=== PATIENT | female | born 1935 | race Caucasian/White ===

== ENCOUNTER 2016-07-23 10:06 | Inpatient (IN) | payer OTHER, BC ==
--- NOTE | 2016-07-23 10:20 | CPEKG ---
Heart Rate: 56 RR Interval: 1071 P-R Interval: 172 QRSD Interval: 112 QT Interval: 482 QTC Interval: 466 P Tilly: 69 QRS Tilly: 72 T Wave Tilly: 222 EKG Severity - ABNORMAL ECG - EKG Impression: SINUS RHYTHM EKG Impression: NONSPECIFIC INTRAVENTRICULAR CONDUCTION DELAY EKG Impression: BORDERLINE INFERIOR Q WAVES EKG Impression: MINIMAL ST DEPRESSION, LATERAL LEADS Electronically Signed By: Jordan Watkins 24-Jul-2016 14:19:42
--- NOTE | 2016-07-23 10:43 | EDPHY ---
H & P Time Seen by Provider: 07/23/16 10:10 HPI/ROS: CHIEF COMPLAINT: Syncope HISTORY OF PRESENT ILLNESS: Patient is an 81-year-old female with a history of diabetes hypertension and CHF who presents to the emergency department with a syncopal episode. The patient states she was walking in her backyard. She felt lightheaded and dizzy. Per her neighbor she sat down and put her head between her legs. She then had a syncopal episode. EMS was called. Patient has no complaints on arrival to the emergency department. She denies any headache. No lightheadedness or dizziness. No chest pain or shortness of breath. Patient denies any trauma. The patient is without complaint. REVIEW OF SYSTEMS: My complete review of systems is negative except as mentioned in the HPI. Past Medical/Surgical History: Includes diabetes, hypertension, CVA, CHF PSH: Cardiac surgery Social: Patient does not smoke Smoking Status: Former smoker Physical Exam: Vitals noted. When I was in the room patient was hypotensive with blood pressure 82/50. Heart rate was 48. At this time the patient had no complaints. She is not lightheaded or dizzy. No chest pain. GENERAL: Well-appearing, in no acute distress, alert. HEENT: Eyes normal to inspection, normal pharynx, no signs of dehydration. NECK: No thyromegaly, no lymphadenopathy, supple. RESPIRATORY: Clear to auscultation bilaterally, no rales, rhonchi or wheezing. CVS: Regular rate and rhythm, no rubs, murmurs, or gallops. ABDOMEN: Soft, nontender, nondistended, no organomegaly. BACK: Normal to inspection, no CVA tenderness. SKIN: Normal color, no rash, warm, dry. No pallor. EXTREMITIES: No pedal edema, no calf tenderness, no Homans sign or cords, no joint swelling. NEURO/PSYCH: Higher functions: Alert and Oriented x3. Normal speech and cognition. Normal mood and affect. Cranial nerves: Normal as tested. Cerebellar: Normal as tested. Good finger to nose, good [id number], normal gait. Peripheral exam: [Normal motor exam. Normal sensation. Normal reflexes. Constitutional: Initial Vital Signs Temperature (C) 36.5 C 07/23/16 10:16 Heart Rate 58 L 07/23/16 10:16 Respiratory Rate 20 07/23/16 10:16 Blood Pressure 82/50 L 07/23/16 10:16 O2 Sat (%) 95 07/23/16 10:16 O2 Delivery Mode Room Air O2 (L/minute) 2 Allergies/Adverse Reactions: Sulfa (Sulfonamide Antibiotics) Allergy (Verified 07/23/16 10:16) Home Medications: Medication Instructions Recorded Aspirin 81mg (*) 07/23/16 Glucotrol 07/23/16 Lantus 100 UNITS/ML (*) 07/23/16 Lasix 07/23/16 Lipitor 07/23/16 Metoprolol Succinate 07/23/16 Synthroid 07/23/16 Medical Decision Making - Diagnostics EKG Interpretation: Sinus bradycardia at 56. Normal axis. Nonspecific interventricular conduction delay. Q-wave in II, III, avf. Minimal edpression in V3. ED Course/Re-evaluation: In the emergency department I met the patient on arrival. Laboratory studies, EKG, portable chest x-ray ordered. Patient was given aspirin 324 mg orally. Pacer pads were placed. Patient was given normal saline 500 mL IV bolus. I am aware the patient has a history of CHF. However, the patient is hypotensive at this time. I rechecked the patient on numerous occasions. She had no new complaints during her stay. She did have labile blood pressure with episodes of hypotension and episodes of normal pressure. Patient's laboratory studies were notable for a mildly elevated creatinine 1.9. CO2 was low at 16. AST and alk-phos mildly elevated. Albumin and protein mildly low. Patient was mildly anemic with hematocrit of 30. Troponin is elevated at 0.4. I discussed the case with the hospitalist service. They agreed to admission. Dr. Beal will admit. Differential Diagnosis: My differential includes but is not limited to ACS, acute [place], dysrhythmia, valvular disease, dehydration, hypoglycemia, electrolyte abnormality, dehydration - Data Points Laboratory Results: Laboratory Results 07/23/16 Unknown 07/23/16 10:31 07/23/16 07/23/16 07/23/16 Unknown Unknown 10:35 WBC 9.97 10^3/uL H 10^3/uL (3.80-9.50) RBC 3.30 10^6/uL L 10^6/uL (4.18-5.33) Hgb 9.2 g/dL L g/dL (12.6-16.3) POC Hgb 10.5 gm/dL L gm/dL (12.3-15.9) Hct 30.5 % L % (38.0-47.0) POC Hct 31 % L % (35.5-47.5) MCV 92.4 fL fL (81.5-99.8) MCH 27.9 pg pg (27.9-34.1) MCHC 30.2 g/dL L g/dL (32.4-36.7) RDW 14.3 % % (11.5-15.2) Plt Count 209 10^3/uL 10^3/uL (150-400) MPV 12.0 fL H fL (8.7-11.7) Neut % (Auto) 72.9 % % (39.3-74.2) Lymph % (Auto) 17.3 % % (15.0-45.0) [place] % (Auto) 6.4 % % (4.5-13.0) Eos % (Auto) 2.4 % % (0.6-7.6) Baso % (Auto) 0.5 % % (0.3-1.7) Nucleat RBC Rel Count 0.0 % % (0.0-0.2) Absolute Neuts (auto) 7.27 10^3/uL H 10^3/uL (1.70-6.50) Absolute Lymphs (auto) 1.72 10^3/uL 10^3/uL (1.00-3.00) Absolute Monos (auto) 0.64 10^3/uL 10^3/uL (0.30-0.80) Absolute Eos (auto) 0.24 10^3/uL 10^3/uL (0.03-0.40) Absolute Basos (auto) 0.05 10^3/uL 10^3/uL (0.02-0.10) Absolute Nucleated RBC 0.00 10^3/uL 10^3/uL (0-0.01) Immature Gran % 0.5 % % (0.0-1.1) Immature Gran # 0.05 10^3/uL 10^3/uL (0.00-0.10) PT 14.0 SEC SEC (12.0-15.0) INR 1.09 (0.83-1.16) APTT 31.5 SEC SEC (23.0-38.0) POC Sodium 142 mEq/L mEq/L (134-144) Sodium POC Potassium 4.6 mEq/L mEq/L (3.3-5.0) Potassium POC Chloride 113 mEq/L H mEq/L (96-108) Chloride Carbon Dioxide Anion Gap POC BUN 47 mg/dL H mg/dL (7-23) BUN Creatinine POC Creatinine 2.0 mg/dL H mg/dL (0.6-1.2) Estimated GFR Glucose POC Glucose 241 mg/dL H mg/dL (70-100) Calcium Total Bilirubin AST ALT Alkaline Phosphatase Troponin I Total Protein Albumin 07/23/16 10:31 WBC RBC Hgb POC Hgb Hct POC Hct MCV MCH MCHC RDW Plt Count MPV Neut % (Auto) Lymph % (Auto) [place] % (Auto) Eos % (Auto) Baso % (Auto) Nucleat RBC Rel Count Absolute Neuts (auto) Absolute Lymphs (auto) Absolute Monos (auto) Absolute Eos (auto) Absolute Basos (auto) Absolute Nucleated RBC Immature Gran % Immature Gran # PT INR APTT POC Sodium Sodium 141 mEq/L mEq/L (134-144) POC Potassium Potassium 5.2 mEq/L mEq/L (3.5-5.2) POC Chloride Chloride 113 mEq/L H mEq/L (97-110) Carbon Dioxide 16 mEq/l L mEq/l (22-31) Anion Gap 12 mEq/L mEq/L (8-16) POC BUN BUN 51 mg/dL H mg/dL (7-23) Creatinine 1.9 mg/dL H mg/dL (0.6-1.0) POC Creatinine Estimated GFR 25 Glucose 244 mg/dL H mg/dL (70-100) POC Glucose Calcium 9.2 mg/dL mg/dL (8.5-10.4) Total Bilirubin 0.7 mg/dL mg/dL (0.1-1.4) AST 75 IU/L H IU/L (14-46) ALT 40 IU/L IU/L (9-52) Alkaline Phosphatase 131 IU/L H IU/L (38-126) Troponin I 0.400 ng/mL H ng/mL (0-0.034) Total Protein 5.6 g/dL L g/dL (6.3-8.2) Albumin 3.2 g/dL L g/dL (3.5-5.0) Medications Given: Discontinued Medications Sodium Chloride (Ns) 500 mls @ 0 mls/hr IV EDNOW ONE PRN Reason: Wide Open Stop: 07/23/16 10:52 Last Admin: 07/23/16 10:35 Dose: 500 mls Point of Care Test Results: 07/23/16 10:35 POC Sodium 142 POC Potassium 4.6 POC Chloride 113 H POC BUN 47 H POC Creatinine 2.0 H POC Glucose 241 H Departure - Departure Disposition: [facility] Inpatient Acute Clinical Impression: Bradycardia, Elevated troponin Syncope Qualifiers: Syncope type: unspecified Qualified Code(s): R55 - Syncope and collapse Condition: Good Referrals: Patient,NotPresent [Primary Care Provider] - As per Instructions
[2016-07-23] MEDS ORDERED: NS 500 ML IV ONE (10:51)
[2016-07-23 11:48] LABS: % IMMATURE GRANULYOCYTES 0.5 % (0.0-1.1); ABSOLUTE IMMATURE GRANULOCYTES 0.05 10^3/uL (0.00-0.10); ADD DIFF? NO; ADD MORPH? NO; ADD SCAN? NO; ATYPICAL LYMPHOCYTE FLAG 10 (0-99); FRAGMENT RBC FLAG 0 (0-99); HEMATOCRIT 30.5 % (38.0-47.0); HEMOGLOBIN 9.2 g/dL (12.6-16.3); LEFT SHIFT FLG 0 (0-99); LIPEMIA HEMOLYSIS FLAG 80 (0-99); MEAN CELL HEMOGLOBIN 27.9 pg (27.9-34.1); MEAN CELL HEMOGLOBIN CONCENTR. 30.2 g/dL (32.4-36.7); MEAN CELL VOLUME 92.4 fL (81.5-99.8); PLATELET CLUMPS FLAG 10 (0-99); PLATELET COUNT 209 10^3/uL (150-400); RED CELL DISTRIBUTION WIDTH 14.3 % (11.5-15.2)
[2016-07-23 11:58] LABS: ALANINE AMINOTRANSFERASE 40 IU/L (9-52); ALBUMIN 3.2 g/dL (3.5-5.0); ALKALINE PHOSPHATASE 131 IU/L (38-126); ANION GAP 12 mEq/L (8-16); ASPARTATE AMINOTRANSFERASE 75 IU/L (14-46); BILIRUBIN,TOTAL 0.7 mg/dL (0.1-1.4); CALCIUM 9.2 mg/dL (8.5-10.4); CARBON DIOXIDE 16 mEq/l (22-31); CHLORIDE 113 mEq/L (97-110); CREATININE 1.9 mg/dL (0.6-1.0); GLOMERULAR FILTRATION RATE 25; GLUCOSE 244 mg/dL (70-100); POTASSIUM 5.2 mEq/L (3.5-5.2); SODIUM 141 mEq/L (134-144); TOTAL PROTEIN 5.6 g/dL (6.3-8.2)
[2016-07-23 11:58] LABS: INR 1.09 (0.83-1.16)
[2016-07-23 11:59] LABS: APTT 31.5 SEC (23.0-38.0)
[2016-07-23] MEDS ORDERED: ONDANSETRON 4 MG/2 ML VIAL IVP PRN (14:15)
[2016-07-23] MEDS ORDERED: ONDANSETRON DISINTEGRATING 4 MG TAB PO PRN (14:15)
[2016-07-23] MEDS ORDERED: D50W 25 GM/50 ML SYR IVP PRN (14:22)
--- NOTE | 2016-07-23 15:47 | CPEKG ---
Heart Rate: 71 RR Interval: 845 P-R Interval: 168 QRSD Interval: 110 QT Interval: 416 QTC Interval: 453 P [place]: 71 QRS [place]: 68 T Wave [place]: 247 EKG Severity - ABNORMAL ECG - EKG Impression: SINUS ARRHYTHMIA, RATE 62-86 EKG Impression: NONSPECIFIC INTRAVENTRICULAR CONDUCTION DELAY EKG Impression: BORDERLINE INFERIOR Q WAVES EKG Impression: BORDERLINE ST DEPRESSION, DIFFUSE LEADS Electronically Signed By: Jordan Watkins 24-Jul-2016 14:19:14
--- NOTE | 2016-07-23 15:50 | PDGENHP ---
History and Physical - Chief Complaint syncope History Information - Allergies/Home Medication List Allergies/Adverse Reactions: Sulfa (Sulfonamide Antibiotics) Allergy (Verified 07/23/16 10:16) Home Medications: Acetaminophen [Tylenol ES 500 mg (*)] 1,000 mg PO DAILY 07/23/16 [Last Taken Unknown] Acetaminophen [Tylenol ES 500 mg (*)] 500 mg PO DAILY@1800 07/23/16 [Last Taken Unknown] Aspirin [Aspirin 81mg (*)] 81 mg PO DAILY 07/23/16 [Last Taken Unknown] Atorvastatin Calcium [Lipitor 40 mg (*)] 80 mg PO DAILY 07/23/16 [Last Taken Unknown] Cholecalciferol Vit D3 [Vitamin D3 (*)] 2,000 units PO DAILY 07/23/16 [Last Taken Unknown] Cyanocobalamin [Vitamin B12 (*)] 2,000 mcg PO DAILY 07/23/16 [Last Taken Unknown ] Furosemide [Furosemide] 40 mg PO DAILY 07/23/16 [Last Taken Unknown] Herbals/Supplements -Info Only 1 ea PO DAILY 07/23/16 [Last Taken Unknown] Hydrocortisone 2.5% [Hydrocortisone 2.5% cream (*)] 1 bruno TP BID PRN 07/23/16 [ Last Taken Unknown] Levothyroxine Sodium 75 mcg PO DAILY@06 07/23/16 [Last Taken Unknown] Metoprolol Succinate [TOPROL XL] 12.5 mg PO DAILY 07/23/16 [Last Taken Unknown] Omeprazole [Prilosec 20 mg] 20 mg PO DAILY 07/23/16 [Last Taken Unknown] I have personally reviewed and updated: family history, medical history, social history, surgical history - Past Medical History coronary artery disease, CHF, CVA, diabetes type 2, hypertension, hyperlipidemia Additional medical history: CAD - s/p CABG 1998, h/o CVA - Surgical History Additional surgical history: CABG 1998 - Family History Additional family history: both parents are - Social History Smoking Status: Former smoker Alcohol Use: None Drug Use: None Additional social history: Lives alone since her daughter 4 yrs ago. Other daughter, Alejandra, lives in [facility]. Retired from [employer]. Review of Systems ROS: 10pt was reviewed & negative except for what was stated in HPI & below Physical Exam Temp Pulse Resp BP Pulse Ox 36.3 C 69 16 159/86 H 99 07/23/16 13:50 07/23/16 13:50 07/23/16 13:50 07/23/16 13:50 07/23/16 13:50 O2 (L/minute) 1 Constitutional: no apparent distress Eyes: PERRL Ears, Nose, Mouth, Throat: moist mucous membranes Cardiovascular: regular rate and rhythym, systolic murmur Respiratory: no respiratory distress, clear to auscultation Gastrointestinal: normoactive bowel sounds, soft, non-tender abdomen Skin: warm Musculoskeletal: full muscle strength, other (2+ b/l LE edema) Psychiatric: poor insight, poor memory Lab Data & Imaging Review 07/23/16 Unknown 07/23/16 10:31 WBC 9.97 10^3/uL (3.80-9.50) H 07/23/16 Unknown RBC 3.30 10^6/uL (4.18-5.33) L 07/23/16 Unknown Hgb 9.2 g/dL (12.6-16.3) L 07/23/16 Unknown POC Hgb 10.5 gm/dL (12.3-15.9) L 07/23/16 10:35 Hct 30.5 % (38.0-47.0) L 07/23/16 Unknown POC Hct 31 % (35.5-47.5) L 07/23/16 10:35 MCV 92.4 fL (81.5-99.8) 07/23/16 Unknown MCH 27.9 pg (27.9-34.1) 07/23/16 Unknown MCHC 30.2 g/dL (32.4-36.7) L 07/23/16 Unknown RDW 14.3 % (11.5-15.2) 07/23/16 Unknown Plt Count 209 10^3/uL (150-400) 07/23/16 Unknown MPV 12.0 fL (8.7-11.7) H 07/23/16 Unknown Neut % (Auto) 72.9 % (39.3-74.2) 07/23/16 Unknown Lymph % (Auto) 17.3 % (15.0-45.0) 07/23/16 Unknown [place] % (Auto) 6.4 % (4.5-13.0) 07/23/16 Unknown Eos % (Auto) 2.4 % (0.6-7.6) 07/23/16 Unknown Baso % (Auto) 0.5 % (0.3-1.7) 07/23/16 Unknown Nucleat RBC Rel Count 0.0 % (0.0-0.2) 07/23/16 Unknown Absolute Neuts (auto) 7.27 10^3/uL (1.70-6.50) H 07/23/16 Unknown Absolute Lymphs (auto) 1.72 10^3/uL (1.00-3.00) 07/23/16 Unknown Absolute Monos (auto) 0.64 10^3/uL (0.30-0.80) 07/23/16 Unknown Absolute Eos (auto) 0.24 10^3/uL (0.03-0.40) 07/23/16 Unknown Absolute Basos (auto) 0.05 10^3/uL (0.02-0.10) 07/23/16 Unknown Absolute Nucleated RBC 0.00 10^3/uL (0-0.01) 07/23/16 Unknown Immature Gran % 0.5 % (0.0-1.1) 07/23/16 Unknown Immature Gran # 0.05 10^3/uL (0.00-0.10) 07/23/16 Unknown PT 14.0 SEC (12.0-15.0) 07/23/16 Unknown INR 1.09 (0.83-1.16) 07/23/16 Unknown APTT 31.5 SEC (23.0-38.0) 07/23/16 Unknown VBG Lactic Acid 1.4 mmol/L (0.7-2.1) 07/23/16 14:50 POC Sodium 142 mEq/L (134-144) 07/23/16 10:35 Sodium 141 mEq/L (134-144) 07/23/16 10:31 POC Potassium 4.6 mEq/L (3.3-5.0) 07/23/16 10:35 Potassium 5.2 mEq/L (3.5-5.2) 07/23/16 10:31 POC Chloride 113 mEq/L (96-108) H 07/23/16 10:35 Chloride 113 mEq/L (97-110) H 07/23/16 10:31 Carbon Dioxide 16 mEq/l (22-31) L 07/23/16 10:31 Anion Gap 12 mEq/L (8-16) 07/23/16 10:31 POC BUN 47 mg/dL (7-23) H 07/23/16 10:35 BUN 51 mg/dL (7-23) H 07/23/16 10:31 Creatinine 1.9 mg/dL (0.6-1.0) H 07/23/16 10:31 POC Creatinine 2.0 mg/dL (0.6-1.2) H 07/23/16 10:35 Estimated GFR 25 07/23/16 10:31 Glucose 244 mg/dL (70-100) H 07/23/16 10:31 POC Glucose 241 mg/dL (70-100) H 07/23/16 10:35 Calcium 9.2 mg/dL (8.5-10.4) 07/23/16 10:31 Total Bilirubin 0.7 mg/dL (0.1-1.4) 07/23/16 10:31 AST 75 IU/L (14-46) H 07/23/16 10:31 ALT 40 IU/L (9-52) 07/23/16 10:31 Alkaline Phosphatase 131 IU/L (38-126) H 07/23/16 10:31 Troponin I 0.400 ng/mL (0-0.034) H 07/23/16 10:31 Total Protein 5.6 g/dL (6.3-8.2) L 07/23/16 10:31 Albumin 3.2 g/dL (3.5-5.0) L 07/23/16 10:31 Assessment & Plan Assessment: NSTEMI in 81 yo diabetic female with h/o CAD s/p CABG in 1998 - Presented with syncope, hypotension and bradycardia. Trop up to 1.5, EKG with downsloping ST segments in inferior / lateral leads and mild dynamic changes. Pt is currently CP free and never had CP, but felt very weak prior to collapsing. Echo shows inferior hypokinesis, which is new from prior 2014 echo (reviewed in [place]). Also has moderate MR, mod-severe TR and pulmonary pressures in the 70 range. -Cardiology consulted, discussed with Dr. Carvajal, deferring angiogram at this time, in favor of medical management -Heparin drip, NPO at midnight to re-evaluate indication for angiogram in am -Full dose ASA now -Cont outpt statin, low dose BB -Repeat EKG in am or prn for CP -Cont to trend trop, notify cards if change in status or trop markedly elevated (>5) Syncope - Possibly in setting of NSTEMI, but also considered PE with increased PAP's on echo. Cr is elevated so can't have CTA. -check LE dopplers -she is being anti-coagulated as above -monitor on tele Hypotension / Bradycardia - Suspect 2/2 NSTEMI, completely resolved after 500 cc fluid bolus in ED. Lactate normal. No e/o infection to raise suspicion for septic shock. -check blood cultures -Echo / NSTEMI management as above. -telemetry -resume low dose BB per discussion with cards due to NSTEMI indication, hold for bradycardia or hypotension GERARDO - Unclear what her baseline is. Suspect pre-renal vs ATN in setting of hypotension and VA. -Check urine Cr and urine Na to calculate FeNa. -Hold Lasix for now -trend creatinine -consider nephrology consult if Cr on the rise H/O HF - Has h/o diastolic failure, EF now 30-35% with new hypokinesis. No e/o overt failure though LE edema and mild JVD noted. -closely monitor volume status, resume Lasix as indicated LE edema - may be a venous stasis component. -LE duplex as above DM - Hyperglycemic ~200's on arrival. Per the med rec, she is not on oral hypoglycemics. -SSI for glycemic control, up-titrate as indicated. Cognitive changes - inappropriate laughing, poor memory. Unclear if she has some baseline dementia. -CT head now -speech / full cog eval requested DVT PPLX - Heparin Code status - discussed with patient and daughter Alejandra, who will arrive tomorrow. Both agree she wishes to be DNR.
[2016-07-23 15:54] LABS: COLOR YELLOW; LEUKOCYTE ESTERASE,URINE TRACE (NEGATIVE); NITRITE,URINE NEGATIVE (NEGATIVE)
[2016-07-23 15:56] LABS: MUCUS TRACE /lpf (NONE-1+)
[2016-07-23] MEDS ORDERED: HYDROCORTISONE 2.5% 30 GM CRTUBE TP PRN (16:14)
[2016-07-23] MEDS ORDERED: ASPIRIN 81 MG CHEWABLE TAB PO SCH (16:14)
[2016-07-23 16:15] LABS: HEMOGLOBIN A1C 8.3 % (4.0-6.0)
[2016-07-23] MEDS ORDERED: ASPIRIN 325 MG TAB PO ONE (16:21)
--- NOTE | 2016-07-23 16:22 | ECHO ---
[id number] + + [phone] : : [place] [address] : : [phone] + + Adult Echocardiographic Report + -------+ :Name: COLLIN MARINELLI Date: 07/23/2016 02:25 PM BP: 159/86 mmH g : : Hospital Admission Number: [id number] Locati on: 394: :: 1935 Gender: Female Height: 64 in : :Age: 81 yrs Race: Weight: 184 lb : :Reason For Study: syncope, hypotension : : BSA: 1.9 meter s2 : :History: syncope, hypotension : + -------+ MMode/2D Measurements \T\ Calculations IVSd: 0.96 cm RVDd: 4.3 cm FS: 18.4 % MV Diam: 3.4 cm LVPWd: 0.79 cm LVIDd: 5.1 cm EDV(Teich): 121.2 ml LVIDs: 4.1 cm ESV(Teich): 75.1 ml EF(Teich): 38.0 % LVOT diam: 1.8 cm LVLd ap4: 9.1 cm SV(MOD-sp4): 70.0 ml LVOT area: 2.6 cm2EDV(MOD-sp4): 176.0 ml LVLs ap4: 8.6 cm ESV(MOD-sp4): 106.0 ml EF(MOD-sp4): 39.8 % Normal Measurement Values: + + :LVIDd (3.5-5.7cm) IVSd (0.6-1.1cm) LVPWd (0.6-1.1cm) Aortic Root (2.0-3.7cm)Left Atrium (1.5-4.0cm): :LV Vol(d) (76-115ml) LV Vol(s) (29-48ml) Ejec Fraction (50-65%)PV Keo (0.6- 1.2m/s) TV Keo (0.4-1.0m/s) : :MV E Keo (0.8-1.0m/s)MV A Keo (0.3-1.0m/s)LVOT Keo (0.7-1.2m/s) Asc Ao Keo ( 0.9-1.8m/s) : + + Doppler Measurements \T\ Calculations MV E max keo: MV V2 max: Ao V2 max: AI max keo: 103.7 cm/sec 85.4 cm/sec 167.7 cm/sec 481.4 cm/sec MV A max keo: MV max P.9 mmHg Ao max PG: AI max P.1 cm/sec MV V2 mean: 11.3 mmHg 92.8 mmHg MV E/A: 1.5 46.1 cm/sec Ao mean PG: AI dec slope: MV dec time: MV mean P.7 mmHg 348.3 cm/sec2 0.11 sec 0.97 mmHg Ao V2 mean: AI P1/2t: MV V2 VTI: 23.5 cm 126.1 cm/sec 404.9 msec MV area (1 diam): Ao V2 VTI: 9.3 cm2 44.4 cm ZACKARY(I,D): 1.1 cm2 MVA(VTI): 2.0 cm2 MV Flow area (1diam): 9.3 cm2 LV V1 mean PG: MR max keo: MR(RF 1 diam): SV(MV 1 diam): 1.2 mmHg 609.6 cm/sec 32.4 % 219.9 ml LV V1 mean: MR max PG: SI(MV 1 diam): 51.9 cm/sec 148.6 mmHg 116.5 ml/m2 LV V1 VTI: 18.3 cm SV(LVOT): 46.7 ml PA V2 max: PI end-d keo: TR max keo: RF(MV,LVOT)(1diam): 83.6 cm/sec 129.2 cm/sec 388.2 cm/sec 0.79 PA max PG: TR max P.8 mmHg 60.3 mmHg RAP systole: 10.0 mmHg RVSP(TR): 70.3 mmHg Left Ventricle The left ventricle is normal in size. There is normal left ventricular wall thickness. Ejection Fraction = 35-40%. Left ventricular systolic function is moderately reduced. Moderate diastolic dysfunction with elevated LV filling pressures. Basal inferolateral, inferoseptal and inferior barillas are hypokinetic. Right Ventricle The right ventricle is mildly dilated. The right ventricular systolic function is borderline reduced. Atria The Left Atrial Volume is 43 ml/m2. The left atrium is moderately dilated. The right atrium is mildly dilated. A dilated inferior vena cava suggests increased right atrial pressure. Mitral Valve The mitral valve leaflets appear thickened, but open well. There is moderate mitral annular calcification. There is no mitral valve stenosis. There is moderate mitral regurgitation. ERO = .32, Regurgitant volume = 70ml/beat, vena contracta .5 and regurgitant fraction 33%. Tricuspid Valve The tricuspid valve is normal in structure and function. There is no tricuspid stenosis. There is moderate to severe tricuspid regurgitation. Right ventricular systolic pressure is 65-70mmHg. There is Doppler evidence for severe pulmonary hypertension. Aortic Valve The aortic valve is trileaflet. Mild Aortic Valve Calcification. There is no aortic stenosis. Moderate aortic regurgitation. Pulmonic Valve The pulmonic valve is not well visualized. Mild pulmonic valvular regurgitation. Great Vessels The aortic root is normal size. Pericardium/Pleural There is no pericardial effusion. Conclusion A two-dimensional transthoracic echocardiogram with M-mode and Doppler was performed. Left ventricular systolic function is moderately reduced. Basal inferolateral, inferoseptal and inferior barillas are hypokinetic. Ejection Fraction = 35-40%. The right ventricle is mildly dilated. The right ventricular systolic function is borderline reduced. The Left Atrial Volume is 43 ml/m2. The left atrium is moderately dilated. The right atrium is mildly dilated. A dilated inferior vena cava suggests increased right atrial pressure. The mitral valve leaflets appear thickened, but open well. There is moderate mitral annular calcification. There is moderate mitral regurgitation. ERO = .32, Regurgitant volume = 70ml/beat, vena contracta .5 and regurgitant fraction 33%. There is moderate to severe tricuspid regurgitation. Right ventricular systolic pressure is 65-70mmHg. There is Doppler evidence for severe pulmonary hypertension. Moderate aortic regurgitation. Mild pulmonic valvular regurgitation. Results discussed with Dr. Beal. No prior echo Final Reading Physician: Dr Sheba Carvajal electronically signed on 07/23/2016 04:20 PM Ordering Physician: Sarina Beal Performed By: Renetta Da Silva
[2016-07-23] MEDS ORDERED: HEPARIN 10,000 UNIT/10 ML MDV IVP ONE (16:53)
[2016-07-23] MEDS ORDERED: HEPARIN 10,000 UNIT/10 ML MDV IVP PRN (16:53)
[2016-07-23] MEDS ORDERED: HEPARIN/DEXTROSE 500 ML IV SCH (17:00)
--- NOTE | 2016-07-23 18:14 | GCON ---
[f rep st] CONSULTATION CARDIOLOGY CONSULTATION DATE OF CONSULTATION: 07/23/2016 CHIEF COMPLAINT: Syncope. HISTORY OF PRESENT ILLNESS: We are asked by Dr. Beal to visit with the patient. The patient is an 81-year-old female with a history of bypass, diabetes, hypertension. She was last seen by Dr. Josh orellana in our office in 2014. She was in her normal state of health this morning. She was leaving her house to go have breakfast when she felt suddenly weak and lightheaded. She fell and does not know if she hit her head. She i s not sure if she actually lost consciousness. A neighbor called the ambulance and she was brought to the ER. Initially, she was hypotensive to 77/47, and bradycardic with the lowest heart rate of 4 8. She was given IV fluids with improvement in her vital signs, and she is now somewhat hypertensiv e, 159/86. She has a minimally elevated troponin, and mildly abnormal EKG. She did have an echocar diogram, which I reviewed. This shows a depressed ejection fraction at 35% to 40% with inferior hyp okinesis and valvular heart disease (moderate mitral regurgitation, moderate to severe tricuspid reg urgitation, and moderate aortic regurgitation). She has severe pulmonary hypertension with an estim ated PA systolic pressure of 65-70. Her last echocardiogram in our office was in 2012 and showed no rmal ejection fraction without significant valvular disease. She is now admitted for further evalua tion and management. She was also found to be in renal failure with an unknown baseline creatinine. She is now admitted for further evaluation and management. During my interview, she reports that she feels back to normal. She is no longer lightheaded. She denies associated palpitations or chest discomfort around the time that she had presyncope. In [facility], she has not had problems with chest pain or dyspnea or palpitations. She does have chronic mil d bilateral lower extremity edema. REVIEW OF SYSTEMS: A full 10-point review of systems was performed, was negative except that which is outlined in history of present illness. ALLERGIES: Sulfa. PAST MEDICAL HISTORY: 1. Coronary artery disease with a history of CABG. Her anatomy is not known to me at this time. W e have requested records from the [facility]. Her bypass was in 1979. 2. Hypertension. 3. Diabetes. 4. Past history of tobacco abuse. 5. Obesity. 6. History of stroke, although this is per the patient and I do not see this in her medical record from our office. 7. Hypothyroidism. 8. GERD. OUTPATIENT MEDICATIONS: Tylenol, aspirin 81 mg daily, Atorvastatin 80 mg daily, vitamin D3, vitamin B12, Lasix 40 mg daily, hydrocortisone topically, Synthroid 75 mcg daily, Toprol 12.5 mg daily, and Prilosec 20 mg daily. PAST SOCIAL HISTORY: The patient lives alone. She has a daughter who lives in [facility]. S he no longer smokes cigarettes. She drinks alcohol occasionally. FAMILY HISTORY: Not applicable to the current case. PHYSICAL EXAMINATION: VITAL SIGNS: Blood pressure 159/86, heart rate 69, respiratory rate 16, oxyg en saturation 99% on 1 L nasal cannula. She is afebrile. GENERAL: Well-appearing older female, in no acute distress. She is laughing somewhat inappropriately during our interview. HEENT: Sclerae are clear and free of jaundice. Mucous membranes are moist. Normocephalic, atraumatic. CARDIOVAS CULAR: JVP is approximately 10 cm of water. Carotids equal and 2+ without bruit. Regular rate and rhythm with a 2/6 holosystolic murmur at the left sternal border and the apex. LUNGS: Clear to au scultation bilaterally, without wheeze or rales. ABDOMEN: Obese, soft, nontender, nondistended, wi thout bruits, masses, or hepatosplenomegaly. EXTREMITIES: Warm and well perfused with 1+ pitting e teresita to the midshin bilaterally. She has a well-healed saphenous vein harvest site and also a well- healed sternotomy scar. No cyanosis, no clubbing. LABORATORY DATA: White count 9.97, hematocrit 30.5, platelets are 209. INR is normal. Venous lact ic acid is 1.4. Sodium 142, potassium 4.6, chloride 113, BUN 51, creatinine 1.9, glucose 244. Hemo globin A1c 8.3. AST 75, ALT 40, alk phos 131. Troponin initially 0.4, now 1.5. Urinalysis is not remarkable. EKG x2, reviewed by me. Sinus rhythm with minimal diffuse ST depression. Echocardiogram reviewed by me and as detailed in the history of present illness. Chest x-ray, reviewed by me: Genz-eg-szmeulll cardiomegaly, keom-at-zekllzvx hiatal hernia. No eff usion or infiltrate. No pulmonary edema. ASSESSMENT AND PLAN: 81-year-old female with a history of coronary disease and remote bypass surger y, diabetes, hypertension, admitted with syncope and initially found to be hypotensive and bradycard ic. She is now hemodynamically stable and not complaining of anything, including no chest pain. Sh e does have a mildly elevated troponin and an abnormal echocardiogram, as well as renal insufficienc y with unclear baseline. 1. Elevated troponin/history of coronary disease/history of coronary artery bypass graft: The princess ent has no chest pain. Her EKG does not show ST elevation. Because she has had hemodynamic stabili zation and she has a creatinine of 2, I do not think that she should have urgent cardiac catheteriza tion. We will medically manage her with IV heparin, aspirin, high-dose statin, and low-dose beta bl ocker (we will have to be careful with the latter given her recent bradycardia). Could consider fur ther risk stratification with angiogram depending on her clinical course and repeat labs, including her repeat troponin and creatinine. 2. Cardiomyopathy and valvular heart disease: She does not appear to be in florid heart failure. She does take Lasix as an outpatient, but we have held this due to her renal injury. She does have moderate to severe tricuspid regurgitation, moderate mitral regurgitation, moderate aortic regurgita tion. She also has significant pulmonary hypertension. We will evaluate for deep venous thrombosis with ultrasound, as CT angiogram of her lungs is relatively contraindicated given her renal failure . Medical management of her coronary disease as detailed above. 3. Syncope: This could be cardiac in origin. Monitor on telemetry. Consider cardiac catheterizat ion depending on her clinical course. Could also consider nuclear stress testing as a less invasive option. 4. Hypertension: She presented with hypotension. There was no history of decreased p.o. or viral illness or gastroenteritis. Again, this could have been inferior ischemia with vasovagal bradycardi a and hypotension. This has resolved. Follow on telemetry. Judicious use of beta ena. 5. Diabetes: Per Internal Medicine. Her hemoglobin A1c is just over 8. 6. Renal insufficiency: Unknown baseline. She has received some fluids. Lasix is on hold. Avoid contrast if possible. Check serial creatinine. 7. Code status: Dr. Beal has discussed the patient's case with the patient's daughter as well a s the patient herself, and they confirmed that she is DNR. Thank you for allowing us to participate in the patient's care. We will follow with you. /[id number]/MODL
[2016-07-23] MEDS ORDERED: NS 1,000 ML IV SCH (18:30)
[2016-07-23 18:45] LABS: INR 1.08 (0.83-1.16); PROTIME(PATIENT) 13.9 SEC (12.0-15.0)
[2016-07-23 18:46] LABS: APTT 31.3 SEC (23.0-38.0)
[2016-07-23] MEDS ORDERED: HEPARIN 5,000 UNIT/0.5 ML SYR SC SCH (22:00)
[2016-07-23] MEDS: NS 1,000 ML IV SCH (23:00)
[2016-07-23] MEDS: METOPROLOL TARTRATE 25 MG TAB PO SCH ×2 (23:19→23:54)
[2016-07-23] MEDS: INSULIN LISPRO 100 UNIT/ML SC SCH (23:54)
[2016-07-24 05:21] LABS: % IMMATURE GRANULYOCYTES 0.5 % (0.0-1.1); ABSOLUTE IMMATURE GRANULOCYTES 0.03 10^3/uL (0.00-0.10); ADD DIFF? NO; ADD MORPH? NO; ADD SCAN? NO; ATYPICAL LYMPHOCYTE FLAG 0 (0-99); FRAGMENT RBC FLAG 0 (0-99); HEMATOCRIT 25.1 % (38.0-47.0); HEMOGLOBIN 7.8 g/dL (12.6-16.3); LEFT SHIFT FLG 0 (0-99); LIPEMIA HEMOLYSIS FLAG 80 (0-99); MEAN CELL HEMOGLOBIN CONCENTR. 31.1 g/dL (32.4-36.7); PLATELET CLUMPS FLAG 10 (0-99); PLATELET COUNT 156 10^3/uL (150-400); RED BLOOD CELL COUNT 2.79 10^6/uL (4.18-5.33); RED CELL DISTRIBUTION WIDTH 14.3 % (11.5-15.2)
[2016-07-24 05:24] LABS: ALANINE AMINOTRANSFERASE 40 IU/L (9-52); ALBUMIN 2.9 g/dL (3.5-5.0); ALKALINE PHOSPHATASE 101 IU/L (38-126); ANION GAP 10 mEq/L (8-16); ASPARTATE AMINOTRANSFERASE 52 IU/L (14-46); BILIRUBIN,TOTAL 0.5 mg/dL (0.1-1.4); CALCIUM 8.8 mg/dL (8.5-10.4); CARBON DIOXIDE 17 mEq/l (22-31); CHLORIDE 116 mEq/L (97-110); CREATININE 1.7 mg/dL (0.6-1.0); GLOMERULAR FILTRATION RATE 29; GLUCOSE 145 mg/dL (70-100); SODIUM 143 mEq/L (134-144); TOTAL PROTEIN 5.2 g/dL (6.3-8.2)
[2016-07-24] MEDS: LEVOTHYROXINE 75 MCG TAB PO SCH (07:11)
[2016-07-24] MEDS: ATORVASTATIN CALCIUM 40 MG TAB PO SCH (07:14)
[2016-07-24] MEDS: ASPIRIN 81 MG CHEWABLE TAB PO SCH (07:14)
[2016-07-24] MEDS: METOPROLOL TARTRATE 25 MG TAB PO SCH ×2 (07:14→19:54)
[2016-07-24] MEDS ORDERED: PANTOPRAZOLE SODIUM 40 MG TAB PO SCH (09:00)
--- NOTE | 2016-07-24 09:06 | CPEKG ---
Heart Rate: 53 RR Interval: 1132 P-R Interval: 168 QRSD Interval: 98 QT Interval: 496 QTC Interval: 466 P Sontag: 68 QRS Sontag: 69 T Wave Sontag: 255 EKG Severity - ABNORMAL ECG - EKG Impression: SINUS RHYTHM EKG Impression: INFERIOR Q WAVES EKG Impression: ABNORMAL T, CONSIDER ISCHEMIA, DIFFUSE LEADS Electronically Signed By: Jordan Watkins 24-Jul-2016 14:18:54
[2016-07-24] MEDS ORDERED: PANTOPRAZOLE SODIUM 80 MG in NS 100 ML IV ONE ×2 (11:32→16:00)
[2016-07-24] MEDS ORDERED: ALTEPLASE 2 MG VIAL IVP PRN (11:37)
[2016-07-24 12:14] LABS: HEMATOCRIT 29.7 % (38.0-47.0); HEMOGLOBIN 9.2 g/dL (12.6-16.3)
[2016-07-24] MEDS: INSULIN LISPRO 100 UNIT/ML SC SCH ×3 (12:17→19:52)
--- NOTE | 2016-07-24 14:10 | GCON ---
[f rep st] CONSULTATION CHIEF COMPLAINT: Melenic stool. HISTORY OF PRESENT ILLNESS: This is a very pleasant 81-year-old woman who presented to the hospital after a syncopal episode. She does have a history of coronary artery disease. She has had previous coronary artery bypass graft surgery. She also has history of diabetes mellitus and hypertension. She is followed by Dr. Butt. On the morning of admission, she was leaving her house to have breakfast with some friends. On the way out of her house she had a syncopal episode. This apparently was witnessed by a neighbor. She did wake up soon after the episode. EMS was called, and patient was brought to the emergency department. She was initially hypotensive and bradycardic. She was given IV fluids, with improvement of her vital signs. She has been hypertensive since she has been in the hospital. She did have an elevated troponin on admission, and had abnormal EKG with ST depression inferiorly. She had a previous cardiac echo that showed a depressed ejection fraction of 35% to 40% with inferior hypokinesis and valvular heart disease. She has moderate mitral regurgitation, and moderate to severe tricuspid regurgitation and moderate aortic regurgitation. She also has history of severe pulmonary hypertension. Previous cardiac echo in 2013 showed a normal ejection fraction at that time, without significant valvular heart disease. She was noted to be slightly anemic on admission. She has not had a significant drop in hematocrit. There was report of a small melenic stool last evening. She has had no further stools since admission. She denies any nausea or vomiting. She also denies any abdominal pain or discomfort. She does have a history of reflux disease for which she takes proton pump inhibitor. She denies any dysphagia. According to her record, she has no prior history of peptic ulcer disease. However patient does report a prior history of ulcer disease. However patient is a very poor historian with some memory loss. She does take aspirin on a regular basis, as well as high-dose Lipitor. She is also on Prilosec 20 mg daily. The patient is hemodynamically stable at present. She was typed and crossed for PRBC's but did not require transfusion. Her Hct was initially down at admission but follow up Hct was improved and close to admission Hct. Asked to see patient for further evaluation. PAST MEDICAL HISTORY: Remarkable for hypertension, history of CVA, gastroesophageal reflux disease, diabetes mellitus, status post CABG 1998, prior smoker, hypothyroidism. MEDICATIONS: Outpatient included: Tylenol, aspirin, atorvastatin 80 mg daily, vitamin D3, vitamin B12, Lasix 40 mg daily, hydrocortisone topically, Synthroid 75 mcg daily, Toprol 12.5 mg daily, and Prilosec 20 mg daily. SOCIAL HISTORY: Patient does live independently. She lost 1 child about 4 years ago. She has 1 daughter that lives out of state. She drinks alcohol occasionally. FAMILY HISTORY: Negative as it pertains to chief complaint. ALLERGIES: Sulfa. REVIEW OF SYSTEMS: Negative 10 systems, other than mentioned HPI. PHYSICAL EXAM: VITAL SIGNS: Blood pressure is 180/63, pulse of 57, respiratory rate 14, 36.6. GENERAL: Very pleasant woman in no acute distress. HEENT: Normocephalic, atraumatic. EOMI. NECK: Supple. No cervical adenopathy. No thyromegaly. Mucous membranes moist. LUNGS: Clear. CARDIAC: Normal S1, S2. 2/6 holosystolic murmur in the left sternal border. ABDOMEN: Soft. Normal bowel sounds. Nontender. EXTREMITIES: Without clubbing, cyanosis, edema. NEURO: Nonfocal. SKIN: Warm, dry, intact. PSYCH: Alert, somewhat confused but does answer questions appropriately, but cannot recall certain personal past history. She has a normal affect. LABORATORY DATA: Hemoglobin 9.2, hematocrit 29.7, platelets of 156. PT of 14.0 , INR of 1.09, and PTT of 31.5. Serum chemistries: Serum sodium 143, potassium 5.0, chloride 116, CO2 17, BUN of 52 with a creatinine 1.7. Troponin is 4.440, high peak was 5.230. IMPRESSION: 81-year-old woman with a syncopal episode with subendocardial ST- elevation myocardial infarction, with inferior changes on EKG. Patient with positive troponin. The patient was anemic on admission. Patient reported only one small black stool. She has been hemodynamically stable without significant signs of bleeding.. RECOMMENDATIONS: 1. I would continue on a Protonix drip 80 mg bolus and 8 mg/h for the next 24 hours, if stable then can switch to Protonix 40 mg PO BID. 2. Clear liquid diet. 3. Serial H and H. 4. Patient without any acute signs or symptoms of bleeding at present. I will discuss with Cardiology regarding risks of endoscopy in the setting of acute FL. However at the moment she has no acute signs or symptoms of bleeding and I think the risks of procedure at this point outweigh the benefits. Would follow clinically. If any acute changes and signs of active bleeding can proceed with EGD at that time. Will follow clinically at present. Will follow with you. /[id number]/MODL MTDD
--- NOTE | 2016-07-24 15:10 | HOSPPROG ---
Hospitalist Progress Note Assessment/Plan: 81 yo diabetic female with h/o CAD s/p CABG in 1998 - Presented with syncope, hypotension and bradycardia. #NSTEMI -continue medical management with IV hepatin/beta ena/asa -I discussed the case with Dr. Carvajal who would like to hold off on cardiac catheterization at this time #acute anemia concerning for acute blood loss/upper gi bleed -start iv protonix -gi consulted #Syncope likely due to NSTEMI with hypotension and bradycardia vs anemia vs doubt PE given neg leg dopplers GERARDO (improving)- Unclear what her baseline is. Suspect pre-renal vs NSAIDS vs ATN in setting of hypotension and OK. -avoid nephrotoxins -trend creatinine -consider nephrology consult if Cr on the rise H/O HF - Has h/o diastolic failure, EF now 30-35% with new hypokinesis. No e/o overt failure though LE edema and mild JVD noted. -closely monitor volume status, resume Lasix as indicated LE edema - may be a venous stasis component. -LE duplex as above DM - Hyperglycemic ~200's on arrival. Per the med rec, she is not on oral hypoglycemics. -SSI for glycemic control, up-titrate as indicated. Cognitive changes - inappropriate laughing, poor memory. Unclear if she has some baseline dementia. -CT head now -speech / full cog eval requested DVT PPLX - Heparin Code status - DNR. Subjective: denies chest pain. feels well. 1 episode of melena last night. endorsed tid motrin use at home Objective: Vital Signs Temp Pulse Resp BP Pulse Ox 36.6 C 57 L 14 180/63 H 95 07/24/16 12:00 07/24/16 12:00 07/24/16 12:00 07/24/16 12:00 07/24/16 12:00 Laboratory Results 07/24/16 11:50 07/24/16 04:57 07/23/16 07/24/16 07/25/16 05:59 05:59 05:59 Intake Total 1800 Output Total 500 Balance 1300 PT 14.0 SEC (12.0-15.0) 07/23/16 Unknown INR 1.09 (0.83-1.16) 07/23/16 Unknown - Physical Exam Constitutional: no apparent distress, appears nourished, not in pain Cardiovascular: regular rate and rhythym, no murmur, rub, or gallop Respiratory: no respiratory distress, no rales or rhonchi, clear to auscultation Gastrointestinal: normoactive bowel sounds, soft, non-tender abdomen, no palpable masses, No guarding, No rebound Neurologic: AAOx3, sensation intact bilaterally, CN II-XII Intact, No facial droop ICD10 Worksheet Patient Problems: Problems Problem Status Onset Syncope Acute Bradycardia Acute Elevated troponin Acute
[2016-07-24] MEDS: PANTOPRAZOLE SODIUM 80 MG in NS 100 ML IV SCH (15:51)
--- NOTE | 2016-07-24 17:27 | PDCARPN ---
Cardiology Progress Note Chief Complaint: Patient reports ongoing fatigue. Assessment/Plan: Assessment: 81-year-old female with history CAD, CABG (1979), diabetes, hypertension. Presenting to hospital with syncopal event on 07/23/2016. Noted to have minimal troponin elevation (0.4) with abnormal EKG on admission (sinus arrhythmia with T -wave inversion in diffuse leads). Echocardiogram done on admission showing LV size systolic function reduced with basal inferior lateral, inferior septal, inferior wall hypokinesis. EF was estimated at 35-40%, RV mildly dilated, reduction of RV systolic function, RA mildly dilated, dilated inferior vena cava suggesting high RA pressures, moderate mitral annular calcification, moderate MR, moderate to severe TR, RVSP 65-70 mm Hg, moderate AI, mild PI. Patient noted on admission to have elevated creatinine of 2.0. She was asymptomatic, decided to trend troponins. Started on aspirin, heparin, and beta -ena. Patient overnight reporting no chest pain or shortness of breath, no arrhythmias noted monitoring, a.m. EKG shows more progressive T-wave inversion in admission. A.M. lab showing troponin of 5.230. H&H reported an a.m. at 7.8 in 25.1 after being started on heparin drip. Repeated labs of later this afternoon show troponin downward trend 4.440, H&H improved to 9.2 & 29.7. Patient reporting black stools yesterday, denies of any hematemesis or bleeding issues. Plan: 1. NSTEMI: Known history of CAD, CABG in 1979. Patient asymptomatic of any chest pressure or pain, vital signs have been stable, renal insufficiency with creatinine at 2.0 on admission, decreased H&H. At current time, as long as she remains symptom-free, and stable, we will hold off on cardiac catheterization, until further evaluation of anemia. Agree with transfusion packed red blood cells in the setting of IN. Due to anemia, heparin drip DC per Dr. Carvajal, continue on aspirin therapy. 2. Acute anemia: Question GI bleed due to reported black bloody stools. GI consult ordered, Hemoccult stools x3. Dr. Mendoza has ordered 1 unit of packed red blood cells, agree due to it IN. 3. Renal insufficiency: Improving, continue following creatinines. 4. Valvular heart disease: As mentioned above an echo, does not appear to be in heart failure, hold off of diuretic therapy at this time, due to her recent renal insufficiency. 5. Cardiomyopathy: On beta-ena, will hold JENNY/ARB due to renal insufficiency. Consideration of starting as an outpatient. Hold diuresis as mentioned above. 6. Syncope: No arrhythmias throughout the evening. Potentially caused by anemia or IN (hypotension and/or arrhythmias), or a combination, continue on cardiac monitoring, anemia workup as mentioned above. 7. Hyperlipidemia: Continue on home dose of atorvastatin. Assessment and plan discussed with Dr. Carvajal 07/24/16 17:25 Subjective: Patient denies of any chest pain, shortness of breath, palpitations lightheadedness, near-syncope or syncopal events since hospitalization Reviewed/Discussed With: family (Patient Daughter), other (Dr Carvajal) Result Diagrams: 07/24/16 11:50 07/24/16 04:57 - Physical Exam Constitutional: WDWN, no apparent distress Ears, Nose, Mouth, Throat: moist mucous membranes Cardiovascular: regular rate and rhythm, systolic murmur (2/6 left sternal border), pulses symmetric bilat, No no rubs, No jugular vein distention, No carotid bruit Peripheral Pulses: 1+: dorsalis-pedis (R), dorsalis-pedis (L), 2+: carotid (R), carotid (L) Respiratory: clear to auscultate bilat (No rhonchi, rales, or wheezing noted.) Gastrointestinal: normoactive bowel sounds Skin: warm Neurologic: AAOx3 Psychiatric: cooperative, interactive, following commands ICD10 Worksheet Patient Problems: Problems Problem Status Onset Syncope Acute Bradycardia Acute Elevated troponin Acute
[2016-07-24] MEDS: ACETAMINOPHEN 325 MG TAB PO PRN (17:45)
[2016-07-25] MEDS: PANTOPRAZOLE SODIUM 80 MG in NS 100 ML IV SCH ×2 (02:26→08:52)
[2016-07-25 05:43] LABS: % IMMATURE GRANULYOCYTES 0.4 % (0.0-1.1); ABSOLUTE IMMATURE GRANULOCYTES 0.02 10^3/uL (0.00-0.10); ADD DIFF? NO; ADD MORPH? NO; ADD SCAN? NO; ATYPICAL LYMPHOCYTE FLAG 0 (0-99); FRAGMENT RBC FLAG 0 (0-99); HEMATOCRIT 28.3 % (38.0-47.0); LEFT SHIFT FLG 0 (0-99); LIPEMIA HEMOLYSIS FLAG 80 (0-99); MEAN CELL HEMOGLOBIN 28.8 pg (27.9-34.1); MEAN CELL HEMOGLOBIN CONCENTR. 31.8 g/dL (32.4-36.7); MEAN CELL VOLUME 90.4 fL (81.5-99.8); MEAN PLATELET VOLUME 11.7 fL (8.7-11.7); PLATELET CLUMPS FLAG 20 (0-99); PLATELET COUNT 138 10^3/uL (150-400); RED BLOOD CELL COUNT 3.13 10^6/uL (4.18-5.33); RED CELL DISTRIBUTION WIDTH 14.6 % (11.5-15.2)
[2016-07-25 06:38] LABS: ANION GAP 7 mEq/L (8-16); CALCIUM 8.7 mg/dL (8.5-10.4); CARBON DIOXIDE 17 mEq/l (22-31); CHLORIDE 118 mEq/L (97-110); CHOLESTEROL 81 mg/dL (140-220); CHOLESTEROL/HDL RATIO 3.12 RATIO (1.00-4.44); CREATININE 1.6 mg/dL (0.6-1.0); GLOMERULAR FILTRATION RATE 31; GLUCOSE 135 mg/dL (70-100); HIGH DENSITY LIPOPROTEIN 26 mg/dL (40-85); LDL/HDL RATIO 1.35 RATIO (1.00-3.22); LOW DENSITY LIPOPROTEIN 35 mg/dL (80-100); NON-HIGH DENSITY LIPOPROTEIN 55 mg/dL (90-129); POTASSIUM 4.9 mEq/L (3.5-5.2); SODIUM 142 mEq/L (134-144); TRIGLYCERIDE 102 mg/dL (35-135); VERY LOW DENSITY LIPOPROTEINS 20 mg/dL (8-25)
[2016-07-25] MEDS: LEVOTHYROXINE 75 MCG TAB PO SCH (08:53)
[2016-07-25] MEDS: ASPIRIN 81 MG CHEWABLE TAB PO SCH (08:53)
[2016-07-25] MEDS: ATORVASTATIN CALCIUM 40 MG TAB PO SCH (08:53)
[2016-07-25] MEDS: METOPROLOL TARTRATE 25 MG TAB PO SCH ×2 (08:53→09:57)
[2016-07-25] MEDS: INSULIN LISPRO 100 UNIT/ML SC SCH ×3 (09:17→18:28)
--- NOTE | 2016-07-25 09:25 | PDCARPN ---
Cardiology Progress Note Assessment/Plan: Assessment/plan: 81-year-old female with history of coronary disease. She had a CABG in 1979, her coronary anatomy is not known at this time. She also has a history of diabetes and hypertension. She was admitted on July 23 after syncopal episode that was witnessed at her home. She was found to have a positive troponin, peak was 5.2. She does have ischemic but stable appearing EKG changes as well without ST elevation. Her echocardiogram reveals inferior wall motion abnormality, ejection fraction of 35% -40%, and valvular heart disease with moderate MR, moderate to severe TR, moderate AR and pulmonary hypertension with values in the 60s. she was also found to have elevated creatinine and also is anemic with a reported history of NSAID use and a reported history of dark stool, although her fecal occult blood testing here is negative. She did receive 1 unit of packed red blood cells and was seen by Dr. Cordero. 1. Coronary disease with non ST elevation MO: no significant arrhythmia. She is only mildly volume overloaded but not in significant heart failure. She denies angina. Given her anemia and possible GI bleed as well as renal insufficiency, we have elected to medically manage coronary disease. She did receive approximately 20 hours of IV heparin, but we stopped this when her hematocrit dropped. She is now on aspirin, high-dose statin, and low-dose beta- ena. I explained to the patient that we are going to medically manage her and not perform angiogram, and this is her preferred approach as well. Could consider nuclear stress testing for further risk stratification if her renal function improves. 2. Syncope: this was what brought her to the hospital. She presented with bradycardia and hypotension, concerning for either a manifestation of inferior cardiac ischemia verses a manifestation of GI bleeding and a resultant type 2 myocardial infarction. Blood pressure is normalized to slightly high now. No arrhythmia on telemetry. 3. Cardiomyopathy: This appears to be ischemic in etiology. She is mildly volume overloaded. Will start low-dose oral Lasix with careful attention to her renal function. Consider addition of an JENNY-inhibitor once we understand her baseline renal function. 4. Renal insufficiency: Unknown baseline. Her creatinine has improved with IV fluid resuscitation. Consider JENNY-inhibitor as an outpatient as detailed above. 5. Anemia with possible GI bleed: Appreciate Dr. Cordero consultation. She is on proton pump inhibitor. She had been taking nonsteroidals on a regular basis as an outpatient we have counseled her that she needs to stop this. She did receive 1 unit of packed red blood cells with stabilization of her hemoglobin. Stool occult blood testing has been negative. No endoscopy at this point, especially given her non ST elevation MO. 6. hypertension: Fairly well controlled. Continue beta-ena. Add low-dose Lasix. 7. Diabetes: Per Internal Medicine. 07/25/16 09:27 Subjective: she denies angina. She says she is not short of breath, but the nursing staff and physical therapy staff says that she does appear dyspneic with exertion. She denies lightheadedness. She reports having had a dark stool at home and then another dark stool last night. Objective: Vital Signs (8 Hrs) Temp Pulse Resp BP Pulse Ox 07/25/16 08:00 36.4 C 50 L 16 131/60 H 95 07/25/16 04:00 36.5 C 60 16 111/39 L 94 Intake/Output (24 Hrs) 07/24/16 07/25/16 07/26/16 05:59 05:59 05:59 Intake Total 1659 Output Total 700 Balance 959 Intake: Oral (ml) 400 IV Infused (ml) 1106 Heparin/Dextrose 500 ml @ 175 Per Protocol IV CONT JEFF Rx#:[id number] Ns 1,000 ml @ 75 mls/hr 900 IV CONT JEFF Rx#: [id number] Pantoprazole Sodium 80 mg 31 In Ns 100 ml @ 10 mls/hr IV Q10H JEFF Rx#: [id number] Packed Red Blood Cells ( 153 ml) Output: Urine (ml) 700 Toilet 700 Other: Intake Quantity Yes Sufficient Number of Voids Toilet 2 no acute distress. Standing whole working with physical therapy. JVP below clavicle with the patient standing up. Regular rate and rhythm with 2 /6 holosystolic murmur at the left lower sternal border and apex. No gallop or rub. Lungs decreased breath sounds and minimal rales at both bases no wheezes or rhonchi Extremities 1+ pitting edema bilateral ankles Result Diagrams: 07/25/16 05:20 07/25/16 05:20 Telemetry: Sinus rhythm with occasional PVCs ICD10 Worksheet Patient Problems: Problems Problem Status Onset Syncope Acute Bradycardia Acute Elevated troponin Acute
[2016-07-25] MEDS: FUROSEMIDE 20 MG TAB PO SCH (10:06)
[2016-07-25 10:34] LABS: % SATURATION 18 % (20-55); TOTAL IRON BINDING CAPACITY 278 ug/dL (260-490)
[2016-07-25 11:01] LABS: FERRITIN - BCH 21.1 ng/mL (6.2-264.0)
--- NOTE | 2016-07-25 12:27 | SOAPPROG ---
SOAP Progress Note Assessment/Plan: Assessment: ? GI Bleed. No signs or symptoms of bleeding. No melena while in the hospital and Hct stable. Plan: 1. Advance diet to cardiac diet 2. D/C IV pantoprazole and switch to PO pantoprazole 40 mg BID 3. When cleared from cardiac standpoint can schedule for EGD 4. Will sign off. If any changes or signs of bleeding please call, others=restrepo we can follow up with her as an outpatient 07/25/16 12:23 Subjective: CC: [facility], ? Melena and anemia Patient has had two BM's in the hospital with melena. Objective: Vital Signs Temp Pulse Resp BP Pulse Ox 36.4 C 50 L 16 131/60 H 95 07/25/16 08:00 07/25/16 08:00 07/25/16 08:00 07/25/16 08:00 07/25/16 08:00 Laboratory Results 07/25/16 05:20 07/25/16 05:20 07/24/16 07/25/16 07/26/16 05:59 05:59 05:59 Intake Total 1659 Output Total 700 200 Balance 959 -200 PT 14.0 SEC (12.0-15.0) 07/23/16 Unknown INR 1.09 (0.83-1.16) 07/23/16 Unknown Generic Name Dose Route Start Last Admin Trade Name Freq PRN Reason Stop Dose Admin Acetaminophen 650 mg 07/23/16 14:15 07/24/16 17:45 Tylenol PO 01/19/17 14:14 325 mg Q4HRS PRN Administration Pain, Mild/Fever, Can Take PO Alteplase, Recombinant 2 mg 07/24/16 11:37 Cathflo Activase IVP 01/20/17 11:36 PRN PRN Per PICC line policy Aspirin 81 mg 07/24/16 09:00 07/25/16 08:53 Aspirin PO 01/20/17 08:59 81 mg DAILY JEFF Administration Atorvastatin Calcium 80 mg 07/24/16 09:00 07/25/16 08:53 Lipitor PO 01/20/17 08:59 80 mg DAILY JEFF Administration Dextrose 25 gm 07/23/16 14:22 Dextrose 50% Syringe IVP 01/19/17 14:21 PRN PRN Hypoglycemia Furosemide 20 mg 07/25/16 09:45 07/25/16 10:06 Lasix PO 01/21/17 09:44 20 mg DAILY JEFF Administration Hydrocortisone 1 bruno 07/23/16 16:14 Hydrocortisone 2.5% TP 01/19/17 16:13 BID PRN IRRITATION Sodium Chloride 1,000 mls @ 75 mls/hr 07/23/16 23:45 07/23/16 23:00 Ns IV 01/19/17 23:44 1,000 mls CONT JEFF Administration Insulin Human Lispro 0 unit 07/23/16 18:00 07/25/16 12:23 Humalog Lispro SC 01/19/17 17:[address] [facility] Administration Protocol Levothyroxine Sodium 75 mcg 07/24/16 06:00 07/25/16 08:53 Synthroid PO 01/20/17 05:59 75 mcg DAILY@06 JEFF Administration Metoprolol Tartrate 12.5 mg 07/23/16 16:56 07/25/16 09:57 Lopressor PO 01/19/17 16:[address] [facility] Ondansetron HCl 4 mg 07/23/16 14:15 Zofran IVP 01/19/17 14:14 Q4HRS PRN Nausea/Vomiting, Can't Take PO Ondansetron HCl 4 mg 07/23/16 14:15 Zofran Odt PO 01/19/17 14:14 Q4HRS PRN Nausea/Vomiting, Use 1st Pantoprazole Sodium 40 mg 07/24/16 09:00 07/24/16 07:14 Protonix PO 01/20/17 08:[address] [facility] Administration Pantoprazole Sodium 40 mg 07/25/16 21:00 Protonix PO 01/21/17 20:[address] [facility] Discontinued Medications Generic Name Dose Route Start Last Admin Trade Name Freq PRN Reason Stop Dose Admin Aspirin 81 mg 07/23/16 16:14 07/23/16 23:55 Aspirin PO 01/19/17 16:[address] [facility] Aspirin 325 mg 07/23/16 16:21 07/23/16 16:26 Aspirin PO 07/23/16 16:22 325 mg ONCE ONE Administration Heparin Sodium (Porcine) 5,000 unit 07/23/16 22:00 Heparin Sc Injection SC 01/19/17 21:59 Q8 JEFF Heparin Sodium (Porcine) 0 unit 07/23/16 16:53 07/23/16 23:21 Heparin Injection IVP 07/23/16 16:54 5,000 units ONCE ONE Administration Protocol Heparin Sodium (Porcine) 0 unit 07/23/16 16:53 Heparin Injection IVP 01/19/17 16:52 PRN PRN Bolus per protocol Protocol Sodium Chloride 500 mls @ 0 mls/hr 07/23/16 10:51 07/23/16 10:35 Ns IV 07/23/16 10:52 500 mls EDNOW ONE Administration Wide Open Heparin Sodium (Porcine) 500 mls @ 0 mls/hr 07/23/16 17:00 07/23/16 23:20 Heparin 50 Units/Ml (Premix) IV 01/19/17 16:59 500 mls CONT JEFF Administration Protocol Per Protocol Sodium Chloride 1,000 mls @ 50 mls/hr 07/23/16 18:30 07/24/16 05:30 Ns IV 07/24/16 14:29 Not Given CONT JEFF Pantoprazole Sodium 80 mg/ 100 mls @ 200 mls/hr 07/24/16 11:32 07/24/16 15:38 Sodium Chloride IV 07/24/16 12:01 100 mls ONCE ONE Administration Pantoprazole Sodium 80 mg/ 100 mls @ 10 mls/hr 07/24/16 22:00 07/25/16 08:52 Sodium Chloride IV 01/20/17 21:59 100 mls Q10H JEFF Administration Pantoprazole Sodium 80 mg/ 100 mls @ 200 mls/hr 07/24/16 16:00 07/24/16 17:13 Sodium Chloride IV 07/24/16 16:29 Not Given ONCE ONE Physical Exam - Physical Exam General Appearance: alert, no apparent distress Respiratory: chest non-tender, lungs clear, normal breath sounds Cardiac/Chest: regular rate, rhythm Abdomen: normal bowel sounds, non-tender, soft Skin: normal color, warm/dry Neuro/Psych: alert, normal mood/affect ICD10 Worksheet Patient Problems: Problems Problem Status Onset Bradycardia Acute Elevated troponin Acute Syncope Acute chronic disease [facility]/transitional care Acute
--- NOTE | 2016-07-25 13:23 | HOSPPROG ---
Hospitalist Progress Note Assessment/Plan: 81 yo diabetic female with h/o CAD s/p CABG in 1998 - Presented with syncope, hypotension and bradycardia. #NSTEMI (trop tredning down) -continue medical management -beta ena currently on hold due to bradycardia. resume once tolerated -continue to hold off on cardiac catheterization at this time #acute anemia concerning for acute blood loss/upper gi bleed (resolving) s/p 1 unit of prbcs -gi consult appreciated -dc iv protonix -start bid protonix -dc nsaids #Syncope likely due to NSTEMI with hypotension and bradycardia vs anemia vs doubt PE given neg leg dopplers GERARDO (improving)- Unclear what her baseline is. Suspect pre-renal vs NSAIDS vs ATN in setting of hypotension and ME. -avoid nephrotoxins -trend creatinine -avoid nsaids H/O HF - Has h/o diastolic failure, EF now 30-35% with new hypokinesis. No e/o overt failure though LE edema and mild JVD noted. -closely monitor volume status, resume Lasix as indicated -start lauren soon LE edema - may be a venous stasis component. -LE duplex as above DM - Hyperglycemic ~200's on arrival. Per the med rec, she is not on oral hypoglycemics. -SSI for glycemic control, up-titrate as indicated. Cognitive changes - inappropriate laughing, poor memory. Unclear if she has some baseline dementia. -CT head now -speech / full cog eval requested DVT PPLX - start lmwh Code status - DNR. Subjective: walking with some shortness of breath. tolerating liq diet. no blood stools. leg edema is worse. no chest pain Objective: Vital Signs Temp Pulse Resp BP Pulse Ox 36.4 C 50 L 16 131/60 H 95 07/25/16 08:00 07/25/16 08:00 07/25/16 08:00 07/25/16 08:00 07/25/16 08:00 Laboratory Results 07/25/16 05:20 07/25/16 05:20 07/24/16 07/25/16 07/26/16 05:59 05:59 05:59 Intake Total 1659 Output Total 700 200 Balance 959 -200 PT 14.0 SEC (12.0-15.0) 07/23/16 Unknown INR 1.09 (0.83-1.16) 07/23/16 Unknown - Physical Exam Constitutional: no apparent distress, appears nourished, not in pain Cardiovascular: regular rate and rhythym, no murmur, rub, or gallop Respiratory: no respiratory distress, no rales or rhonchi, clear to auscultation Gastrointestinal: normoactive bowel sounds, soft, non-tender abdomen, no palpable masses Neurologic: CN II-XII Intact, No facial droop ICD10 Worksheet Patient Problems: Problems Problem Status Onset chronic disease mgmt/transitional care Acute Syncope Acute Bradycardia Acute Elevated troponin Acute
[2016-07-25] MEDS: NS 1,000 ML IV SCH (18:31)
[2016-07-25] MEDS: PANTOPRAZOLE SODIUM 40 MG TAB PO SCH (20:47)
[2016-07-26] MEDS: LEVOTHYROXINE 75 MCG TAB PO SCH (06:09)
[2016-07-26 06:20] LABS: % IMMATURE GRANULYOCYTES 0.3 % (0.0-1.1); ABSOLUTE IMMATURE GRANULOCYTES 0.02 10^3/uL (0.00-0.10); ADD DIFF? NO; ADD MORPH? NO; ADD SCAN? NO; ATYPICAL LYMPHOCYTE FLAG 10 (0-99); FRAGMENT RBC FLAG 0 (0-99); HEMATOCRIT 27.9 % (38.0-47.0); HEMOGLOBIN 8.7 g/dL (12.6-16.3); LEFT SHIFT FLG 0 (0-99); LIPEMIA HEMOLYSIS FLAG 80 (0-99); MEAN CELL HEMOGLOBIN 28.3 pg (27.9-34.1); MEAN CELL HEMOGLOBIN CONCENTR. 31.2 g/dL (32.4-36.7); MEAN CELL VOLUME 90.9 fL (81.5-99.8); MEAN PLATELET VOLUME 11.7 fL (8.7-11.7); PLATELET CLUMPS FLAG 0 (0-99); PLATELET COUNT 138 10^3/uL (150-400); RED BLOOD CELL COUNT 3.07 10^6/uL (4.18-5.33); RED CELL DISTRIBUTION WIDTH 14.6 % (11.5-15.2)
[2016-07-26 07:13] LABS: ANION GAP 8 mEq/L (8-16); CALCIUM 8.6 mg/dL (8.5-10.4); CARBON DIOXIDE 17 mEq/l (22-31); CHLORIDE 119 mEq/L (97-110); CREATININE 1.6 mg/dL (0.6-1.0); GLOMERULAR FILTRATION RATE 31; GLUCOSE 154 mg/dL (70-100); POTASSIUM 4.4 mEq/L (3.5-5.2); SODIUM 144 mEq/L (134-144)
[2016-07-26] MEDS: NS 1,000 ML IV SCH (08:10)
--- NOTE | 2016-07-26 09:57 | PDCARPN ---
Cardiology Progress Note Assessment/Plan: Assessment: Assessment/plan: 81-year-old female with history of coronary disease. She had a CABG in 1979, her coronary anatomy is not known at this time. She also has a history of diabetes and hypertension. She was admitted on July 23 after syncopal episode that was witnessed at her home. She was found to have a positive troponin, peak was 5.2. She does have ischemic but stable appearing EKG changes as well without ST elevation. Her echocardiogram reveals inferior wall motion abnormality, ejection fraction of 35% -40%, and valvular heart disease with moderate MR, moderate to severe TR, moderate AR and pulmonary hypertension with values in the 60s. she was also found to have elevated creatinine and also is anemic with a reported history of NSAID use and a reported history of dark stool, although her fecal occult blood testing here is negative. She did receive 1 unit of packed red blood cells yesterday and was seen by Dr. Cordero. Plan for EGD when stable. Is to see Dr Cordero as a out- patient. 1. Coronary disease with non ST elevation CO: no significant arrhythmia. She was mildly volume overloaded on admit but not in significant heart failure. She denies angina. Given her anemia and possible GI bleed as well as renal insufficiency, we have elected to medically manage coronary disease. She did receive approximately 20 hours of IV heparin, but we stopped this when her hematocrit dropped. She is now on aspirin, high-dose statin, and low-dose beta- ena. Dr Carvajal explained to the patient that we are going to medically manage her and not perform angiogram, and this is her preferred approach as well. Could consider nuclear stress testing for further risk stratification if her renal function improves, however with the desire for no interventions, her medical treatment would not change. 2. Syncope: this was what brought her to the hospital. She presented with bradycardia and hypotension, concerning for either a manifestation of inferior cardiac ischemia verses a manifestation of GI bleeding and a resultant type 2 myocardial infarction. Blood pressure is normalized to slightly high now. No arrhythmia on telemetry. 3. Cardiomyopathy: This appears to be ischemic in etiology. She appears euvolemic this morning. She is on low-dose oral Lasix with careful attention to her renal function. Today Cr 1.6. Consider addition of an JENNY-inhibitor as out-patient once we understand her baseline renal function. 4. Renal insufficiency: Unknown baseline. Her creatinine has improved with IV fluid resuscitation. Consider JENNY-inhibitor as an outpatient as detailed above. Renal functions will need to be monitored closely as an out-patient. 5. Anemia with possible GI bleed: Appreciate Dr. Cordero consultation. She is on proton pump inhibitor. She had been taking nonsteroidals on a regular basis as an outpatient we have counseled her that she needs to stop this. She did receive 1 unit of packed red blood cells with stabilization of her hemoglobin. Stool occult blood testing has been negative. No endoscopy at this point, especially given her non ST elevation CO. EGD can be done as a outpatient. 6. hypertension: Fairly well controlled. Continue beta-ena, and low-dose Lasix. 7. Diabetes: Per Internal Medicine. Plan: For NSTEMI, medical management, she desires no procedures. Monitor Renal functions closely on low-dose Lasix. 07/26/16 09:43 Subjective: I have no chest pain or SOB. I feel good this morning. Not ready for breakfast yet. Reviewed/Discussed With: hospitalist, multidisciplinary team Objective: Vital Signs (8 Hrs) Temp Pulse Resp BP Pulse Ox 07/26/16 08:11 156/74 H 07/26/16 07:13 36.3 C 64 18 164/91 H 93 07/26/16 03:49 36.3 C 86 19 147/72 H 92 Intake/Output (24 Hrs) 07/25/16 07/26/16 07/27/16 05:59 05:59 05:59 Intake Total 1659 1416 Output Total 700 1200 225 Balance 959 216 -225 Intake: Oral (ml) 400 400 IV Infused (ml) 1106 1016 Heparin/Dextrose 500 ml @ 175 Per Protocol IV CONT JEFF Rx#:[id number] Ns 1,000 ml @ 75 mls/hr 900 1016 IV CONT JEFF Rx#: [id number] Pantoprazole Sodium 80 mg 31 In Ns 100 ml @ 10 mls/hr IV Q10H JEFF Rx#: [id number] Packed Red Blood Cells ( 153 ml) Output: Urine (ml) 700 1200 225 Toilet 700 1200 225 Other: Intake Quantity Yes Sufficient Number of Voids Toilet 2 1 Result Diagrams: 07/26/16 06:05 07/26/16 06:05 - Physical Exam Constitutional: no apparent distress Cardiovascular: regular rate and rhythm, no murmurs Respiratory: clear to auscultate bilat, no crackles, no wheezes Skin: warm, no edema Neurologic: other (alert. Answers questions appropriately.) Psychiatric: cooperative, interactive ICD10 Worksheet Patient Problems: Problems Problem Status Onset Bradycardia Acute Elevated troponin Acute Syncope Acute chronic disease mgmt/transitional care Acute
[2016-07-26] MEDS: FUROSEMIDE 20 MG TAB PO SCH (10:14)
[2016-07-26] MEDS: PANTOPRAZOLE SODIUM 40 MG TAB PO SCH ×2 (10:14→21:00)
[2016-07-26] MEDS: ATORVASTATIN CALCIUM 40 MG TAB PO SCH (10:14)
[2016-07-26] MEDS: INSULIN LISPRO 100 UNIT/ML SC SCH ×3 (10:15→18:22)
[2016-07-26] MEDS: ASPIRIN 81 MG CHEWABLE TAB PO SCH (10:15)
[2016-07-26] MEDS: ENOXAPARIN 40 MG/0.4 ML SYR SC SCH (10:15)
--- NOTE | 2016-07-26 10:31 | HOSPPROG ---
Hospitalist Progress Note Assessment/Plan: 81 yo diabetic female with h/o CAD s/p CABG in 1998 - Presented with syncope, hypotension and bradycardia. #NSTEMI (trop tredning down) -continue medical management resume metoprolol -no cardiac catheterization at this time #acute anemia concerning for acute blood loss/upper gi bleed (resolving) s/p 1 unit of prbcs -gi consult appreciated -dc iv protonix -contbid protonix -dc nsaids #Dementia -pt lives independently and does not seem safe for dc. will discuss options with the patients daughter and case management #Syncope likely due to NSTEMI with hypotension and bradycardia vs anemia vs doubt PE given neg leg dopplers GERARDO (improving)- Unclear what her baseline is. Suspect pre-renal vs NSAIDS vs ATN in setting of hypotension and MT. -start lisinopril -cont to monitor renal function H/O HF - Has h/o diastolic failure, EF now 30-35% with new hypokinesis. No e/o overt failure though LE edema and mild JVD noted. -closely monitor volume status, resume Lasix as indicated -start lauren LE edema - may be a venous stasis component. -LE duplex as above DM - Hyperglycemic ~200's on arrival. Per the med rec, she is not on oral hypoglycemics. -SSI for glycemic control, up-titrate as indicated. DVT PPLX - continue lmwh Code status - DNR. pt is high risk Subjective: no chest pain or sob. wants to go home, but appears confused Objective: Vital Signs Temp Pulse Resp BP Pulse Ox 36.3 C 64 18 156/74 H 93 07/26/16 07:13 07/26/16 07:13 07/26/16 07:13 07/26/16 08:11 07/26/16 07:13 Laboratory Results 07/26/16 06:05 07/26/16 06:05 07/25/16 07/26/16 07/27/16 05:59 05:59 05:59 Intake Total 1659 1416 Output Total 700 1200 225 Balance 959 216 -225 PT 14.0 SEC (12.0-15.0) 07/23/16 Unknown INR 1.09 (0.83-1.16) 07/23/16 Unknown - Physical Exam Constitutional: no apparent distress, appears nourished, not in pain Ears, Nose, Mouth, Throat: moist mucous membranes, hearing normal, ears appear normal, no oral mucosal ulcers Cardiovascular: regular rate and rhythym, no murmur, rub, or gallop Respiratory: no respiratory distress, no rales or rhonchi, clear to auscultation Gastrointestinal: normoactive bowel sounds, soft, non-tender abdomen, no palpable masses Neurologic: CN II-XII Intact, other (oriented to person only), No facial droop ICD10 Worksheet Patient Problems: Problems Problem Status Onset chronic disease [facility]/transitional care Acute Syncope Acute Bradycardia Acute Elevated troponin Acute
[2016-07-26] MEDS: METOPROLOL TARTRATE 25 MG TAB PO SCH ×2 (11:11→21:00)
[2016-07-26] MEDS: ENALAPRIL MALEATE 5 MG TAB PO SCH (11:11)
[2016-07-26] MEDS: ACETAMINOPHEN 325 MG TAB PO PRN (19:13)
[2016-07-27 04:26] LABS: % IMMATURE GRANULYOCYTES 0.3 % (0.0-1.1); ABSOLUTE IMMATURE GRANULOCYTES 0.03 10^3/uL (0.00-0.10); ADD DIFF? NO; ADD MORPH? NO; ADD SCAN? NO; ATYPICAL LYMPHOCYTE FLAG 0 (0-99); FRAGMENT RBC FLAG 0 (0-99); HEMATOCRIT 31.3 % (38.0-47.0); HEMOGLOBIN 9.7 g/dL (12.6-16.3); LEFT SHIFT FLG 0 (0-99); LIPEMIA HEMOLYSIS FLAG 80 (0-99); MEAN CELL HEMOGLOBIN 28.2 pg (27.9-34.1); MEAN PLATELET VOLUME 11.6 fL (8.7-11.7); PLATELET CLUMPS FLAG 0 (0-99); PLATELET COUNT 162 10^3/uL (150-400); RED BLOOD CELL COUNT 3.44 10^6/uL (4.18-5.33); RED CELL DISTRIBUTION WIDTH 14.7 % (11.5-15.2)
[2016-07-27 04:54] LABS: ANION GAP 13 mEq/L (8-16); CARBON DIOXIDE 14 mEq/l (22-31); CHLORIDE 119 mEq/L (97-110); CREATININE 1.6 mg/dL (0.6-1.0); GLOMERULAR FILTRATION RATE 31; GLUCOSE 173 mg/dL (70-100); POTASSIUM 4.5 mEq/L (3.5-5.2); SODIUM 146 mEq/L (134-144)
[2016-07-27] MEDS: LEVOTHYROXINE 75 MCG TAB PO SCH (05:58)
--- NOTE | 2016-07-27 09:38 | HOSPPROG ---
Hospitalist Progress Note Assessment/Plan: 81 yo diabetic female with h/o CAD s/p CABG in 1998 - Presented with syncope, hypotension and bradycardia. #NSTEMI (trop tredning down) -continue medical management increase metoprolol to 25mg bid -no cardiac catheterization at this time #acute anemia concerning for acute blood loss/upper gi bleed (resolving) s/p 1 unit of prbcs -gi consult appreciated -dc iv protonix -cont bid protonix -dc nsaids #Dementia -pt lives independently and does not seem safe for dc. She does demonstrate decisional capacity. She was able to express to me the risk of if she were to go home and not do well. #Syncope likely due to NSTEMI with hypotension and bradycardia vs anemia vs doubt PE given neg leg dopplers GERARDO (improving)- Unclear what her baseline is. Suspect pre-renal vs NSAIDS vs ATN in setting of hypotension and AL. -continue lisinopril -cont to monitor renal function H/O HF - Has h/o diastolic failure, EF now 30-35% with new hypokinesis. No e/o overt failure though LE edema and mild JVD noted. -closely monitor volume status, resume Lasix as indicated -start lauren LE edema - may be a venous stasis component. -LE duplex as above DM - Hyperglycemic ~200's on arrival. Per the med rec, she is not on oral hypoglycemics. -SSI for glycemic control, up-titrate as indicated. DVT PPLX - continue lmwh Code status - DNR. pt is high risk pt seems too weak to dc home today. Will continue to encourage SNF/rehab Subjective: wants to go home. rn reports increased weakness today. no chest pain or sob Objective: Vital Signs Temp Pulse Resp BP Pulse Ox 36.7 C 65 20 173/67 H 95 07/27/16 09:00 07/27/16 09:00 07/27/16 09:00 07/27/16 09:00 07/27/16 09:00 Laboratory Results 07/27/16 04:00 07/27/16 04:00 07/26/16 07/27/16 07/28/16 05:59 05:59 05:59 Intake Total 1416 600 Output Total 1200 1275 150 Balance 216 -675 -150 PT 14.0 SEC (12.0-15.0) 07/23/16 Unknown INR 1.09 (0.83-1.16) 07/23/16 Unknown - Physical Exam Constitutional: no apparent distress, appears nourished, not in pain Cardiovascular: regular rate and rhythym, no murmur, rub, or gallop, edema ( right leg) Respiratory: no respiratory distress, no rales or rhonchi, clear to auscultation , No inspiratory crackles Gastrointestinal: normoactive bowel sounds, soft, non-tender abdomen, no palpable masses, No guarding, No rebound Musculoskeletal: full muscle strength, no muscle tenderness, normal joint ROM ICD10 Worksheet Patient Problems: Problems Problem Status Onset chronic disease mgmt/transitional care Acute Syncope Acute Bradycardia Acute Elevated troponin Acute
[2016-07-27] MEDS: METOPROLOL TARTRATE 25 MG TAB PO SCH ×3 (09:52→20:49)
[2016-07-27] MEDS: ATORVASTATIN CALCIUM 40 MG TAB PO SCH (09:54)
[2016-07-27] MEDS: INSULIN LISPRO 100 UNIT/ML SC SCH ×3 (09:55→17:25)
[2016-07-27] MEDS: FUROSEMIDE 20 MG TAB PO SCH (09:55)
[2016-07-27] MEDS: ENALAPRIL MALEATE 5 MG TAB PO SCH (09:55)
[2016-07-27] MEDS: PANTOPRAZOLE SODIUM 40 MG TAB PO SCH ×2 (09:55→20:49)
[2016-07-27] MEDS: ASPIRIN 81 MG CHEWABLE TAB PO SCH (09:55)
[2016-07-27] MEDS: ENOXAPARIN 40 MG/0.4 ML SYR SC SCH (09:56)
[2016-07-27] MEDS: ACETAMINOPHEN 325 MG TAB PO PRN (10:16)
--- NOTE | 2016-07-27 13:28 | PDCARPN ---
Cardiology Progress Note Chief Complaint: Mrs. Worley is a pleasant 81 year old female admitted with NSTEMI with peak troponin of approximately 5, medically managed with Ischmic CM with LVEF 35% with moderate MR and AI and severe TR. She was found to be anemic with concern for GI Bleeding, transfused 1 unit PrBC. She remains hemodyanamcially stable. No chest pain. No events on tele, NSR to sinus josé antonio. Assessment/Plan: Assessment: 1. NSTEMI 2. Ischemic CM LVEF 35% 3. Moderate MR and AI 4. Severe TR 5. GI bleeding with transfusion of one unit PRBC 6. Dementia Plan: -Medical Management of NSTEMI -Atorvastatin 80 mg daily -Aspirin 81 mg daily -Metoprolol Tartrate 25 mg bid -Enalapril 5 mg once daily -Lasix 20 mg daily -Plan for transfer to SNF tomorrow. 07/27/16 13:29 07/27/16 13:33 Reviewed/Discussed With: hospitalist Time Spent With Patient: 15 min Objective: Vital Signs (8 Hrs) Temp Pulse Resp BP Pulse Ox 07/27/16 11:22 36.8 C 55 L 13 105/64 97 07/27/16 09:10 92 30 H 93 07/27/16 09:00 36.7 C 65 20 173/67 H 95 Intake/Output (24 Hrs) 07/26/16 07/27/16 07/28/16 05:59 05:59 05:59 Intake Total 1416 600 Output Total 1200 1275 450 Balance 216 -675 -450 Intake: Oral (ml) 400 600 IV Infused (ml) 1016 Ns 1,000 ml @ 75 mls/hr 1016 IV CONT JEFF Rx#: [id number] Output: Urine (ml) 1200 1275 450 Bedside Commode 450 Toilet 1200 1275 Other: Weight 190 kg Number of Voids Toilet 1 1 Result Diagrams: 07/27/16 04:00 07/27/16 04:00 - Physical Exam Constitutional: no apparent distress Cardiovascular: regular rate and rhythm, no rubs, no gallops, systolic murmur Respiratory: clear to auscultate bilat Skin: no rashes Musculoskeletal: no muscular tenderness Neurologic: CN II-XII grossly intact ICD10 Worksheet Patient Problems: Problems Problem Status Onset Bradycardia Acute Elevated troponin Acute Syncope Acute chronic disease mgmt/transitional care Acute
[2016-07-28] MEDS: LEVOTHYROXINE 75 MCG TAB PO SCH (05:52)
[2016-07-28 07:07] LABS: % IMMATURE GRANULYOCYTES 0.5 % (0.0-1.1); ABSOLUTE IMMATURE GRANULOCYTES 0.04 10^3/uL (0.00-0.10); ADD DIFF? NO; ADD MORPH? NO; ADD SCAN? NO; ATYPICAL LYMPHOCYTE FLAG 0 (0-99); FRAGMENT RBC FLAG 0 (0-99); HEMATOCRIT 28.4 % (38.0-47.0); HEMOGLOBIN 8.9 g/dL (12.6-16.3); LEFT SHIFT FLG 0 (0-99); LIPEMIA HEMOLYSIS FLAG 80 (0-99); MEAN CELL HEMOGLOBIN 27.8 pg (27.9-34.1); MEAN CELL HEMOGLOBIN CONCENTR. 31.3 g/dL (32.4-36.7); MEAN CELL VOLUME 88.8 fL (81.5-99.8); PLATELET CLUMPS FLAG 10 (0-99); PLATELET COUNT 131 10^3/uL (150-400); RED CELL DISTRIBUTION WIDTH 14.5 % (11.5-15.2)
[2016-07-28 08:27] VITALS: BP 166/71; PULSE 73; RESP 16; TEMP 98.1; O2SAT 94
[2016-07-28] MEDS: PANTOPRAZOLE SODIUM 40 MG TAB PO SCH (09:36)
[2016-07-28] MEDS: FUROSEMIDE 20 MG TAB PO SCH (09:36)
[2016-07-28] MEDS: ATORVASTATIN CALCIUM 40 MG TAB PO SCH (09:36)
[2016-07-28] MEDS: ASPIRIN 81 MG CHEWABLE TAB PO SCH (09:36)
[2016-07-28] MEDS: ENALAPRIL MALEATE 5 MG TAB PO SCH (09:36)
[2016-07-28] MEDS: METOPROLOL TARTRATE 25 MG TAB PO SCH (09:36)
[2016-07-28] MEDS: ENOXAPARIN 40 MG/0.4 ML SYR SC SCH (09:37)
[2016-07-28] MEDS: INSULIN LISPRO 100 UNIT/ML SC SCH (09:39)
--- NOTE | 2016-07-28 10:37 | PDIAF ---
- Diagnosis Diagnosis: NSTEMI/Systolic heart failure Code Status: Do Not Resuscitate - Medication Management Discharge Medications: Medications to Continue on Transfer Acetaminophen [Tylenol ES 500 mg (*)] 1,000 mg PO DAILY 07/23/16 [Last Taken Unknown] Acetaminophen [Tylenol ES 500 mg (*)] 500 mg PO DAILY@1800 07/23/16 [Last Taken Unknown] Aspirin [Aspirin 81mg (*)] 81 mg PO DAILY 07/23/16 [Last Taken Unknown] Atorvastatin Calcium [Lipitor 40 mg (*)] 80 mg PO DAILY 07/23/16 [Last Taken Unknown] Cholecalciferol Vit D3 [Vitamin D3 (*)] 2,000 units PO DAILY 07/23/16 [Last Taken Unknown] Cyanocobalamin [Vitamin B12 (*)] 2,000 mcg PO DAILY 07/23/16 [Last Taken Unknown ] Herbals/Supplements -Info Only 1 ea PO DAILY 07/23/16 [Last Taken Unknown] Hydrocortisone 2.5% [Hydrocortisone 2.5% cream (*)] 1 bruno TP BID PRN 07/23/16 [ Last Taken Unknown] Levothyroxine Sodium 75 mcg PO DAILY@06 07/23/16 [Last Taken Unknown] Acetaminophen [Tylenol 325mg (*)] 650 mg PO Q4HRS PRN #0 tab 07/28/16 [Last Taken Unknown] Enalapril Maleate [Vasotec 5 MG (*)] 5 mg PO DAILY #0 tab 07/28/16 [Last Taken Unknown] Furosemide [Lasix 20 MG (*)] 20 mg PO DAILY #0 tab 07/28/16 [Last Taken Unknown] Insulin Lispro [humALOG LISPRO 100 units/ml (*)] 0 unit SC TIDMEAL #0 unit 07/28 [Last Taken Unknown] Metoprolol Tartrate [Lopressor 25 mg (*)] 25 mg PO BID #0 tab 07/28/16 [Last Taken Unknown] Pantoprazole Sodium [Protonix 40mg (*)] 40 mg PO BID #0 tab 07/28/16 [Last Taken Unknown] Discharge Medications: Refer to the Discharge Home Medication list for PRN reason. - Orders Services needed: Registered Nurse, Physical Therapy, Occupational Therapy Diet Recommendation: cardiac -low fat low salt Diet Texture: Regular Texture Diet Additional: check glucose ac/hs - Follow Up Care Current Providers and Referrals: Patient,NotPresent [Unknown] - As per Instructions
--- NOTE | 2016-07-28 10:59 | GDS ---
[f rep st] DISCHARGE SUMMARY DISCHARGE DIAGNOSES: 1. Qvc-[id number] elevation myocardial infarction. 2. Acute anemia concerning for acute blood loss from upper gastrointestinal bleed, status post 1 unit packed red blood cells. 3. Dementia. 4. Syncope, most likely due to [id number] elevation myocardial infarction. 5. Improved acute kidney injury. 6. History of chronic diastolic heart failure with acute systolic heart failure , with ejection fraction of 30% to 35% with new hypokinesis. 7. Diabetes mellitus. 8. Moderate mitral regurgitation and aortic insufficiency with severe tricuspid regurgitation. CONSULTANTS: [facility], ESTRADA Rodriguez of [facility]. HOSPITAL COURSE AND STAY BY PROBLEM: 1. NSTEMI: The patient presented to the hospital after having a syncopal episode and then was noted to have a significant elevation of her troponin up to a peak of 5.2 on 07/24/2016. Cardiology was consulted, who opted for medical management. She was on heparin for 24 hours, but was ultimately stopped when she dropped her hemoglobin from 9.2 down to 7.8 on hospital day # 1. She did receive a unit of packed red blood cells. She was started on b.i.d. Protonix. GI was consulted, who opted to defer catheterization given the fact that she recently had an PR and seemed to be hemodynamically stable. She was placed on b.i.d. Protonix and was instructed to stop using NSAIDs. 2. Acute kidney injury: The patient presented with a creatinine of 1.9, which has been stable at 1.6 for the past few days. Nephrotoxins should be avoided. 3. Acute systolic heart failure with history of diastolic heart failure: It was thought that new systolic heart failure is likely a result of her recent cardiac event. She was placed on lisinopril, which she seems to be tolerating well. On day of discharge, she appears to be compensated from a heart failure standpoint. 4. Diabetes mellitus, not well controlled. Hemoglobin A1c is 8.3: Throughout the hospital stay, she has received correctional insulin, which she has not used much of. I was reluctant to start her on metformin given her elevated creatinine. I recommend that her blood sugars continue to be monitored at the senior care facility, and if she continues to have blood sugars out of range , it might be reasonable to start her on low-dose glargine. For now, correctional insulin can be continued. PHYSICAL EXAM: VITAL SIGNS: On day of discharge, blood pressure 166/71, pulse 73, respiratory rate 16, O2 saturation 94% on room air. Temperature afebrile. GENERAL: No acute distress. HEART: S1, S2. LUNGS: Clear. ABDOMEN: Soft. EXTREMITIES: No edema. DISCHARGE MEDICATIONS: Please refer to discharge medication reconciliation in [facility] for details. DISCHARGE INSTRUCTIONS: The patient will be transferred to a senior care facility where once again she should continue to have her blood sugars monitored. She should be closely monitored for signs of worsening of her chronic systolic and diastolic heart failure. She should follow up with Cardiology as directed. She should be maintained on Protonix 40 mg b.i.d. for the next 2 weeks, then transitioned down to once daily dosing. NSAIDs should be avoided. Greater than 30 minutes were spent on the discharge of this patient /[id number]/MODL MTDD
--- NOTE | 2016-07-28 11:30 | PDIAF ---
- Diagnosis Diagnosis: NSTEMI/Systolic heart failure Code Status: Do Not Resuscitate - Medication Management Discharge Medications: Medications to Continue on Transfer Acetaminophen [Tylenol ES 500 mg (*)] 1,000 mg PO DAILY 07/23/16 [Last Taken Unknown] Acetaminophen [Tylenol ES 500 mg (*)] 500 mg PO DAILY@1800 07/23/16 [Last Taken Unknown] Aspirin [Aspirin 81mg (*)] 81 mg PO DAILY 07/23/16 [Last Taken Unknown] Atorvastatin Calcium [Lipitor 40 mg (*)] 80 mg PO DAILY 07/23/16 [Last Taken Unknown] Cholecalciferol Vit D3 [Vitamin D3 (*)] 2,000 units PO DAILY 07/23/16 [Last Taken Unknown] Cyanocobalamin [Vitamin B12 (*)] 2,000 mcg PO DAILY 07/23/16 [Last Taken Unknown ] Herbals/Supplements -Info Only 1 ea PO DAILY 07/23/16 [Last Taken Unknown] Hydrocortisone 2.5% [Hydrocortisone 2.5% cream (*)] 1 bruno TP BID PRN 07/23/16 [ Last Taken Unknown] Levothyroxine Sodium 75 mcg PO DAILY@06 07/23/16 [Last Taken Unknown] Acetaminophen [Tylenol 325mg (*)] 650 mg PO Q4HRS PRN #0 tab 07/28/16 [Last Taken Unknown] Enalapril Maleate [Vasotec 5 MG (*)] 5 mg PO DAILY #0 tab 07/28/16 [Last Taken Unknown] Furosemide [Lasix 20 MG (*)] 20 mg PO DAILY #0 tab 07/28/16 [Last Taken Unknown] Insulin Lispro [humALOG LISPRO 100 units/ml (*)] 0 unit SC TIDMEAL #0 unit 07/28 [Last Taken Unknown] Metoprolol Tartrate [Lopressor 25 mg (*)] 25 mg PO BID #0 tab 07/28/16 [Last Taken Unknown] Pantoprazole Sodium [Protonix 40mg (*)] 40 mg PO BID #0 tab 07/28/16 [Last Taken Unknown] Discharge Medications: Refer to the Discharge Home Medication list for PRN reason. - Orders Services needed: Registered Nurse, Physical Therapy, Occupational Therapy Diet Recommendation: cardiac -low fat low salt Diet Texture: Regular Texture Diet Additional: check glucose ac/hs - Labs/Radiology BMP Date: 07/31/16 (NSTEMI) CBC Date: 07/31/16 (Anemia) Call or Fax Lab and Imaging Results to: [facility], - Follow Up Care Current Providers and Referrals: Patient,NotPresent [Unknown] - As per Instructions Guicho Owusu MD [Medical Doctor] - (August 01, 2016 15:30)
--- NOTE | 2016-07-28 13:39 | PDCARPN ---
Cardiology Progress Note Chief Complaint: Patient reports fatigue, but no chest pressure or pain. Assessment/Plan: Assessment: 81-year-old female with history of CAD, CABG (1979), diabetes, hypertension. Admitted for syncopal event on 07/23/2016. Echocardiogram done on 07/23 showing LV systolic reduced with basal inferior lateral inferior septal, and inferior wall hypokinesis. EF estimated at 35-40%., RV mildly dilated, reduced due. RVSP 65-70%, moderate may annular calcification, moderate MR, moderate to severe TR moderate AI, mild PI. Patient found to non ST elevated FL by troponin levels, peaking at 5.230 07/24/2016. Found to be also anemic, with concerns of GI bleed, has been transfused 1 unit of packed red blood cells and decision to medically treat her non ST elevated FL. She denies of any chest pain or shortness of breath. No malignant arrhythmias overnight. Patient's hematocrit yesterday was 31.3, today 28.4. Plan on discharging to [facility] facility. Planned: 1.NSTEMI: Denies of any chest pain or shortness of breath, troponins trending downward. Continue on aspirin, metoprolol, and atorvastatin. 2. Ischemic cardiomyopathy: EF estimated 35-40%, on beta-ena, restarted enalapril at 5 mg p.o. q.day. Low Lasix dose of 20 mg p.o. daily. Patient should be weight daily, our office should be notified if she gains more than 2 lb in a day or 5 lb in week. 3. Anemia: Concern for possible GI bleed, status post 1 unit packed red blood cell. Crit drifting down, today 28.4, concern with non ST elevated FL, would like crit better than 30. She is scheduled in our office to be seen on August 01 , will plan for her to get a repeated CBC on the prior to office visit. Continue following up with GI. 4. Valvular heart disease: Noted to have moderate MR and AI, severe TR, continue on diuretic managed as above. 5. Renal insufficiency: Repeat BMP prior to follow-up office visit. 6. Syncope: No arrhythmias noted through hospital stay, no further events. Question caused by anemia, FL, or combination both. Patient planned to be discharge today, went over with patient and her daughter plans for repeat laboratory studies, medication compliance he, and follow-up visits. 07/28/16 13:36 Subjective: Patient denies of any chest pressure, pain, orthopnea, palpitations, near- syncope, or syncopal events. 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 Dos Santos) Objective: Vital Signs (8 Hrs) Temp Pulse Resp BP Pulse Ox 07/28/16 07:30 36.7 C 73 16 166/71 H 94 Intake/Output (24 Hrs) 07/27/16 07/28/16 07/29/16 05:59 05:59 05:59 Intake Total 600 570 Output Total 1275 750 Balance -675 -180 Intake: Oral (ml) 600 550 IV Intake (ml) 20 Output: Urine (ml) 1275 750 Bedside Commode 750 Toilet 1275 Other: Weight 86.183 kg 85.5 kg Number of Voids Bedside Commode 1 Toilet 1 Number of Stools Bedside Commode 1 Result Diagrams: 07/28/16 06:55 07/27/16 04:00 - Physical Exam Constitutional: no apparent distress, obese Ears, Nose, Mouth, Throat: moist mucous membranes Cardiovascular: regular rate and rhythm, systolic murmur (2/6 along left sternal border), pulses symmetric bilat, No jugular vein distention, No carotid bruit Peripheral Pulses: 1+: dorsalis-pedis (R), dorsalis-pedis (L), 2+: carotid (R), carotid (L) Respiratory: other (Lungs diminished in bases, no rhonchi rales or wheezing noted, no accessory muscle use, no intercostal muscle retraction noted.) Gastrointestinal: normoactive bowel sounds Skin: no rashes, warm, No no edema (+1 peripheral edema bilateral lower extremities to knees.) Neurologic: AAOx3, CN II-XII grossly intact Psychiatric: cooperative, interactive ICD10 Worksheet Patient Problems: Problems Problem Status Onset Bradycardia Acute Elevated troponin Acute Syncope Acute chronic disease mgmt/transitional care Acute
== END 2016-07-28 12:55 | DRG 280 ==
LOC: EDUNIT# → F3E 13:40 → F2W 18:43 → OBSVTOIN 07-24 16:35
PROVIDERS: ADMIT Hospitalist; ATTEND Family Medicine
PROC: 02HV33Z Insertion of Infusion Device into Superior Vena Cava, Percutaneous Approach (ICD-10-PCS; 2016-07-24)
PROC: 30233N1 Transfusion of Nonautologous Red Blood Cells into Peripheral Vein, Percutaneous Approach (ICD-10-PCS; principal; 2016-07-26)
DX: I21.4 Non-ST elevation (NSTEMI) myocardial infarction (principal); I25.10 Atherosclerotic heart disease of native coronary artery without angina pectoris; I11.0 Hypertensive heart disease with heart failure; I50.21 Acute systolic (congestive) heart failure; I50.32 Chronic diastolic (congestive) heart failure; N17.9 Acute kidney failure, unspecified; R55 Syncope and collapse; I08.3 Combined rheumatic disorders of mitral, aortic and tricuspid valves; D62 Acute posthemorrhagic anemia; K92.2 Gastrointestinal hemorrhage, unspecified; E11.65 Type 2 diabetes mellitus with hyperglycemia; I50.9 Heart failure, unspecified; F03.90 Unspecified dementia, unspecified severity, without behavioral disturbance, psychotic disturbance, mood disturbance, and anxiety; W19.XXXA Unspecified fall, initial encounter; Y92.017 Garden or yard in single-family (private) house as the place of occurrence of the external cause; Z66 Do not resuscitate; Z95.1 Presence of aortocoronary bypass graft; Z86.73 Personal history of transient ischemic attack (TIA), and cerebral infarction without residual deficits
CPT/HCPCS: 82947-QW; 85520-90; 92523-GN; 97116-GP; 97161-GP; 97165-GO; 97530-GO; 97535-GO; C1751; G0378; G8978-GP-CJ; G8979-GP-CI; G8987-GO-CJ; G8988-GO-CI; G9168-GN-CM; G9169-GN-CL; J1644; J1650; J1815; P9016

== ENCOUNTER 2016-12-02 11:13 | Inpatient (IN) | payer OTHER, BC ==
--- NOTE | 2016-12-02 11:27 | CPEKG ---
Heart Rate: 59 RR Interval: 1017 QRSD Interval: 108 QT Interval: 456 QTC Interval: 452 QRS [place]: 54 T Wave [place]: -70 EKG Severity - ABNORMAL ECG - EKG Impression: BORDERLINE INFERIOR Q WAVES EKG Impression: NONSPECIFIC REPOL ABNORMALITY, DIFFUSE LEADS EKG Impression: Sinus rhythm Electronically Signed By: Fernando Biggs 02-Dec-2016 11:44:31
--- NOTE | 2016-12-02 11:43 | EDPHY ---
H & P Time Seen by Provider: 12/02/16 11:29 HPI/ROS: CHIEF COMPLAINT: Fall HISTORY OF PRESENT ILLNESS: The patient is an 81-year-old female who comes to the emergency department complaining of pain in her left ring finger and left hip after a fall this morning. She states that she slipped and was clumsy. She denies lightheadedness. She denies chest pain. She denies shortness of breath. She denies syncope. The paramedics however report to nursing staff that she had a syncopal event and in the ambulance was in atrial fibrillation and had a run of V-tach. Her EKG here shows sinus rhythm. The patient denies ever having any history of atrial fibrillation denies any palpitations. Paramedics did not leave rhythm strips here. The patient denies all of these symptoms. REVIEW OF SYSTEMS: Constitutional: denies: chills, fever, recent illness, recent injury EENTM: denies: blurred vision, double vision, nose congestion Respiratory: denies: cough, shortness of breath Cardiac: denies: chest pain, irregular heart rate, lightheadedness, palpitations Gastrointestinal/Abdominal: denies: abdominal pain, diarrhea, nausea, vomiting, blood streaked stools Genitourinary: denies: dysuria, frequency, hematuria, pain Musculoskeletal: See HPI Skin: denies: lesions, rash, jaundice, bruising Neurological: denies: headache, numbness, paresthesia, tingling, dizziness, weakness Hematologic/Lymphatic: denies: blood clots, easy bleeding, easy bruising Immunologic/allergic: denies: HIV/AIDS, transplant EXAM: GENERAL: Well-appearing, well-nourished and in no acute distress. HEAD: Atraumatic, normocephalic. EYES: Pupils equal round and reactive to light, extraocular movements intact, sclera anicteric, conjunctiva are normal. ENT: TMs normal, nares patent, oropharynx clear without exudates. Moist mucous membranes. NECK: Normal range of motion, supple without lymphadenopathy or JVD. LUNGS: Breath sounds clear to auscultation bilaterally and equal. No wheezes rales or rhonchi. HEART: Regular rate and rhythm without murmurs, rubs or gallops. ABDOMEN: Soft, nontender, normoactive bowel sounds. No guarding, no rebound. No masses appreciated. BACK: No CVA tenderness, no spinal tenderness, step-offs or deformities EXTREMITIES: Left hip pain, normal range of motion. Can ambulate with pain, left ring finger pain at the de IP joint. NEUROLOGICAL: Cranial nerves II through XII grossly intact. Normal speech, normal gait. 5/5 strength, normal movement in all extremities, normal sensation PSYCH: Normal mood, normal affect. SKIN: Warm, dry, normal turgor, no visible rashes or lesions. Source: Patient, EMS - Medical/Surgical History Hx Asthma: No Hx Chronic Respiratory Disease: No Hx Diabetes: Yes Hx Cardiac Disease: Yes Hx Renal Disease: No Hx Cirrhosis: No Hx Alcoholism: No Hx HIV/AIDS: No Hx Splenectomy or Spleen Trauma: No Other PMH: diabetes, HTN, stroke (no defecits), CHF, open heart surgery - Family History Significant Family History: No pertinent family hx - Social History Smoking Status: Former smoker Alcohol Use: Sober Drug Use: None Constitutional: Initial Vital Signs Temperature (C) 36.6 C 12/02/16 11:45 Heart Rate 60 12/02/16 11:45 Respiratory Rate 16 12/02/16 11:45 Blood Pressure 141/64 H 12/02/16 11:45 O2 Sat (%) 100 12/02/16 11:45 O2 Delivery Mode Room Air Allergies/Adverse Reactions: banana Allergy (Verified 07/24/16 17:47) Sulfa (Sulfonamide Antibiotics) Allergy (Verified 12/02/16 13:51) Swelling/neck,face,throat Home Medications: Medication Instructions Recorded Acetaminophen [Tylenol ES 500 mg 500 - 1,000 mg PO BID PRN 07/23/16 (*)] Aspirin [Aspirin 81mg (*)] 81 mg PO HS 07/23/16 Atorvastatin Calcium [Lipitor 40 80 mg PO HS 07/23/16 mg (*)] Cholecalciferol Vit D3 [Vitamin D3 2,000 units PO DAILY 07/23/16 (*)] Cyanocobalamin [Vitamin B12 (*)] 1,000 mcg PO DAILY 07/23/16 Herbals/Supplements -Info Only 1 ea PO DAILY 07/23/16 Insulin Lispro [humALOG LISPRO 100 0 unit SC TIDMEAL #0 unit 07/28/16 units/ml (*)] Enalapril Maleate [Vasotec 10 MG 10 mg PO DAILY 12/02/16 (*)] Furosemide [Lasix 40 MG (*)] 40 mg PO DAILY 12/02/16 Insulin Glargine,Hum.rec.anlog 6 unit SQ HS 12/02/16 [Lantus Solostar] Levothyroxine [Synthroid 100 mcg 100 mcg PO DAILY06 12/02/16 (*)] Metoprolol Succinate Xr [Toprol Xl 25 mg PO BID 12/02/16 25 mg (*)] Omeprazole [Prilosec 20 mg] 20 mg PO DAILY PRN 12/02/16 Medical Decision Making - Diagnostics EKG Interpretation: An EKG obtained and was read and documented in trace view. Please see trace view for full reading and report. Sinus rhythm with irregular variation, no ST changes A repeat EKG obtained and was read and documented in trace view. Please see trace view for full reading and report. Sinus rhythm, irregular, no acute ischemic changes similar to previous ED Course/Re-evaluation: 12:40 p.m. we discussed the patient's x-rays. We will place her in a splint in her arm and have paged Orthopedics for her hip. Also spoke with Adelina Staley who will admit for trauma services. We did obtain the rhythm strip sent by paramedics. She appears to have been and sinus the entire time. They do report an episode of 3 beats of V-tach but it is unclear if this is really true. 1:10 p.m. the patient became hypotensive after her splint was placed on her left arm. She has not received any pain medications. She also became bradycardic in the 40s. Her daughter states that she has been bradycardic intermittently for the last several months and they could not figure out why. The patient remains alert and oriented and states that she feels "peachy ". We will bolus with fluids and observed. Dr. Staley has consulted hospital service. 1:35 p.m. discussed the case with Dr. Luis Ellington who will consult. 1:45 p.m. I discussed the case with Dr. Micheal Fuchs who will consult requested 2nd EKG and to be placed on a monitored floor. 1:50 p.m. we had some difficulty getting her blood pressure cuff to read. We family placed it on her forearm and got 92/54. Her heart rate remains in the 50s. She is in sinus rhythm. Differential Diagnosis: Partial list of the Differential diagnosis considered include but were not limited to; fall, hip fracture, hand fracture, syncope, arrhythmia and although unlikely based on the history and physical exam, I also considered head injury, neck injury. - Data Points Laboratory Results: Laboratory Results 12/02/16 11:28 12/02/16 11:28 Medications Given: Acetaminophen (Tylenol) 1,000 mg PO Q8 JEFF Stop: 05/31/17 14:59 Last Admin: 12/03/16 16:28 Dose: Not Given Aspirin (Aspirin) 81 mg PO HS JEFF Stop: 05/31/17 20:59 Last Admin: 12/02/16 22:23 Dose: 81 mg Atorvastatin Calcium (Lipitor) 80 mg PO HS JEFF Stop: 05/31/17 20:59 Last Admin: 12/02/16 22:23 Dose: 80 mg Carvedilol (Coreg) 6.25 mg PO BIDMEAL JEFF Stop: 06/01/17 17:59 Last Admin: 12/03/16 18:18 Dose: Not Given Cholecalciferol (Vitamin D) 2,000 units PO DAILY JEFF Stop: 06/01/17 08:59 Last Admin: 12/03/16 09:24 Dose: Not Given Enalapril Maleate (Vasotec) 10 mg PO DAILY JEFF Stop: 06/01/17 08:59 Last Admin: 12/03/16 09:24 Dose: Not Given Sodium Chloride (Ns) 1,000 mls @ 100 mls/hr IV CONT JEFF Stop: 06/01/17 05:14 Last Admin: 12/03/16 05:59 Dose: 1,000 mls Insulin Glargine (Lantus Syringe) 6 units SC HS JEFF Stop: 05/31/17 20:59 Last Admin: 12/02/16 23:06 Dose: 6 units Insulin Human Lispro (Humalog Lispro) 0 unit SC TIDMEAL JEFF PRN Reason: Protocol Stop: 05/31/17 17:59 Last Admin: 12/03/16 13:09 Dose: Not Given Levothyroxine Sodium (Synthroid) 100 mcg PO DAILY06 JEFF Stop: 06/01/17 05:59 Last Admin: 12/03/16 05:34 Dose: 100 mcg Lidocaine (Lidoderm 5%) 1 ea TD Q12 JEFF Stop: 05/31/17 20:59 Last Admin: 12/03/16 10:45 Dose: 1 ea Tramadol HCl (Ultram) 50 mg PO Q6HRS PRN PRN Reason: Pain, Moderate Able to Take PO Stop: 06/01/17 09:05 Last Admin: 12/03/16 11:20 Dose: 50 mg Vitamin B Complex (Vitamin B12) 1,000 mcg PO DAILY JEFF Stop: 06/01/17 08:59 Last Admin: 12/03/16 09:24 Dose: Not Given Discontinued Medications Bupivacaine HCl/Epinephrine Bitart (Bupivacaine/Epi) Confirm Administered Dose 30 ml .ROUTE .STK-MED ONE Stop: 12/03/16 12:44 Last Admin: 12/03/16 14:00 Dose: 20 ml Fentanyl (Sublimaze) 25 mcg IVP EDNOW ONE Stop: 12/02/16 13:44 Last Admin: 12/02/16 13:44 Dose: 25 mcg Sodium Chloride (Ns) 1,000 mls @ 100 mls/hr IV CONT JEFF Stop: 12/03/16 00:59 Last Admin: 12/02/16 16:15 Dose: 1,000 mls Sodium Chloride (Ns) 500 mls @ 1,500 mls/hr IV ONCE ONE Stop: 12/03/16 05:25 Last Admin: 12/03/16 05:34 Dose: 500 mls Cefazolin Sodium/Dextrose (Ancef 1 Gm (Premix)) 50 mls @ 200 mls/hr IV ONCALL ONE PRN Reason: Protocol Stop: 12/03/16 06:36 Last Admin: 12/03/16 13:10 Dose: 50 mls Sodium Chloride (Ns) 500 mls @ 1,500 mls/hr IV ONCE ONE Stop: 12/03/16 16:41 Last Admin: 12/03/16 16:31 Dose: 500 mls Departure - Departure Disposition: [facility] Acute Clinical Impression: Fracture of femoral neck, left Qualifiers: Encounter type: initial encounter Fracture type: closed Qualified Code(s): S72.002A - Fracture of unspecified part of neck of left femur, initial encounter for closed fracture Hand fracture, left Qualifiers: Encounter type: initial encounter Fracture type: closed Qualified Code(s): S62.92XA - Unspecified fracture of left wrist and hand, initial encounter for closed fracture Condition: Fair
[2016-12-02 12:23] LABS: % IMMATURE GRANULYOCYTES 0.9 % (0.0-1.1); ADD DIFF? NO; ADD MORPH? NO; ADD SCAN? NO; ATYPICAL LYMPHOCYTE FLAG 0 (0-99); FRAGMENT RBC FLAG 30 (0-99); HEMATOCRIT 37.7 % (38.0-47.0); HEMOGLOBIN 11.9 g/dL (12.6-16.3); LEFT SHIFT FLG 10 (0-99); LIPEMIA HEMOLYSIS FLAG 80 (0-99); MEAN CELL HEMOGLOBIN 28.4 pg (27.9-34.1); MEAN CELL HEMOGLOBIN CONCENTR. 31.6 g/dL (32.4-36.7); PLATELET CLUMPS FLAG 20 (0-99); PLATELET COUNT 172 10^3/uL (150-400); RED BLOOD CELL COUNT 4.19 10^6/uL (4.18-5.33); RED CELL DISTRIBUTION WIDTH 14.8 % (11.5-15.2)
[2016-12-02 12:27] LABS: INR 1.09 (0.83-1.16)
[2016-12-02 12:28] LABS: APTT 32.1 SEC (23.0-38.0)
[2016-12-02 12:32] LABS: ANION GAP 11 mEq/L (8-16); CALCIUM 9.7 mg/dL (8.5-10.4); CARBON DIOXIDE 19 mEq/l (22-31); CHLORIDE 105 mEq/L (97-110); CREATININE 2.7 mg/dL (0.6-1.0); GLOMERULAR FILTRATION RATE 17; GLUCOSE 169 mg/dL (70-100); POTASSIUM 4.6 mEq/L (3.5-5.2); SODIUM 135 mEq/L (134-144)
[2016-12-02 12:43] LABS: TROPONIN I 0.062 ng/mL (0.000-0.034)
[2016-12-02] MEDS ORDERED: fentaNYL 100 MCG/2 ML INJ ONE (13:40)
[2016-12-02] MEDS ORDERED: fentaNYL 100 MCG/2 ML INJ IVP ONE (13:43)
--- NOTE | 2016-12-02 13:52 | CPEKG ---
Heart Rate: 50 RR Interval: 1200 P-R Interval: 148 QRSD Interval: 102 QT Interval: 476 QTC Interval: 435 P [place]: 73 QRS [place]: 66 T Wave [place]: 260 EKG Severity - ABNORMAL ECG - EKG Impression: SINUS RHYTHM EKG Impression: BORDERLINE INFERIOR Q WAVES EKG Impression: REPOL ABNRM SUGGESTS ISCHEMIA, ANT-LAT LEADS Electronically Signed By: Fernando Biggs 02-Dec-2016 13:52:42
[2016-12-02] MEDS ORDERED: ACETAMINOPHEN 325 MG TAB PO PRN (14:12)
[2016-12-02] MEDS ORDERED: ONDANSETRON 4 MG/2 ML VIAL IVP PRN (14:12)
[2016-12-02] MEDS ORDERED: D50W 25 GM/50 ML SYR IVP PRN (14:54)
[2016-12-02] MEDS ORDERED: NS 1,000 ML IV SCH (15:00)
[2016-12-02] MEDS ORDERED: oxyCODONE IR 5 MG TAB PO PRN (15:01)
--- NOTE | 2016-12-02 15:03 | ASMTCMCOM ---
CM Note CM Note Notes: Patient admitted for hip fracture and hand fracture after having a syncopal event and fall this morning. Patient's daughter, Alejandra, at bedside in the ED and lives with patient. Patient was recently admitted to [facility] in July 2016 (related to syncope, cardiac reasons) and discharged to [facility]. Anticipate patient will have PT/OT evaluations. Exact DC needs unknown at this time. CM to follow. Date Signed: 12/02/2016 03:03 PM Electronically Signed By:Marla Villarreal RN
[2016-12-02] MEDS: ACETAMINOPHEN 500 MG TAB PO SCH ×2 (15:30→22:23)
--- NOTE | 2016-12-02 16:32 | GCON ---
[f rep st] CONSULTATION HISTORY OF PRESENT ILLNESS: The patient is a pleasant 81-year-old female with history of coronary di sease, hypertension, and diabetes, who presents with apparently a mechanical fall. Her daughter has expressed concern that her right leg is weak and limits her ambulation. She then fell on her left si de. She had pain in her left hip afterwards. She has a history of bradycardia while being on a beta ena which she denies antecedent lightheadedness, presyncope, weakness, vertigo, etc. She did no t have chest pain. She did not have loss of consciousness. The emergency department notes that EMS reports possible atrial fibrillation and a run of the ventric ular tachycardia. Notably the EKG in the emergency department has shown sinus rhythm. When I speak with the patient, she is alert and complaining of pain in her left hip and hand but no pain in her ch est or difficulty breathing. She has not had urinary symptoms lately. REVIEW OF SYSTEMS: Complete 10-point review of systems conducted, negative except as noted in the HP I. PAST MEDICAL HISTORY: 1. Coronary disease, with admission here in July of this year with an N-STEMI with a peak troponin of 5.2. 2. Systolic heart failure with an EF of 30%-35%. 3. Diabetes with a hemoglobin A1c 8.3 in July of this year. 4. History of syncope. 5. Mild dementia. ALLERGIES: Bananas and sulfa. HOME MEDICATIONS: Toprol-XL 25, although her dose may be 12.5 it is not clear. Tylenol, furosemide, lispro, metoprolol as above, omeprazole, aspirin, atorvastatin, vitamin D3, B12, enalapril, Lantus 6 units, levothyroxine. SOCIAL HISTORY: No tobacco, no alcohol. was an alcoholic. He is . Lives in [facility] with her daughter. FAMILY HISTORY: Daughter is healthy at the bedside. PHYSICAL EXAM: VITAL SIGNS: Presenting vital temp 36.6, blood pressure 99/53, pulse 49-55, breathin g 16 times a minute, 98% on room air. GENERAL: Pale in no acute distress. HEENT: Sclerae anicteri c. Oropharynx clear. Mucous membranes moist. NECK: Supple without lymphadenopathy or JVD. LUNGS: Clear to auscultation bilaterally. HEART: S1, S2. ABDOMEN: Soft, nontender, nondistended. Lowe r extremities are without edema. Her left lower extremity is externally rotated and foreshortened. There is no edema. SKIN: Without rash. NEUROLOGIC: Nonfocal. LABORATORY DATA: Today her white count 11.7, hematocrit 37, platelets are 172,000. Coags are normal . Sodium 135, potassium 4.6, chloride 105, bicarb 19, BUN 76, creatinine 2.7. Her baseline is 1.6. Glucose 169. Troponin is 0.062. EKG interpreted by me, shows a sinus at 80 with normal axis and in tervals. T-wave inversions inferiorly and in the lateral precordium compared with EKGs from prior ad missions, such as during July of this year. They are unchanged although her T-wave inversions were mo re pronounced in July. This is likely in the setting of STEMI. I discussed the case with Dr. Luis Epps and Dr. Fernando Biggs. ASSESSMENT/PLAN: An 81-year-old female, presents with likely mechanical fall, hip fracture, trauma. 1. Preoperative cardiac evaluation. The patient has an indeterminate troponin in the setting of kid justino injury and bradycardia. We will repeat it. I doubt acute coronary syndrome. The patient also h as bradycardia in the setting of a beta ena. I will hold her beta ena. The patient is in ur gent need for surgery given her hip fracture and recommend proceeding to the OR without further viviane p or intervention. I discussed the risks and benefits of the timely surgery with the family, and the y accept the risks. We will continue her aspirin postoperatively. 2. Systolic heart failure. The patient is euvolemic, actually dry. I will write her for a L of IV fluid now. I will hold her diuretics. 3. Diabetes. We will start her Lantus not this evening but tomorrow evening giving her n.p.o. past midnight. I will put her lispro sliding scale. She is not on orals. 4. Hypertension. Continue her JENNY inhibitor. Hold her beta ena. 5. Pain. Scheduled Tylenol. Will give her some p.r.n. oxycodone. 6. Prophylaxis. Pharmacologic prophylaxis indicated. Will give her dose once now. 7. Acute kidney injury. I think this is prerenal, probably over-diuresis in the setting of JENNY inhi bitor and diuretics. Give her a L of IV fluids and repeat it in the morning. 8. Bradycardia. I believe this is probably attributable to beta-ena therapy in an elderly perso n, can not rule out sinus node dysfunction. We will follow on telemetry and hold her beta ena. I think it is probably reasonable to permanently discontinue it. Thanks for the consultation. [facility] will follow. /[id number]/MODL
--- NOTE | 2016-12-02 18:51 | GCON ---
[f rep st] CONSULTATION DATE OF CONSULTATION: 12/02/2016 REASON FOR CONSULTATION: Hip fracture, left side. HISTORY OF PRESENT ILLNESS: The patient is an 81-year-old female who slipped and fell today at home. It was a witnessed fall by her daughter who lives with her. She injured her hand as well as her hi p. Brought to the emergency department. She has been admitted to the trauma service because she has [address] Micheal Fuchs from the hospitalist service will also see her and I was cons ulted to see her for her hip injury. It does sound like she did have some bradycardia, hypotension i n the ambulance and she has had some of that as well in the emergency department. She does have a hi story of [place] in the past. PRIOR MEDICAL HISTORY: Diabetes, heart disease. MEDICATIONS: Aspirin 81 mg daily, Tylenol, Lipitor, vitamin D3, vitamin B12, Lispro insulin, enalapr il, furosemide, Levothyroxine, metoprolol, and omeprazole. ALLERGIES: Sulfa antibiotics gives her swelling in the neck, face, and throat. SOCIAL HISTORY: She does continue to live independently. She lives with her daughter. She uses a w alker for ambulation at home. REVIEW OF SYSTEMS: Otherwise, no shortness of breath or chest pain. PHYSICAL EXAM: VITAL SIGNS: In the emergency department, temperature is 36.6, heart rate 60, respir atory rate 16, blood pressure is 141/64, oxygen saturation 100% on room air. GENERAL: Alert and evan ented x3. Daughter is at her bedside. HEENT: Normocephalic, atraumatic. Extraocular muscles intac t. NECK: Supple. There is no lymphadenopathy. No JVD. CHEST: Clear to auscultation. CARDIOVASC ULAR: Regular rate and rhythm. ABDOMEN: Soft, nontender, nondistended. EXTREMITIES: Left hip lluvia n with passive range of motion. Leg lengths are equal. Skin is intact over the hip. Compartments a re soft. 1+ dorsalis pedis, posterior tibial pulses. She has 5/5 ankle dorsiflexion, plantar flexio n, strength. X-rays, 2 views of the hip, show a nondisplaced femoral neck fracture. She has diffuse osteopenia. There is some underlying osteoarthritis in the hip. ASSESSMENT: Nondisplaced femoral neck fracture, left. PLAN: Long discussion with the patient and her daughter. I think the best course of action would be to proceed with a percutaneous pinning of this hip fracture. I have also spoken with Dr. Micheal shah. Will plan on this tentatively for tomorrow. He is going to do a little bit more of a cardiac wor kup with at least an EKG and follow this bradycardia. Will make her nothing per mouth after midnight . Again, the plan will be for surgery late morning tomorrow. /[id number]/MODL
[2016-12-02] MEDS: INSULIN LISPRO 100 UNIT/ML SC SCH (19:44)
[2016-12-02] MEDS ORDERED: INSULIN GLARGINE HUM REC ANLOG 6 UNIT SQ SCH (21:00)
[2016-12-02] MEDS ORDERED: ASPIRIN 81 MG CHEWABLE TAB PO SCH (21:00)
[2016-12-02] MEDS: ATORVASTATIN CALCIUM 40 MG TAB PO SCH (22:23)
[2016-12-02] MEDS: LIDOCAINE 5% 1 EA PATCH TD SCH (22:23)
--- NOTE | 2016-12-02 22:38 | GHP ---
[f rep st] HISTORY AND PHYSICAL DATE OF ADMISSION: 12/02/2016 CHIEF COMPLAINT: Fall. HISTORY OF PRESENT ILLNESS: The patient is an 81-year-old woman who states she had a mechanical fall while at home and fell on her left side. There was question with EMS whether this was a syncopal ev ent and irregular rhythm on route to the hospital. She complains of hand pain and hip pain. She pham s not report any lightheadedness, weakness or vertigo. She did not lose consciousness. PAST MEDICAL HISTORY: Coronary artery disease with history of myocardial infarction, systolic heart failure with EF of 30%-35%, diabetes mellitus, history of syncope, mild dementia. ALLERGIES: Bananas and sulfa. HOME MEDICATIONS: Reviewed on [employer]. SOCIAL HISTORY: She denies tobacco or alcohol use. She is . She lives with her daughter. FAMILY HISTORY: Her daughter is healthy. REVIEW OF SYSTEMS: A 10-point review of systems negative except per HPI. PHYSICAL EXAM: VITAL SIGNS: 36.6, 48, 99/53, 16, 98% room air. GENERAL: Pleasant, well-nourished, well-groomed woman, sitting up in gurney in good spirits. She is in no acute distress. HEENT: Norm ocephalic. No gross hearing deficits. Mucous membranes moist. Pupils equal and round to light and accommodation. No otorrhea. No hemotympanum. No rhinorrhea. Edentulous. Oropharynx clear. Mucou s membranes moist. NECK: No cervical spine tenderness. Full range of motion. LUNGS: Clear to aus cultation bilaterally. No increased work of breathing. CARDIAC: Bradycardic. No peripheral edema. ABDOMEN: Bowel sounds present. Soft, nontender, nondistended. No ecchymosis. MUSCULOSKELETAL: She has 5/5 strength upper and lower extremities. She does have pain with moving her left leg and he r left hand. SKIN: No abrasions. NEUROLOGIC: Grossly intact. PSYCH: Mood and affect normal. LAB RESULTS: I personally reviewed the x-ray and see the femoral neck fracture. She also has a frac ture of her 4th metacarpal and 3rd finger. IMPRESSION AND PLAN: The patient is an 81-year-old status post fall. I am wondering if bradycardia contributed to this. I will admit her and the Trauma Service will perform a tertiary survey tomorrow . If no additional injuries are found then Medicine will be primary with Ortho as consulting. They are continuing to work her up for her bradycardia. Dr. Ellington has seen her and is planning althea teixeira on surgical fixation of her hip tomorrow morning. N.p.o. at midnight. Nonweightbearing left lo wer extremity. Physical therapy, occupational therapy and speech therapy are ordered. /[id number]/MODL
[2016-12-02] MEDS: INSULIN GLARGINE 100 UNITS/ML SYRINGE SC SCH (23:06)
[2016-12-03] MEDS ORDERED: NS 500 ML IV ONE ×2 (05:06→16:22)
[2016-12-03] MEDS: ACETAMINOPHEN 500 MG TAB PO SCH ×3 (05:34→21:03)
[2016-12-03] MEDS: LEVOTHYROXINE 100 MCG TAB PO SCH (05:34)
[2016-12-03] MEDS: NS 1,000 ML IV SCH (05:59)
--- NOTE | 2016-12-03 08:59 | TRAUMAPN ---
- Problem/Surgery Performed (1) CKD (chronic kidney disease) Qualifiers: Chronic kidney disease stage: stage 2 (mild) Qualified Code(s): N18.2 - Chronic kidney disease, stage 2 (mild) (3) CHF (congestive heart failure) Qualifiers: Congestive heart failure type: combined (5) Fracture of femoral neck, left Assessment/Plan: ORIF scheduled by Dr. Ellington later today will recheck H/H, type and screen pre-op skin prep with 4% chlorhexidine Qualifiers: Encounter type: initial encounter Fracture type: closed Qualified Code(s) : S72.002A - Fracture of unspecified part of neck of left femur, initial encounter for closed fracture (6) Hand fracture, left Assessment/Plan: splinted/non-displaced Qualifiers: Encounter type: initial encounter Fracture type: closed Qualified Code(s) : S62.92XA - Unspecified fracture of left wrist and hand, initial encounter for closed fracture (9) Syncope Assessment/Plan: consider carotid ultrasound in work-up Assessment/Plan: s/p fall with LEFT hip fx/Left 3rd PP+ 4th MC fx multiple medical problems scheduled for ORIF today Will repeat cbc/BMP and obtain type and screen if no further problems arise the Trauma Service will sign off today -discussed with Dr. Sidhu Reconsult Trauma Service as needed. Objective: Vital Signs Temp Pulse Resp BP Pulse Ox 36.6 C 54 L 16 129/72 H 93 12/03/16 07:08 12/03/16 07:08 12/03/16 07:08 12/03/16 07:08 12/03/16 07:08 12/02/16 12/03/16 12/04/16 05:59 05:59 05:59 Intake Total 1850 Output Total 750 Balance 1100 PT 14.0 SEC (12.0-15.0) 12/02/16 12:15 INR 1.09 (0.83-1.16) 12/02/16 12:15 - C-Spine Clearance Cervical Spine Cleared: Yes Provider who Cleared Cervical Spine: Luís Physical Exam - Physical Exam General Appearance: alert, no apparent distress EENT: normal ENT inspection Neck: non-tender, supple, carotid bruit (bilateral carotid bruit vs. transmitted murmur) Respiratory: lungs clear, normal breath sounds Cardiac/Chest: regular rate, rhythm Peripheral Pulses: 0: dorsalis-pedis (L) (audible DP/PT by doppler), 1+: femoral (L), dorsalis-pedis (R), 2+: carotid (R) (bruit), carotid (L) (bruit), femoral (R) Abdomen: non-tender, soft Pelvic Exam: deferred Rectal: deferred, other (incontinent of stool this AM) Skin: normal color, warm/dry Neuro/Psych: alert, normal mood/affect, oriented x 3 Time Spent w/Patient (minutes): 20
[2016-12-03] MEDS ORDERED: Herbals/Supplements -Info Only PO SCH (09:00)
[2016-12-03] MEDS: CYANO/VITAMIN B12 1000 MCG TAB PO SCH (09:24)
[2016-12-03] MEDS: INSULIN LISPRO 100 UNIT/ML SC SCH ×3 (09:24→19:23)
[2016-12-03] MEDS: CHOLECALCIFEROL VIT D3 2,000 UNITS TAB/CAP PO SCH (09:24)
[2016-12-03] MEDS: ENALAPRIL MALEATE 10 MG TAB PO SCH (09:24)
[2016-12-03] MEDS: LIDOCAINE 5% 1 EA PATCH TD SCH ×2 (10:45→21:04)
[2016-12-03] MEDS: traMADol 50 MG TAB PO PRN ×2 (11:20→21:02)
[2016-12-03 11:54] LABS: HEMATOCRIT 33.5 % (38.0-47.0); HEMOGLOBIN 10.8 g/dL (12.6-16.3); MEAN CELL HEMOGLOBIN 28.6 pg (27.9-34.1); MEAN CELL HEMOGLOBIN CONCENTR. 32.2 g/dL (32.4-36.7); MEAN CELL VOLUME 88.6 fL (81.5-99.8); RED BLOOD CELL COUNT 3.78 10^6/uL (4.18-5.33); RED CELL DISTRIBUTION WIDTH 15.1 % (11.5-15.2)
--- NOTE | 2016-12-03 11:58 | SOAPPROG ---
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 There is reversal of flow in the right vertebral artery that suggests the possibility of a right subcalvian artery stenosis. She is on ASA and I would not delay surgery today. I have requested a vascular consult from Dr. Torres and she will need close follow up as an outpatient. I did not order a CTA due to her elevated creatinine. Candy Amaya MD, FACS
[2016-12-03 12:17] LABS: ANION GAP 11 mEq/L (8-16); CARBON DIOXIDE 16 mEq/l (22-31); CHLORIDE 111 mEq/L (97-110); CREATININE 2.2 mg/dL (0.6-1.0); GLOMERULAR FILTRATION RATE 21; GLUCOSE 137 mg/dL (70-100); POTASSIUM 4.4 mEq/L (3.5-5.2); SODIUM 138 mEq/L (134-144)
[2016-12-03] MEDS ORDERED: CEFAZOLIN 1 GM/DEXTROSE/50 ML BAG IV ONE (13:00)
--- NOTE | 2016-12-03 13:07 | PDANEPAE ---
ANE History of Present Illness l hip fracture ANE Past Medical History - Cardiovascular History Hx Hypertension: Yes Hx Coronary Artery / Peripheral Vascular Disease: Yes Hx CHF / Valvular Disease: Yes - Pulmonary History Hx Oxygen in Use at Home: No Hx Sleep Apnea: No Sleep Apnea Screening Result - Last Documented: Negative - Neurologic History Hx Cerebrovascular Accident: Yes - Endocrine History Hx Diabetes: Yes ANE Review of Systems Review of Systems: ANE Patient History - Allergies Allergies/Adverse Reactions: banana Allergy (Verified 07/24/16 17:47) Sulfa (Sulfonamide Antibiotics) Allergy (Verified 12/02/16 13:51) Swelling/neck,face,throat - Home Medications Home Medications: Acetaminophen [Tylenol ES 500 mg (*)] 500 - 1,000 mg PO BID PRN 07/23/16 [Last Taken Unknown] Aspirin [Aspirin 81mg (*)] 81 mg PO HS 07/23/16 [Last Taken 12/01/16] Atorvastatin Calcium [Lipitor 40 mg (*)] 80 mg PO HS 07/23/16 [Last Taken ] Cholecalciferol Vit D3 [Vitamin D3 (*)] 2,000 units PO DAILY 07/23/16 [Last Taken 12/01/16] Cyanocobalamin [Vitamin B12 (*)] 1,000 mcg PO DAILY 07/23/16 [Last Taken ] Herbals/Supplements -Info Only 1 ea PO DAILY 07/23/16 [Last Taken Unknown] Enalapril Maleate [Vasotec 10 MG (*)] 10 mg PO DAILY 12/02/16 [Last Taken ] Furosemide [Lasix 40 MG (*)] 40 mg PO DAILY 12/02/16 [Last Taken 12/02/16] Insulin Glargine,Hum.rec.anlog [Lantus Solostar] 6 unit SQ HS 12/02/16 [Last Taken 12/01/16] Levothyroxine [Synthroid 100 mcg (*)] 100 mcg PO DAILY06 12/02/16 [Last Taken ] Metoprolol Succinate Xr [Toprol Xl 25 mg (*)] 25 mg PO BID 12/02/16 [Last Taken 12/02/16] Omeprazole [Prilosec 20 mg] 20 mg PO DAILY PRN 12/02/16 [Last Taken Unknown] - NPO status NPO Since - Liquids (Date): 12/02/16 NPO Since - Liquids (Time): 22:00 NPO Since - Solids (Date): 12/02/16 NPO Since - Solids (Time): 00:00 - Smoking Hx Smoking Status: Former smoker - Alcohol Use Alcohol Use: Sober ANE Labs/Vital Signs - Labs Result Diagrams: 12/03/16 11:24 12/03/16 11:24 - Vital Signs Blood Pressure: 98/59 Heart Rate: 55 Respiratory Rate: 12 O2 Sat (%): 97 Height: 163.83 cm Weight: 70.307 kg ANE Physical Exam - Airway Neck exam: FROM Mallampati Score: Class 1 Mouth exam: dentures - Pulmonary Pulmonary: no respiratory distress - Cardiovascular Cardiovascular: regular rate and rhythym - ASA Status ASA Status: IV ANE Anesthesia Plan Anesthesia Plan: general endotracheal anesthesia
[2016-12-03] MEDS: BUPIVACAINE/EPI 0.5% 30 ML SDV ONE ×2 (13:09→14:00)
[2016-12-03] MEDS ORDERED: fentaNYL 100 MCG/2 ML INJ ONE (13:11)
[2016-12-03] MEDS ORDERED: ROCURONIUM 50 MG/5 ML VIAL ONE (13:11)
[2016-12-03] MEDS ORDERED: PROPOFOL 200 MG/20 ML VIAL ONE (13:11)
[2016-12-03] MEDS ORDERED: PHENYLEPHRINE HCL 100 MCG/ML SYR ONE (14:01)
[2016-12-03] MEDS ORDERED: epHEDrine SULFATE 10 MG/ML SYR ONE (14:01)
[2016-12-03] MEDS ORDERED: fentaNYL 100 MCG/2 ML INJ IVP PRN (14:10)
[2016-12-03] MEDS ORDERED: PROMETHAZINE HCL 25 MG/ML INJ IVP PRN (14:10)
[2016-12-03] MEDS ORDERED: ONDANSETRON 4 MG/2 ML VIAL IVP PRN (14:10)
[2016-12-03] MEDS ORDERED: NALOXONE HCL 0.4 MG/ML INJ IVP PRN (14:10)
--- NOTE | 2016-12-03 14:10 | POSTOPPROG ---
Post Op Note Date of Operation: 12/03/16 Surgeon: Luis Ellington Anesthesiologist: Kevin Anesthesia: GET(General Endotracheal) Pre-op Diagnosis: Left femoral neck fracture Post-op Diagnosis: same Procedure: PCP lt Femoral neck Findings: nondisplaced femoral neck fx Inf/Abcess present in the surg proc area at time of surgery?: No EBL: Minimal Complications: none
--- NOTE | 2016-12-03 14:12 | POSTANESTH ---
Post Anesthetic Evaluation Cardiovascular Status: Similar to Pre-Op Cond Respiratory Status: Normal, Stable Level of Consciousness/Mental Status: Can Participate in Eval Pain Control: Adequate, Prn Tx Ordered Nausea/Vomiting Control: Adequate, Prn Tx Ordered Complications Possibly Related to Anesthesia: None Noted
[2016-12-03] MEDS ORDERED: NON-FORMULARY NEW DRUG (Omeprazole [Prilosec 20 Mg] 20 MG) PO PRN (15:01)
--- NOTE | 2016-12-03 15:04 | HOSPPROG ---
Hospitalist Progress Note Assessment/Plan: # acute hip and hand fractures on left- patient NPO for operating room today - management per Orthopedic surgery and Trauma surgery # chronic systolic heart failure- clinically compensated- oxygen saturations 97 % on 2 L - continue beta-ena- will switch to low dose Coreg as bradycardic at presentation - hold Lasix until postop - continue telemetry monitoring # coronary artery disease- patient without chest pain complaints- EKG without acute changes Troponin 0.11 on presentation- well within her previous baseline- TELE ( personally reviewed and interpreted) sinus in 60's - continue aspirin, statin, beta-ena # CKD - creatinine 2.2 at presentation at baseline - holding Lasix - monitor daily # diabetes mellitus- continue low-dose glargine and sliding scale insulin # hypothyroidism- continue Synthroid # prophylaxis per Orthopedic surgery # diet NPO for OR # disposition greater than 2 midnights the patient medically comorbid with acute fracture requiring surgical repair and postoperative recovery I have discussed case with Dr. Amaya from Trauma surgery- we will follow along and manage medical issues Subjective: painful Objective: Vital Signs Temp Pulse Resp BP Pulse Ox 36.2 C 55 L 12 133/60 H 97 12/03/16 14:27 12/03/16 13:07 12/03/16 14:42 12/03/16 14:42 12/03/16 14:42 Laboratory Results 12/03/16 11:24 12/03/16 11:24 12/02/16 12/03/16 12/04/16 05:59 05:59 05:59 Intake Total 1250 400 Output Total 750 5 Balance 500 395 PT 14.0 SEC (12.0-15.0) 12/02/16 12:15 INR 1.09 (0.83-1.16) 12/02/16 12:15 - Physical Exam Constitutional: chronically ill appearing Eyes: anicteric sclera Ears, Nose, Mouth, Throat: moist mucous membranes Cardiovascular: regular rate and rhythym, systolic murmur Respiratory: no respiratory distress Gastrointestinal: normoactive bowel sounds Genitourinary: no bladder fullness Skin: normal color Musculoskeletal: No asymmetric calves Neurologic: AAOx3 Psychiatric: interacting appropriately Lymph, Heme, Immunologic: no cervical LAD ICD10 Worksheet Patient Problems: Problems Problem Status Onset CHF (congestive heart failure) Acute CKD (chronic kidney disease) 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
[2016-12-03] MEDS ORDERED: PANTOPRAZOLE SODIUM 40 MG TAB PO PRN (15:07)
--- NOTE | 2016-12-03 15:38 | GOP ---
[f rep st] OPERATIVE REPORT DATE OF OPERATION: 12/03/2016 SURGEON: Luis Ellington MD ANESTHESIA: General. PREOPERATIVE DIAGNOSIS: Left femoral neck fracture. POSTOPERATIVE DIAGNOSIS: Left femoral neck fracture. PROCEDURE PERFORMED: Percutaneous pinning, left femoral neck. FINDINGS: ESTIMATED BLOOD LOSS: Minimal. INDICATIONS: The patient is an 81-year-old female, who slipped and fell yesterday at home, was broug ht to the emergency department. Found to have a femoral neck fracture, as well as a metacarpal fract ure in her left hand. She was admitted to Trauma Service as well as Hospitalist Service. She was th en brought to the operating room today for definitive fixation of her fracture. DESCRIPTION OF PROCEDURE: After appropriate informed consent was obtained, patient taken to the oper ating room, placed supine on the operating table. A time-out was performed. Patient was identified. Correct site was identified, matched with the radiographs available in the room. She received a g of Ancef preoperatively. Following the induction of general endotracheal tube anesthesia, the patient was positioned on the fr acture table. Left lower extremity was placed in traction arm. Right lower extremity was placed in a well-padded well leg worley. All bony prominences were well padded. We brought in fluoroscopy. T he fracture had not displaced. It was lined up well. We then prepped the left hip in usual sterile fashion. I placed 3 partially threaded guidewires under fluoroscopic visualization in an inverted V fashion. I made a small karen incision in the skin and drilled the near cortex, and then placed three 7.3 mm sc rews with good bony purchase. The guidewires were removed. Final imaging both AP and lateral were o btained which showed satisfactory alignment of the hardware. I closed the skin with 3-0 nylon. I in stilled 20 mL 0.5% Marcaine with epinephrine in the incision. Sterile dressing was applied. Patient was transferred back to the hospital bed, taken to the recovery room in satisfactory condition. The re were no immediate intraoperative complications. COMPLICATIONS: None. DRAINS: None. IMPLANTS USED: Three 7.3 mm cannulated screws, partially threaded Synthes. /[id number]/MODL
[2016-12-03] MEDS: CARVEDILOL 6.25 MG TAB PO SCH (18:18)
--- NOTE | 2016-12-03 18:22 | SOAPPROG ---
SOSOPHIE Progress Note Assessment/Plan: Assessment: 81-YEAR-OLD FEMALE ADMITTED FOR FALL WITH THE LEFT HIP FRACTURE. HIP IS BEEN FIXED. SHE HAS MULTIPLE OTHER MEDICAL PROBLEMS INCLUDING ATRIAL FIB AND A RUN OF V-TACH. 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 I WAS CONSULTED FOR CAROTID EVALUATION. 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 THE LEFT CAROTID IS READ IS ONLY 30% STENOSIS BUT HER VELOCITIES ARE MUCH HIGHER THAN A 30% STENOSIS. IT IS POSSIBLE THAT MAY BE A COMPENSATORY VELOCITY. IT APPEARS THAT SHE HAS HAD A RIGHT CAROTID ENDARTERECTOMY IN THE PAST ALTHOUGH SHE DOES NOT REMEMBER THE DETAILS OF WHERE OR WHEN. THE FACE OF THE BRUIT SHE SHOULD HAVE A CT ANGIOGRAM IF HER RENAL FUNCTION RETURNS TO NORMAL Plan: I WILL FOLLOW HER CAROTID STATUS AND SEE YEARS AN OUTPATIENT/IF HER RENAL FUNCTION IMPROVES WOULD RECOMMEND A CAROTID CTA 12/03/16 18:17 Objective: Vital Signs Temp Pulse Resp BP Pulse Ox 36.3 C 58 L 16 115/61 97 12/03/16 18:07 12/03/16 18:07 12/03/16 18:07 12/03/16 18:07 12/03/16 18:07 Laboratory Results 12/03/16 11:24 12/03/16 11:24 12/02/16 12/03/16 12/04/16 05:59 05:59 05:59 Intake Total 1250 400 Output Total 750 305 Balance 500 95 PT 14.0 SEC (12.0-15.0) 12/02/16 12:15 INR 1.09 (0.83-1.16) 12/02/16 12:15 ICD10 Worksheet Patient Problems: Problems Problem Status Onset CHF (congestive heart failure) Acute CKD (chronic kidney disease) 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
[2016-12-03] MEDS ORDERED: METOPROLOL SUCCINATE XR 25 MG TAB PO SCH (21:00)
[2016-12-03] MEDS: INSULIN GLARGINE 100 UNITS/ML SYRINGE SC SCH (21:01)
[2016-12-03] MEDS: ATORVASTATIN CALCIUM 40 MG TAB PO SCH (21:03)
[2016-12-04] MEDS: HYDROCODONE/APAP 5/325 TAB PO PRN (01:19)
[2016-12-04] MEDS: ACETAMINOPHEN 500 MG TAB PO SCH ×3 (05:38→21:24)
[2016-12-04] MEDS: LEVOTHYROXINE 100 MCG TAB PO SCH (05:38)
[2016-12-04 05:53] LABS: % IMMATURE GRANULYOCYTES 0.5 % (0.0-1.1); ABSOLUTE IMMATURE GRANULOCYTES 0.04 10^3/uL (0.00-0.10); ADD DIFF? NO; ADD MORPH? NO; ADD SCAN? NO; ATYPICAL LYMPHOCYTE FLAG 0 (0-99); FRAGMENT RBC FLAG 20 (0-99); HEMATOCRIT 29.1 % (38.0-47.0); HEMOGLOBIN 9.3 g/dL (12.6-16.3); LEFT SHIFT FLG 0 (0-99); LIPEMIA HEMOLYSIS FLAG 80 (0-99); MEAN CELL HEMOGLOBIN 29.2 pg (27.9-34.1); MEAN CELL VOLUME 91.5 fL (81.5-99.8); PLATELET CLUMPS FLAG 10 (0-99); PLATELET COUNT 107 10^3/uL (150-400); RED BLOOD CELL COUNT 3.18 10^6/uL (4.18-5.33); RED CELL DISTRIBUTION WIDTH 15.1 % (11.5-15.2)
[2016-12-04 06:19] LABS: ANION GAP 12 mEq/L (8-16); CALCIUM 8.4 mg/dL (8.5-10.4); CARBON DIOXIDE 14 mEq/l (22-31); CHLORIDE 116 mEq/L (97-110); GLOMERULAR FILTRATION RATE 24; GLUCOSE 192 mg/dL (70-100); POTASSIUM 4.7 mEq/L (3.5-5.2); SODIUM 142 mEq/L (134-144)
[2016-12-04] MEDS ORDERED: RIVAROXABAN 10 MG TAB PO SCH (09:00)
--- NOTE | 2016-12-04 10:36 | CPEKG ---
Heart Rate: 54 RR Interval: 1111 P-R Interval: 144 QRSD Interval: 104 QT Interval: 528 QTC Interval: 501 P [place]: 55 QRS [place]: 34 T Wave [place]: -45 EKG Severity - ABNORMAL ECG - EKG Impression: SINUS ARRHYTHMIA, RATE 44-64 EKG Impression: BORDERLINE INFERIOR Q WAVES EKG Impression: NONSPECIFIC T ABNORMALITIES, INFERIOR LEADS EKG Impression: BORDERLINE PROLONGED QT INTERVAL Electronically Signed By: Rosmery Chu 04-Dec-2016 12:03:07
[2016-12-04] MEDS: NS 1,000 ML IV SCH ×2 (10:48→19:58)
[2016-12-04] MEDS: INSULIN LISPRO 100 UNIT/ML SC SCH ×3 (13:28→18:05)
[2016-12-04] MEDS: LIDOCAINE 5% 1 EA PATCH TD SCH (13:33)
[2016-12-04] MEDS: CYANO/VITAMIN B12 1000 MCG TAB PO SCH (13:39)
[2016-12-04] MEDS: CARVEDILOL 6.25 MG TAB PO SCH (13:40)
[2016-12-04] MEDS: ENALAPRIL MALEATE 10 MG TAB PO SCH (13:40)
[2016-12-04] MEDS: CHOLECALCIFEROL VIT D3 2,000 UNITS TAB/CAP PO SCH (13:40)
--- NOTE | 2016-12-04 14:26 | ASMTCMCOM ---
CM Note CM Note Notes: CM met w/ pt and daughter for dispo planning. PT is recommending SNF. CM still awaiting recommendation from OT. Pt and daughter would like a referral made to [facility]. Pt was at [facility] recently and had a positive experience. CM faxed over referral to [facility]. CM to follow. Date Signed: 12/04/2016 02:26 PM Electronically Signed By:HARIKA Barker
--- NOTE | 2016-12-04 15:48 | HOSPPROG ---
Hospitalist Progress Note Assessment/Plan: # acute hip and hand fractures on left- patient s/p intraoperative fixation POD #1 - oxycodone overnight led to severe somnolence - decrease oxycodone dose - PT/OT - will discuss prophylaxis with ortho as xarelto is contraindicated with her CKD # chronic systolic heart failure- clinically compensated- oxygen saturations 97 % on 2 L - switched to low dose Coreg as bradycardic at presentation- holding for hypotension this am - hold Lasix for hypotension - continue telemetry monitoring # coronary artery disease- patient without chest pain complaints- EKG without acute changes Troponin 0.11 on presentation- well within her previous baseline- TELE ( personally reviewed and interpreted) sinus in 50's - continue aspirin, statin, holding beta-ena # CKD - creatinine 2.7-> 2.0 tis am - may be over diuresed outpt - cont holding Lasix - cont maintenance while PO minimal - monitor daily # diabetes mellitus- continue low-dose glargine and sliding scale insulin # hypothyroidism- continue Synthroid # prophylaxis per Orthopedic surgery # diet cardiac # disposition greater than 2 midnights the patient medically comorbid with acute fracture requiring surgical repair and postoperative recovery I have discussed case with Pharm D - they recommend warfarin post-op prophylaxis - will clear with ortho Subjective: had pain overnight Objective: Vital Signs Temp Pulse Resp BP Pulse Ox 36.9 C 57 L 16 95/54 L 90 L 12/04/16 15:34 12/04/16 15:34 12/04/16 15:34 12/04/16 15:34 12/04/16 15:34 Laboratory Results 12/04/16 03:48 12/04/16 03:48 12/03/16 12/04/16 12/05/16 05:59 05:59 05:59 Intake Total 1250 3133 Output Total 750 305 Balance 500 2828 PT 14.0 SEC (12.0-15.0) 12/02/16 12:15 INR 1.09 (0.83-1.16) 12/02/16 12:15 - Physical Exam Constitutional: chronically ill appearing Eyes: anicteric sclera Ears, Nose, Mouth, Throat: dry mucous membranes Cardiovascular: regular rate and rhythym, systolic murmur Respiratory: no respiratory distress, no rales or rhonchi Gastrointestinal: normoactive bowel sounds Genitourinary: no bladder fullness Skin: warm Musculoskeletal: No asymmetric calves Neurologic: No AAOx3 Psychiatric: other (somnolent) Lymph, Heme, Immunologic: no cervical LAD ICD10 Worksheet Patient Problems: Problems Problem Status Onset CHF (congestive heart failure) Acute CKD (chronic kidney disease) 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
[2016-12-04] MEDS: traMADol 50 MG TAB PO PRN (18:05)
--- NOTE | 2016-12-04 18:51 | SOAPPROG ---
MOHAN Progress Note Assessment/Plan: Assessment: 81-YEAR-OLD FEMALE ADMITTED FOR FALL WITH THE LEFT HIP FRACTURE. HIP IS BEEN FIXED. SHE HAS MULTIPLE OTHER MEDICAL PROBLEMS INCLUDING ATRIAL FIB AND A RUN OF V-TACH. 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 I WAS CONSULTED FOR CAROTID EVALUATION. 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 THE LEFT CAROTID IS READ IS ONLY 30% STENOSIS BUT HER VELOCITIES ARE MUCH HIGHER THAN A 30% STENOSIS. IT IS POSSIBLE THAT MAY BE A COMPENSATORY VELOCITY. IT APPEARS THAT SHE HAS HAD A RIGHT CAROTID ENDARTERECTOMY IN THE PAST ALTHOUGH SHE DOES NOT REMEMBER THE DETAILS OF WHERE OR WHEN. THE FACE OF THE BRUIT SHE SHOULD HAVE A CT ANGIOGRAM IF HER RENAL FUNCTION RETURNS TO NORMAL Plan: I WILL FOLLOW HER CAROTID STATUS AND SEE YEARS AN OUTPATIENT/IF HER RENAL FUNCTION IMPROVES WOULD RECOMMEND A CAROTID CTA 12/03/16 18:17 12/04/16 18:50 VERY SOMNOLENT TODAY/ CREAT IMPROVING/ MAYBE ABLE TO HAVE CAROTID CTA SOON Objective: Vital Signs Temp Pulse Resp BP Pulse Ox 36.9 C 57 L 16 95/54 L 90 L 12/04/16 15:34 12/04/16 15:34 12/04/16 15:34 12/04/16 15:34 12/04/16 15:34 Laboratory Results 12/04/16 03:48 12/04/16 03:48 12/03/16 12/04/16 12/05/16 05:59 05:59 05:59 Intake Total 1250 3133 1214 Output Total 750 305 Balance 500 2828 1214 PT 14.0 SEC (12.0-15.0) 12/02/16 12:15 INR 1.09 (0.83-1.16) 12/02/16 12:15 ICD10 Worksheet Patient Problems: Problems Problem Status Onset CHF (congestive heart failure) Acute CKD (chronic kidney disease) 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
[2016-12-04] MEDS: ATORVASTATIN CALCIUM 40 MG TAB PO SCH (21:24)
[2016-12-04] MEDS: INSULIN GLARGINE 100 UNITS/ML SYRINGE SC SCH (21:27)
[2016-12-04] MEDS: PATCH REMOVAL 1 EA PATCH TD SCH (21:28)
[2016-12-05] MEDS: HYDROCODONE/APAP 5/325 TAB PO PRN (04:39)
[2016-12-05] MEDS: NS 1,000 ML IV SCH (04:41)
[2016-12-05 04:47] LABS: HEMATOCRIT 28.4 % (38.0-47.0); HEMOGLOBIN 9.1 g/dL (12.6-16.3)
[2016-12-05 05:10] LABS: ANION GAP 9 mEq/L (8-16); CALCIUM 8.3 mg/dL (8.5-10.4); CARBON DIOXIDE 15 mEq/l (22-31); CHLORIDE 119 mEq/L (97-110); CREATININE 1.9 mg/dL (0.6-1.0); GLOMERULAR FILTRATION RATE 25; GLUCOSE 152 mg/dL (70-100); POTASSIUM 4.7 mEq/L (3.5-5.2); SODIUM 143 mEq/L (134-144)
[2016-12-05] MEDS: LEVOTHYROXINE 100 MCG TAB PO SCH (06:12)
[2016-12-05] MEDS: ACETAMINOPHEN 500 MG TAB PO SCH ×3 (06:12→21:24)
--- NOTE | 2016-12-05 07:05 | SOAPPROG ---
SOAP Progress Note Assessment/Plan: Assessment: POD#2 PCP lt fem neck fx Plan: 12/05/16 07:03 Changed xarelto to lovenox for DVT proph if CR drops <20 will switch to coumadin Cont PT/OT 50% wbat with platform for lt arm Subjective: slept o/n pain controlled Objective: dressing with min bloody drainage leg lengths equal calf soft 5/5 df/pf Vital Signs Temp Pulse Resp BP Pulse Ox 36.4 C 85 18 140/78 H 93 12/05/16 04:47 12/05/16 04:47 12/05/16 04:47 12/05/16 04:47 12/05/16 04:47 Laboratory Results 12/05/16 04:22 12/05/16 04:22 12/04/16 12/05/16 12/06/16 05:59 05:59 05:59 Intake Total 3133 2601 Output Total 305 200 Balance 2828 2401 PT 14.0 SEC (12.0-15.0) 12/02/16 12:15 INR 1.09 (0.83-1.16) 12/02/16 12:15 ICD10 Worksheet Patient Problems: Problems Problem Status Onset CHF (congestive heart failure) Acute CKD (chronic kidney disease) 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
[2016-12-05] MEDS ORDERED: ENOXAPARIN 30 MG/0.3 ML SYR SC SCH (09:00)
[2016-12-05] MEDS: HEPARIN 5,000 UNIT/0.5 ML SYR SC SCH ×3 (09:36→21:23)
[2016-12-05] MEDS: INSULIN LISPRO 100 UNIT/ML SC SCH ×3 (09:43→17:20)
[2016-12-05] MEDS: LIDOCAINE 5% 1 EA PATCH TD SCH (09:46)
[2016-12-05] MEDS: CARVEDILOL 3.125 MG TAB PO SCH ×2 (09:50→17:20)
[2016-12-05] MEDS: CHOLECALCIFEROL VIT D3 2,000 UNITS TAB/CAP PO SCH (09:51)
[2016-12-05] MEDS: WARFARIN SODIUM 4 MG TAB PO SCH ×2 (09:51→16:36)
[2016-12-05] MEDS: CYANO/VITAMIN B12 1000 MCG TAB PO SCH (09:51)
[2016-12-05] MEDS: traMADol 50 MG TAB PO PRN (11:14)
--- NOTE | 2016-12-05 12:17 | SOAPPROG ---
SOAP Progress Note Assessment/Plan: Assessment: 81yo female admitted for fall with hip fracture found to have bilateral carotid bruits and left internal carotid occlusion on ultrasound with a 30% stenosis. Plan is for an carotid CTA once creat improves. May be done as an outpatient. Seen c Dr. Torres S: patient comfortable this morning. No complaints. 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
[2016-12-05] MEDS: oxyCODONE IR 5 MG TAB PO PRN (17:21)
--- NOTE | 2016-12-05 19:10 | HOSPPROG ---
Hospitalist Progress Note Assessment/Plan: Assessment: 81 yo F p/w acute hip fracture s/p fall Plan: # acute hip and hand fractures on left- patient s/p intraoperative fixation POD #2 - decreased dose of oxy IR, removing vicodin from profile - OK for ongoing use of tramadol, but do not want to escalate dose given risk of seizures - PT/OT/plan for [facility] for rehab - most appropriate choice for DVT ppx is coumadin, better than using DOAC or lovenox -WBAT per Dr. Ellington # chronic systolic heart failure- clinically compensated- oxygen saturations 97 % on 2 L - switched to low dose Coreg as bradycardic at presentation, reduced to 3.125 - will restart lasix in AM, monitor Cr # coronary artery disease- patient without chest pain complaints- EKG without acute changes - continue aspirin, statin, beta-ena # GERARDO on CKD Stage III- creatinine 2.7-> 1.9, likely 2/2 hypovolemia as outpt - restart lasix in AM - currently at baseline # Carotid Stenosis- her renal function is presently at baseline and unlikely to get better, so risk / benefit of performing additional CTA imaging should be considered to determine if that stenosis is relevant, will it ultimately lead to a surgery # diabetes mellitus- continue low-dose glargine and sliding scale insulin # hypothyroidism- continue Synthroid # prophylaxis per Orthopedic surgery # diet cardiac # disposition. ADD 12/06 to [facility] if above stable Subjective: patient working well w/ PT Objective: Vital Signs Temp Pulse Resp BP Pulse Ox 36.6 C 55 L 15 126/76 H 96 12/05/16 16:00 12/05/16 16:00 12/05/16 16:00 12/05/16 16:00 12/05/16 16:00 Laboratory Results 12/05/16 04:22 12/05/16 04:22 12/04/16 12/05/16 12/06/16 05:59 05:59 05:59 Intake Total 3133 2601 700 Output Total 305 200 300 Balance 2828 2401 400 PT 14.0 SEC (12.0-15.0) 12/02/16 12:15 INR 1.09 (0.83-1.16) 12/02/16 12:15 - Pending Discharge Pending Discharge Within 24 Hours: Yes Pending Discharge Date: 12/06/16 Pending Discharge Time: 11:00 - Physical Exam Constitutional: no apparent distress, not in pain, other (aged appearing), No uncomfortable Cardiovascular: regular rate and rhythym, no murmur, rub, or gallop, No irregularly irregular, No edema Respiratory: no respiratory distress, no rales or rhonchi, clear to auscultation Gastrointestinal: normoactive bowel sounds, soft, non-tender abdomen, no palpable masses, No distension Skin: other (no ertyhema/induration/ecchymoses/tenderness at L hip surg site) Neurologic: AAOx3, sensation intact bilaterally, No weakness (motor 5/5 bilat LE distally) Psychiatric: interacting appropriately, not anxious, not encephalopathic, thought process linear ICD10 Worksheet Patient Problems: Problems Problem Status Onset Fracture of femoral neck, left Acute Hand fracture, left Acute CKD (chronic kidney disease) 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
[2016-12-05] MEDS: INSULIN GLARGINE 100 UNITS/ML SYRINGE SC SCH (21:23)
[2016-12-05] MEDS: ATORVASTATIN CALCIUM 40 MG TAB PO SCH (21:24)
[2016-12-05] MEDS: PATCH REMOVAL 1 EA PATCH TD SCH (21:46)
[2016-12-06 05:18] LABS: HEMATOCRIT 30.3 % (38.0-47.0); HEMOGLOBIN 9.7 g/dL (12.6-16.3)
[2016-12-06 05:32] LABS: INR 1.78 (0.83-1.16); PROTIME(PATIENT) 20.8 SEC (12.0-15.0)
[2016-12-06 05:34] LABS: ANION GAP 7 mEq/L (8-16); CARBON DIOXIDE 17 mEq/l (22-31); CHLORIDE 115 mEq/L (97-110); CREATININE 1.8 mg/dL (0.6-1.0); GLOMERULAR FILTRATION RATE 27; GLUCOSE 135 mg/dL (70-100); POTASSIUM 4.8 mEq/L (3.5-5.2); SODIUM 139 mEq/L (134-144)
[2016-12-06] MEDS: LEVOTHYROXINE 100 MCG TAB PO SCH (05:57)
[2016-12-06] MEDS: ACETAMINOPHEN 500 MG TAB PO SCH ×3 (05:57→21:42)
[2016-12-06] MEDS: oxyCODONE IR 5 MG TAB PO PRN (06:02)
[2016-12-06] MEDS: HEPARIN 5,000 UNIT/0.5 ML SYR SC SCH ×3 (06:10→21:42)
[2016-12-06] MEDS: INSULIN LISPRO 100 UNIT/ML SC SCH ×3 (09:15→19:18)
[2016-12-06] MEDS: LIDOCAINE 5% 1 EA PATCH TD SCH (09:35)
[2016-12-06] MEDS: CHOLECALCIFEROL VIT D3 2,000 UNITS TAB/CAP PO SCH (09:36)
[2016-12-06] MEDS: CARVEDILOL 3.125 MG TAB PO SCH ×2 (09:36→17:22)
[2016-12-06] MEDS: FUROSEMIDE 40 MG TAB PO SCH (09:36)
[2016-12-06] MEDS: CYANO/VITAMIN B12 1000 MCG TAB PO SCH (09:36)
[2016-12-06] MEDS: traMADol 50 MG TAB PO PRN (10:07)
[2016-12-06] MEDS: ENALAPRIL MALEATE 10 MG TAB PO SCH (11:15)
[2016-12-06] MEDS ORDERED: BISACODYL 10 MG SUPP PR PRN (14:00)
[2016-12-06] MEDS ORDERED: LACTULOSE 20 GM/30 ML UDCUP PO PRN (14:00)
[2016-12-06] MEDS ORDERED: POLYETHYLENE GLYCOL 3350 17 GM PKT PO PRN (14:00)
[2016-12-06] MEDS ORDERED: traMADol 50 MG TAB PO PRN (14:00)
--- NOTE | 2016-12-06 14:04 | HOSPPROG ---
Hospitalist Progress Note Assessment/Plan: Assessment: 81 yo F p/w acute hip fracture s/p fall Plan: # acute hip and hand fractures on left- patient s/p intraoperative fixation POD #3 - decreased dose of oxy IR, removed vicodin from profile, reduced tramadol dosage per patient request - PT/OT/plan for [facility] for rehab - most appropriate choice for DVT ppx is coumadin, better than using DOAC or lovenox - 50% WB per Dr. Ellington notes # chronic systolic heart failure- clinically compensated- oxygen saturations 97 % on 2 L - switched to low dose Coreg as bradycardic at presentation, reduced to 3.125 - restarted lasix today, gauge effect # coronary artery disease- patient without chest pain complaints- EKG without acute changes - continue aspirin, statin, beta-ena # GERARDO on CKD Stage III- creatinine 2.7-> 1.9, likely 2/2 hypovolemia as outpt - restarted lasix and ACEi, monitor Cr - currently at baseline # Carotid Stenosis- her renal function is presently at baseline and unlikely to get better, so risk / benefit of performing additional CTA imaging should be considered to determine if that stenosis is relevant, will it ultimately lead to a surgery # diabetes mellitus- continue low-dose glargine and sliding scale insulin # hypothyroidism- continue Synthroid # prophylaxis per Orthopedic surgery # diet cardiac # disposition. ADD 12/07 to [facility] if above stable Subjective: patient reports that tramadol 50mg HS was too strong, no BM today Objective: Vital Signs Temp Pulse Resp BP Pulse Ox 36.2 C 67 14 133/77 H 96 12/06/16 08:00 12/06/16 08:00 12/06/16 08:00 12/06/16 08:00 12/06/16 08:00 Laboratory Results 12/06/16 04:09 12/06/16 04:09 12/05/16 12/06/16 12/07/16 05:59 05:59 05:59 Intake Total 2601 700 Output Total 200 570 Balance 2401 130 PT 20.8 SEC (12.0-15.0) H 12/06/16 04:09 INR 1.78 (0.83-1.16) H 12/06/16 04:09 - Pending Discharge Pending Discharge Within 24 Hours: Yes Pending Discharge Date: 12/07/16 Pending Discharge Time: 11:00 - Physical Exam Constitutional: no apparent distress, not in pain, chronically ill appearing, No uncomfortable Cardiovascular: systolic murmur (III/ at apex/sternum), No irregularly irregular, No tachycardia, No edema Respiratory: no respiratory distress, no rales or rhonchi, clear to auscultation Gastrointestinal: normoactive bowel sounds, soft, non-tender abdomen, no palpable masses, No distension Skin: other (no ecchymoses/induration/erythema/tenderness at surg site L hip) Neurologic: AAOx3, sensation intact bilaterally, No weakness (motor 5/5 distal bilat LE) Psychiatric: interacting appropriately, not anxious, not encephalopathic, thought process linear, other (word-finding difficulty) ICD10 Worksheet Patient Problems: Problems Problem Status Onset Fracture of femoral neck, left Acute Hand fracture, left Acute CKD (chronic kidney disease) 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
--- NOTE | 2016-12-06 14:23 | ASMTCMCOM ---
CM Note CM Note Notes: 12/06/2016 Case Management Note Updated [facility] with new records. Case Management planning for tentative d/c Thursday. Pt will d/c to [facility] via wheelchair. Case Management to follow. Date Signed: 12/06/2016 02:23 PM Electronically Signed By:Alicia Grace RN
[2016-12-06] MEDS: WARFARIN SODIUM 4 MG TAB PO SCH (15:06)
[2016-12-06] MEDS: INSULIN GLARGINE 100 UNITS/ML SYRINGE SC SCH (21:41)
[2016-12-06] MEDS: SENNOSIDES/DOCUSATE SODIUM TAB PO SCH (21:42)
[2016-12-06] MEDS: ATORVASTATIN CALCIUM 40 MG TAB PO SCH (21:42)
[2016-12-06] MEDS: PATCH REMOVAL 1 EA PATCH TD SCH (21:49)
[2016-12-07 05:56] LABS: HEMATOCRIT 28.6 % (38.0-47.0); HEMOGLOBIN 9.3 g/dL (12.6-16.3)
[2016-12-07] MEDS: ACETAMINOPHEN 500 MG TAB PO SCH ×3 (06:00→21:32)
[2016-12-07] MEDS: HEPARIN 5,000 UNIT/0.5 ML SYR SC SCH (06:01)
[2016-12-07 06:06] LABS: INR 4.66 (0.83-1.16); PROTIME(PATIENT) 44.9 SEC (12.0-15.0)
[2016-12-07 06:19] LABS: ANION GAP 12 mEq/L (8-16); CALCIUM 8.9 mg/dL (8.5-10.4); CARBON DIOXIDE 15 mEq/l (22-31); CHLORIDE 114 mEq/L (97-110); CREATININE 1.5 mg/dL (0.6-1.0); GLOMERULAR FILTRATION RATE 33; GLUCOSE 283 mg/dL (70-100); SODIUM 141 mEq/L (134-144)
[2016-12-07] MEDS: SENNOSIDES/DOCUSATE SODIUM TAB PO SCH ×2 (09:24→21:32)
[2016-12-07] MEDS: ENALAPRIL MALEATE 10 MG TAB PO SCH (09:24)
[2016-12-07] MEDS: CHOLECALCIFEROL VIT D3 2,000 UNITS TAB/CAP PO SCH (09:24)
[2016-12-07] MEDS: CARVEDILOL 3.125 MG TAB PO SCH (09:24)
[2016-12-07] MEDS: FUROSEMIDE 40 MG TAB PO SCH (09:24)
[2016-12-07] MEDS: CYANO/VITAMIN B12 1000 MCG TAB PO SCH (09:24)
[2016-12-07] MEDS: LIDOCAINE 5% 1 EA PATCH TD SCH (09:25)
[2016-12-07] MEDS: LEVOTHYROXINE 100 MCG TAB PO SCH (09:33)
[2016-12-07] MEDS: INSULIN LISPRO 100 UNIT/ML SC SCH ×3 (10:34→17:59)
[2016-12-07] MEDS ORDERED: INSULIN GLARGINE 100 UNITS/ML SYRINGE SC SCH (14:59)
[2016-12-07] MEDS ORDERED: BISACODYL 5 MG EC TAB PO ONE (15:00)
[2016-12-07] MEDS ORDERED: BISACODYL 5 MG EC TAB PO PRN (15:00)
--- NOTE | 2016-12-07 15:38 | HOSPPROG ---
Hospitalist Progress Note Assessment/Plan: Assessment: 81 yo F p/w acute hip fracture s/p fall Plan: # acute hip and hand fractures on left- patient s/p intraoperative fixation POD #4 - decreased dose of oxy IR, reduced tramadol dosage per patient request - PT/OT/plan for [facility] for rehab - most appropriate choice for DVT ppx is coumadin, better than using DOAC or lovenox - 50% WB per Dr. Ellington notes # chronic systolic heart failure- clinically compensated- oxygen saturations 97 % on 2 L - increase coreg 6.25 - restarted lasix # coronary artery disease- patient without chest pain complaints- EKG without acute changes - continue aspirin, statin, beta-ena # GERARDO on CKD Stage III- creatinine 2.7-> 1.9, likely 2/2 hypovolemia as outpt - restarted lasix and ACEi, monitor Cr - currently at baseline # Carotid Stenosis- her renal function is presently at baseline and unlikely to get better, so risk / benefit of performing additional CTA imaging should be considered to determine if that stenosis is relevant, will it ultimately lead to a surgery # diabetes mellitus- increasing hyperglycemia w/ Ensure intake (does not find Glucerna palatable), counseled daughter that the most effective way to avoid malnutrition in her is to encourage a PO supplement she likes, and treat the resultant hyperglycemia w/ lantus/meal insulin - increase lantus to 10u tonight, gauge effect, continue uptitrating # coagulopathy 2/2 coumadin- receiving for DVT ppx, INR rapidly became supratherapeutic and resulted in one episode of hematemesis today - place on PPI IV bid - hold coumadin today - monitor INR - hold on reversal agent if no further episodes - will likely restart lower dose (2.5mg) on Thursday # hypothyroidism- continue Synthroid # prophylaxis per Orthopedic surgery # diet cardiac # disposition. ADD 12/08 to [facility] if above stable Subjective: counseled patient and daughter extensively regarding malnutrition tx strategies, one episode hematemesis this AM, no BM Objective: Vital Signs Temp Pulse Resp BP Pulse Ox 37.1 C 82 19 124/8 H 96 12/07/16 11:51 12/07/16 11:51 12/07/16 11:51 12/07/16 11:51 12/07/16 11:51 Laboratory Results 12/07/16 05:42 12/07/16 05:42 12/06/16 12/07/16 12/08/16 05:59 05:59 05:59 Intake Total 700 700 Output Total 570 Balance 130 700 PT 44.9 SEC (12.0-15.0) H D 12/07/16 05:42 INR 4.66 (0.83-1.16) H 12/07/16 05:42 - Time Spent With Patient Time Spent with Patient: greater than 35 minutes Time Spent with Patient: Greater than 35 minutes spent on this patients care, greater than 50% of time spent counseling, educating, and coordinating care regarding the above mentioned plan. - Physical Exam Constitutional: no apparent distress, not in pain, chronically ill appearing, No uncomfortable Cardiovascular: regular rate and rhythym, no murmur, rub, or gallop, No edema Respiratory: no respiratory distress, no rales or rhonchi, clear to auscultation Gastrointestinal: normoactive bowel sounds, soft, non-tender abdomen, no palpable masses, No distension Skin: other (no erythema/induration/fluctuance/tenderness at L hip surg site) Psychiatric: interacting appropriately, not anxious, not encephalopathic, thought process linear ICD10 Worksheet Patient Problems: Problems Problem Status Onset Fracture of femoral neck, left Acute Hand fracture, left Acute CKD (chronic kidney disease) 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
[2016-12-07] MEDS: PANTOPRAZOLE SODIUM 40 MG in NS 100 ML IV SCH ×2 (16:24→21:31)
[2016-12-07] MEDS: CARVEDILOL 6.25 MG TAB PO SCH (17:17)
[2016-12-07] MEDS: ATORVASTATIN CALCIUM 40 MG TAB PO SCH (21:32)
[2016-12-07] MEDS: PATCH REMOVAL 1 EA PATCH TD SCH (21:33)
[2016-12-08 04:43] LABS: HEMATOCRIT 26.6 % (38.0-47.0); HEMOGLOBIN 8.8 g/dL (12.6-16.3)
[2016-12-08 05:04] LABS: ANION GAP 10 mEq/L (8-16); CARBON DIOXIDE 15 mEq/l (22-31); CHLORIDE 114 mEq/L (97-110); CREATININE 1.7 mg/dL (0.6-1.0); GLOMERULAR FILTRATION RATE 29; GLUCOSE 199 mg/dL (70-100); POTASSIUM 4.3 mEq/L (3.5-5.2); SODIUM 139 mEq/L (134-144)
[2016-12-08 06:02] LABS: PROTIME(PATIENT) 60.4 SEC (12.0-15.0)
[2016-12-08 06:04] LABS: INR 6.76 (0.83-1.16)
[2016-12-08] MEDS: ACETAMINOPHEN 500 MG TAB PO SCH ×3 (06:24→21:35)
[2016-12-08] MEDS: LEVOTHYROXINE 100 MCG TAB PO SCH (06:24)
[2016-12-08] MEDS: PANTOPRAZOLE SODIUM 40 MG in NS 100 ML IV SCH ×2 (09:00→20:24)
[2016-12-08] MEDS ORDERED: ENALAPRIL MALEATE 2.5 MG TAB PO SCH (10:21)
[2016-12-08 11:49] LABS: BASE EXCESS -7.2 mEq/L (-2.5-2.5); BICARBONATE 16 mEq/L (22-26); PCO2 25 mmHg (34-38); PO2 79 mmHg (65-75); TCO2 17 mEq/L (23-27)
[2016-12-08 11:50] LABS: MEASURED OXYGEN SATURATION 96 % (92-95)
[2016-12-08 12:04] LABS: % IMMATURE GRANULYOCYTES 0.3 % (0.0-1.1); ABSOLUTE IMMATURE GRANULOCYTES 0.03 10^3/uL (0.00-0.10); ABSOLUTE NRBC COUNT 0.02 10^3/uL (0-0.01); ADD DIFF? NO; ADD MORPH? NO; ADD SCAN? NO; ATYPICAL LYMPHOCYTE FLAG 0 (0-99); FRAGMENT RBC FLAG 40 (0-99); HEMATOCRIT 27.6 % (38.0-47.0); HEMOGLOBIN 8.9 g/dL (12.6-16.3); LEFT SHIFT FLG 0 (0-99); LIPEMIA HEMOLYSIS FLAG 80 (0-99); MEAN CELL HEMOGLOBIN 28.8 pg (27.9-34.1); MEAN CELL HEMOGLOBIN CONCENTR. 32.2 g/dL (32.4-36.7); MEAN CELL VOLUME 89.3 fL (81.5-99.8); MEAN PLATELET VOLUME 12.6 fL (8.7-11.7); NRBC-AUTO% 0.2 % (0.0-0.2); PLATELET CLUMPS FLAG 0 (0-99); PLATELET COUNT 185 10^3/uL (150-400); RED BLOOD CELL COUNT 3.09 10^6/uL (4.18-5.33); RED CELL DISTRIBUTION WIDTH 15.8 % (11.5-15.2)
[2016-12-08] MEDS: CHOLECALCIFEROL VIT D3 2,000 UNITS TAB/CAP PO SCH (12:24)
[2016-12-08] MEDS: CARVEDILOL 6.25 MG TAB PO SCH ×2 (12:24→18:40)
[2016-12-08] MEDS: FUROSEMIDE 40 MG TAB PO SCH (12:24)
[2016-12-08] MEDS: CYANO/VITAMIN B12 1000 MCG TAB PO SCH (12:25)
[2016-12-08] MEDS: SODIUM BICARBONATE 650 MG TAB PO SCH ×2 (12:25→20:24)
[2016-12-08] MEDS: SENNOSIDES/DOCUSATE SODIUM TAB PO SCH ×2 (12:25→20:24)
[2016-12-08] MEDS: LIDOCAINE 5% 1 EA PATCH TD SCH (12:26)
[2016-12-08] MEDS: INSULIN LISPRO 100 UNIT/ML SC SCH ×3 (12:26→18:42)
[2016-12-08] MEDS: ENALAPRIL MALEATE 10 MG TAB PO SCH (13:16)
[2016-12-08 14:40] LABS: ALANINE AMINOTRANSFERASE 25 IU/L (9-52); ALBUMIN 2.5 g/dL (3.5-5.0); ALKALINE PHOSPHATASE 72 IU/L (38-126); ASPARTATE AMINOTRANSFERASE 28 IU/L (14-46); BILIRUBIN,TOTAL 0.5 mg/dL (0.1-1.4); TOTAL PROTEIN 4.7 g/dL (6.3-8.2)
[2016-12-08] MEDS: ATORVASTATIN CALCIUM 40 MG TAB PO SCH (20:24)
--- NOTE | 2016-12-08 21:13 | HOSPPROG ---
Hospitalist Progress Note Assessment/Plan: Assessment: 81 yo F p/w acute hip fracture s/p fall, c/b acute encephalopathy Plan: # acute encephalopathy- evidenced by global brain dysfunction characterized as unresponsiveness, all of which is an acute change from baseline, unclear etiology - further w/u indicated w/ HCT to r/o ICH, ABG to r/o hypercapnia, CBC/CMP - unresponsive to painful stimuli # acute hip and hand fractures on left- patient s/p intraoperative fixation POD #5 - decreased dose of oxy IR, reduced tramadol dosage per patient request - PT/OT/plan for [facility] for rehab - most appropriate choice for DVT ppx is coumadin, better than using DOAC or lovenox - 50% WB per Dr. Ellington notes # chronic systolic heart failure- clinically compensated- oxygen saturations 97 % on 2 L - increased coreg 6.25 - restarted lasix - stopped enalapril given low BPs # coronary artery disease- patient without chest pain complaints- EKG without acute changes - continue aspirin, statin, beta-ena # GERARDO on CKD Stage III- creatinine 2.7-> 1.9, likely 2/2 hypovolemia as outpt - restarted lasix, monitor Cr - currently at baseline # Carotid Stenosis- her renal function is presently at baseline and unlikely to get better, so risk / benefit of performing additional CTA imaging should be considered to determine if that stenosis is relevant, will it ultimately lead to a surgery # diabetes mellitus- increasing hyperglycemia w/ Ensure intake (does not find Glucerna palatable), counseled daughter that the most effective way to avoid malnutrition in her is to encourage a PO supplement she likes, and treat the resultant hyperglycemia w/ lantus/meal insulin - increase lantus to 14u tonight, gauge effect, continue uptitrating # coagulopathy 2/2 coumadin- receiving for DVT ppx, INR rapidly became supratherapeutic and resulted in one episode of hematemesis today - placed on PPI IV bid, adjust to PO - hold coumadin today - monitor INR - hold on reversal agent if no further episodes - will likely restart lower dose (2mg) on Thursday # hypothyroidism- continue Synthroid # prophylaxis per Orthopedic surgery # diet cardiac # disposition. ADD 12/09 to [facility] if above stable Subjective: patient unresponsive this AM, had a very stressful, interactive day w/ daughter yesterday, no BMs Objective: Vital Signs Temp Pulse Resp BP Pulse Ox 37.1 C 82 16 89/60 L 94 12/08/16 20:00 12/08/16 20:00 12/08/16 20:00 12/08/16 20:40 12/08/16 20:00 Laboratory Results 12/08/16 03:42 12/08/16 03:42 12/07/16 12/08/16 12/09/16 05:59 05:59 05:59 Intake Total 700 475 440 Balance 700 475 440 PT 60.4 SEC (12.0-15.0) H D 12/08/16 03:42 INR 6.76 (0.83-1.16) H* 12/08/16 03:42 - Pending Discharge Pending Discharge Within 24 Hours: Yes Pending Discharge Date: 12/09/16 Pending Discharge Time: 11:00 - Physical Exam Constitutional: no apparent distress, not in pain, chronically ill appearing, cachectic Eyes: PERRL, anicteric sclera, other (deviated upwards, not tracking) Cardiovascular: regular rate and rhythym, no murmur, rub, or gallop, No irregularly irregular, No edema Respiratory: no respiratory distress, no rales or rhonchi, clear to auscultation Gastrointestinal: normoactive bowel sounds, soft, non-tender abdomen, no palpable masses, No distension Skin: other (no erythema/induration/fluctuance/tenderness at left hip surg site) Neurologic: other (not moving limbs volitionally, but RUE is not flaccid) Psychiatric: encephalopathic, other (no response to tactile, verbal, or painful stimuli) ICD10 Worksheet Patient Problems: Problems Problem Status Onset Fracture of femoral neck, left Acute Hand fracture, left Acute CKD (chronic kidney disease) 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
[2016-12-08] MEDS: INSULIN GLARGINE 100 UNITS/ML SYRINGE SC SCH (21:34)
[2016-12-08] MEDS: PATCH REMOVAL 1 EA PATCH TD SCH (21:36)
[2016-12-09 04:23] LABS: % IMMATURE GRANULYOCYTES 0.5 % (0.0-1.1); ABSOLUTE IMMATURE GRANULOCYTES 0.04 10^3/uL (0.00-0.10); ADD DIFF? NO; ADD MORPH? NO; ADD SCAN? NO; ATYPICAL LYMPHOCYTE FLAG 0 (0-99); FRAGMENT RBC FLAG 20 (0-99); HEMATOCRIT 23.4 % (38.0-47.0); HEMOGLOBIN 7.4 g/dL (12.6-16.3); LEFT SHIFT FLG 0 (0-99); LIPEMIA HEMOLYSIS FLAG 80 (0-99); MEAN CELL HEMOGLOBIN 28.5 pg (27.9-34.1); MEAN CELL HEMOGLOBIN CONCENTR. 31.6 g/dL (32.4-36.7); MEAN PLATELET VOLUME 12.7 fL (8.7-11.7); PLATELET CLUMPS FLAG 0 (0-99); PLATELET COUNT 164 10^3/uL (150-400)
[2016-12-09 04:46] LABS: ANION GAP 7 mEq/L (8-16); CALCIUM 8.5 mg/dL (8.5-10.4); CARBON DIOXIDE 18 mEq/l (22-31); CHLORIDE 112 mEq/L (97-110); CREATININE 1.8 mg/dL (0.6-1.0); GLOMERULAR FILTRATION RATE 27; GLUCOSE 154 mg/dL (70-100); POTASSIUM 4.2 mEq/L (3.5-5.2); SODIUM 137 mEq/L (134-144)
[2016-12-09 05:22] LABS: PROTIME(PATIENT) 68.4 SEC (12.0-15.0)
[2016-12-09 05:23] LABS: INR 7.89 (0.83-1.16)
[2016-12-09] MEDS: LEVOTHYROXINE 100 MCG TAB PO SCH (06:28)
[2016-12-09] MEDS: ACETAMINOPHEN 500 MG TAB PO SCH ×3 (06:29→21:49)
[2016-12-09] MEDS ORDERED: PHYTONADIONE 2.5 MG/2.5 ML ORAL UDL PO ONE (08:29)
[2016-12-09] MEDS ORDERED: CARVEDILOL 3.125 MG TAB PO SCH (08:30)
[2016-12-09] MEDS: INSULIN LISPRO 100 UNIT/ML SC SCH ×3 (08:34→18:45)
[2016-12-09] MEDS ORDERED: MAGNESIUM CITRATE 300 ML BOTTLE PO ONE (09:00)
[2016-12-09] MEDS: PANTOPRAZOLE SODIUM 40 MG in NS 100 ML IV SCH ×2 (10:01→21:37)
[2016-12-09] MEDS: SODIUM BICARBONATE 650 MG TAB PO SCH ×2 (10:02→21:37)
[2016-12-09] MEDS: LIDOCAINE 5% 1 EA PATCH TD SCH (10:02)
[2016-12-09] MEDS: CYANO/VITAMIN B12 1000 MCG TAB PO SCH (10:03)
[2016-12-09] MEDS: CHOLECALCIFEROL VIT D3 2,000 UNITS TAB/CAP PO SCH (10:03)
[2016-12-09] MEDS: SENNOSIDES/DOCUSATE SODIUM TAB PO SCH ×2 (10:03→21:38)
[2016-12-09] MEDS: CARVEDILOL 6.25 MG TAB PO SCH (10:05)
--- NOTE | 2016-12-09 14:16 | HOSPPROG ---
Hospitalist Progress Note Assessment/Plan: Assessment: 81 yo F p/w acute hip fracture s/p fall, c/b acute encephalopathy and rising INR (for dvt ppx) Plan: # acute encephalopathy- evidenced by global brain dysfunction characterized as unresponsiveness, all of which is an acute change from baseline, unclear etiology, but suspect metabolic w/ acidosis, toxic w/ pain Rx - HCT neg ICH, eventually responsive, now back at baseline AAOx3 # anemia-no e/o blood loss, had one dark BM last PM, but did not overtly appear melanotic, but is at risk w/ rising INR, likely has a component of chronic inflam disease and acute illness - symptomatically weak today, give 1u PRBC w/ 20mg IV lasix, then recheck H/H - f/u Hgb in AM # acute hip and hand fractures on left- patient s/p intraoperative fixation POD #6 - cont low dose oxy IR, low dose tramadol per patient request - most appropriate choice for DVT ppx is coumadin, better than using DOAC or lovenox, albeit INR anabel much faster than anticipated - 50% WB per Dr. Ellington notes - PT/OT/plan for [facility] for rehab # chronic systolic heart failure- clinically compensated- oxygen saturations 97 % on 2 L - reduced coreg to 1.65 given low BPs (70-80s) - holding home lasix and enalapril given low BPs today # coronary artery disease- patient without chest pain complaints, continue aspirin, statin, beta-ena # GERARDO on CKD Stage III- creatinine 2.7-> 1.8, likely 2/2 hypovolemia as outpt - baseline around 2, resolved # Carotid Stenosis- her renal function is presently at baseline and unlikely to get better, so risk / benefit of performing additional CTA imaging should be considered to determine if that stenosis is relevant and will it ultimately lead to a surgery - would recommend outpt trial of rehab prior to re-investigating, as her functional status may not recover to the extent that she would tolerate surg procedure # diabetes mellitus- increasing hyperglycemia w/ Ensure intake (does not find Glucerna palatable), counseled daughter that the most effective way to avoid malnutrition in her is to encourage a PO supplement she likes, and treat the resultant hyperglycemia w/ lantus/meal insulin - increase lantus to 14u tonight, gauge effect, continue uptitrating - dietary consult recs appreciated # coagulopathy 2/2 coumadin- receiving for DVT ppx, INR rapidly became supratherapeutic and resulted in and episode of hematemesis, as well as dark stool and notable anemia - placed on PPI IV bid, adjust to PO if Hgb stable tomorrow - continue holding coumadin today - given that it is rising dangerously and now she is more anemic, will give 2.5mg Vit K once, repeat INR in AM - if decision is made to use coumadin for DVT ppx, would rec very low dose (1 or 2mg, with outpt INR close monitoring), since she anabel to the present levels with 4 and 3mg # hypothyroidism- continue Synthroid # prophylaxis on coumadin # diet cardiac # disposition. ADD 12/10 to [facility] if above stable, counseled patient and her daughter about the medical issues outlined above, answered questions about blood transfusions, discussed the complex adjustment of BP Rx in setting of low EF Subjective: dark BM last night, no abd pain, patient feels like she is at her cognitive baseline Objective: Vital Signs Temp Pulse Resp BP Pulse Ox 36.7 C 67 16 78/47 L 93 12/09/16 11:49 12/09/16 11:49 12/09/16 11:49 12/09/16 11:49 12/09/16 11:49 Laboratory Results 12/09/16 03:30 12/09/16 03:30 12/08/16 12/09/16 12/10/16 05:59 05:59 05:59 Intake Total 475 790 Balance 475 790 PT 68.4 SEC (12.0-15.0) H D 12/09/16 03:30 INR 7.89 (0.83-1.16) H* 12/09/16 03:30 - Time Spent With Patient Time Spent with Patient: greater than 35 minutes Time Spent with Patient: Greater than 35 minutes spent on this patients care, greater than 50% of time spent counseling, educating, and coordinating care regarding the above mentioned plan. - Physical Exam Constitutional: no apparent distress, not in pain, chronically ill appearing, No uncomfortable Eyes: PERRL, anicteric sclera, EOMI Cardiovascular: systolic murmur (I/ at all valves), No irregularly irregular, No tachycardia, No edema Respiratory: no respiratory distress, no rales or rhonchi, clear to auscultation Gastrointestinal: normoactive bowel sounds, soft, non-tender abdomen, no palpable masses, No distension Neurologic: AAOx3, sensation intact bilaterally, No facial droop Psychiatric: not anxious, thought process linear, flat affect, other ( concentration 4/7, lethargic but interacts to voice), No agitated ICD10 Worksheet Patient Problems: Problems Problem Status Onset Fracture of femoral neck, left Acute Hand fracture, left Acute CKD (chronic kidney disease) 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
--- NOTE | 2016-12-09 15:32 | ASMTCMCOM ---
CM Note CM Note Notes: 12/09/2016 Case Management Note: Spoke w/RN, reviewed chart. Inpatient rehab declined patient. Pt not medically stable for d/c. Met w/Ruthann from [facility] today and updated on pt status. Case Mangement d/c poc: remains [facility] when medically cleared. Case Management to follow. 12/06/2016 Case Management Note Updated [facility] with new records. Case Management planning for tentative d/c Thursday. Pt will d/c to [facility] via wheelchair. Case Management to follow. Date Signed: 12/09/2016 03:31 PM Electronically Signed By:Alicia Grace RN
[2016-12-09] MEDS ORDERED: FUROSEMIDE 20 MG/2 ML VIAL IVP ONE ×2 (16:00→18:45)
[2016-12-09] MEDS: CARVEDILOL 3.125 MG TAB PO SCH (18:46)
[2016-12-09] MEDS: PATCH REMOVAL 1 EA PATCH TD SCH (21:37)
[2016-12-09] MEDS: ATORVASTATIN CALCIUM 40 MG TAB PO SCH (21:37)
[2016-12-09] MEDS: INSULIN GLARGINE 100 UNITS/ML SYRINGE SC SCH (21:39)
[2016-12-10 05:22] LABS: % IMMATURE GRANULYOCYTES 0.4 % (0.0-1.1); ABSOLUTE IMMATURE GRANULOCYTES 0.04 10^3/uL (0.00-0.10); ADD DIFF? NO; ADD MORPH? NO; ADD SCAN? NO; ATYPICAL LYMPHOCYTE FLAG 10 (0-99); FRAGMENT RBC FLAG 20 (0-99); HEMATOCRIT 27.1 % (38.0-47.0); HEMOGLOBIN 9.1 g/dL (12.6-16.3); LEFT SHIFT FLG 0 (0-99); LIPEMIA HEMOLYSIS FLAG 80 (0-99); MEAN CELL HEMOGLOBIN 29.7 pg (27.9-34.1); MEAN CELL HEMOGLOBIN CONCENTR. 33.6 g/dL (32.4-36.7); MEAN CELL VOLUME 88.6 fL (81.5-99.8); MEAN PLATELET VOLUME 12.1 fL (8.7-11.7); PLATELET CLUMPS FLAG 10 (0-99); PLATELET COUNT 189 10^3/uL (150-400); RED BLOOD CELL COUNT 3.06 10^6/uL (4.18-5.33); RED CELL DISTRIBUTION WIDTH 15.8 % (11.5-15.2)
[2016-12-10 05:31] LABS: INR 2.24 (0.83-1.16)
[2016-12-10 05:39] LABS: ANION GAP 8 mEq/L (8-16); CALCIUM 8.6 mg/dL (8.5-10.4); CARBON DIOXIDE 20 mEq/l (22-31); CHLORIDE 111 mEq/L (97-110); CREATININE 1.6 mg/dL (0.6-1.0); GLOMERULAR FILTRATION RATE 31; GLUCOSE 84 mg/dL (70-100); POTASSIUM 3.7 mEq/L (3.5-5.2); SODIUM 139 mEq/L (134-144)
[2016-12-10] MEDS: LEVOTHYROXINE 100 MCG TAB PO SCH (06:16)
[2016-12-10] MEDS: ACETAMINOPHEN 500 MG TAB PO SCH ×3 (06:17→20:49)
--- NOTE | 2016-12-10 08:23 | HOSPPROG ---
Hospitalist Progress Note Assessment/Plan: Assessment: 81 yo F p/w acute hip fracture s/p fall, c/b acute encephalopathy. Hospital course complicated by rising INR (for dvt ppx) requiring Vitamin K Plan: # acute encephalopathy- suspect toxic metabolic with acidosis / pain meds. Head CT neg for ICH, now back to baseline. # anemia- had one dark BM last PM, but did not appear melanotic. At risk w/ rising INR, likely has a component of chronic inflam disease and acute illness. S/P 1 u prbc's yesterday, hgb stable this am at 9. - cont to hold coumadin, follow # acute hip and hand fractures on left - patient s/p intraoperative fixation POD #7 - cont low dose oxy IR, low dose tramadol for pain - 50% WB per Dr. Ellington notes - PT/OT/plan for [facility] for rehab # chronic systolic heart failure- clinically compensated- oxygen saturations 94 % on room air. Hypotensive this am after receiving IV Lasix last night. - SBP improved with small NS bolus - holding home lasix, coreg and enalapril given low BPs today # coronary artery disease- patient without chest pain complaints, continue aspirin, statin, beta-ena held as above - aim to maintain hgb >8 # GERARDO on CKD Stage III- creatinine 2.7-> 1.8, likely 2/2 hypovolemia as outpt. baseline around 2, resolved # Carotid Stenosis- ?recent u/s or CTA (avoid latter due to CKD) - consider functional status prior to surgical intervention # diabetes mellitus- up-titrated insulin for glycemic control - dietary consult recs appreciated # coagulopathy 2/2 coumadin- receiving for DVT ppx, better than using DOAC or lovenox. However, INR rapidly became supratherapeutic and resulted in an episode of hematemesis, as well as dark stool and notable anemia s/p 2.5 mg Vit K and 1 u prbc's - change to PO PPI - continue holding coumadin - will discuss pplx options with ortho # hypothyroidism- continue Synthroid # prophylaxis, INR >2 with recent coumadin doses # diet cardiac # disposition. [facility], likely d/c 1-2 days Subjective: Pt feels well. Denies hematemesis or BRBPR. RN reported dark stool , but not black or melanotic last night. Hypotensive this am. No symptoms. No CP, SOB or dizziness. Pain controlled. Objective: Vital Signs Temp Pulse Resp BP Pulse Ox 36.7 C 70 17 89/55 L 94 12/10/16 07:25 12/10/16 07:25 12/10/16 07:25 12/10/16 07:25 12/10/16 07:25 Laboratory Results 12/10/16 03:48 12/10/16 03:48 12/09/16 12/10/16 12/11/16 05:59 05:59 05:59 Intake Total 1290 2009 Balance 1290 2009 PT 25.0 SEC (12.0-15.0) H D 12/10/16 03:48 INR 2.24 (0.83-1.16) H 12/10/16 03:48 - Physical Exam Constitutional: no apparent distress Eyes: PERRL Ears, Nose, Mouth, Throat: moist mucous membranes Cardiovascular: regular rate and rhythym Respiratory: no respiratory distress, clear to auscultation Gastrointestinal: normoactive bowel sounds, soft, non-tender abdomen Skin: warm Musculoskeletal: full muscle strength Neurologic: AAOx3 Psychiatric: interacting appropriately ICD10 Worksheet Patient Problems: Problems Problem Status Onset CHF (congestive heart failure) Acute CKD (chronic kidney disease) 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
[2016-12-10] MEDS: CYANO/VITAMIN B12 1000 MCG TAB PO SCH (08:25)
[2016-12-10] MEDS: SODIUM BICARBONATE 650 MG TAB PO SCH ×2 (08:25→20:50)
[2016-12-10] MEDS: CARVEDILOL 3.125 MG TAB PO SCH (08:26)
[2016-12-10] MEDS: CHOLECALCIFEROL VIT D3 2,000 UNITS TAB/CAP PO SCH (08:27)
[2016-12-10] MEDS: LIDOCAINE 5% 1 EA PATCH TD SCH (08:36)
[2016-12-10] MEDS: SENNOSIDES/DOCUSATE SODIUM TAB PO SCH ×2 (08:37→23:41)
[2016-12-10] MEDS: PANTOPRAZOLE SODIUM 40 MG TAB PO SCH ×3 (08:40→20:50)
[2016-12-10] MEDS: INSULIN LISPRO 100 UNIT/ML SC SCH ×3 (09:37→18:36)
--- NOTE | 2016-12-10 14:10 | ASMTCMCOM ---
CM Note CM Note Notes: CM spoke w/ Jerad Rayo RN and Van, RN regarding d/c POC. CM scheduled pt to f/u with Dr. Ellington for 12/18/16 @ 2PM. CM inputted it into [facility]. Pt will discharge to [facility] when medically stable. CM to follow. Date Signed: 12/10/2016 02:09 PM Electronically Signed By:HARIKA Barker
[2016-12-10] MEDS ORDERED: NS 250 ML IV ONE (16:09)
[2016-12-10 16:43] LABS: HEMATOCRIT 28.9 % (38.0-47.0); HEMOGLOBIN 9.7 g/dL (12.6-16.3)
[2016-12-10] MEDS: INSULIN GLARGINE 100 UNITS/ML SYRINGE SC SCH (20:50)
[2016-12-10] MEDS: ATORVASTATIN CALCIUM 40 MG TAB PO SCH (20:50)
[2016-12-10] MEDS: PATCH REMOVAL 1 EA PATCH TD SCH (23:42)
[2016-12-11] MEDS: LEVOTHYROXINE 100 MCG TAB PO SCH (06:10)
[2016-12-11] MEDS: ACETAMINOPHEN 500 MG TAB PO SCH ×2 (06:10→13:26)
[2016-12-11 08:24] VITALS: TEMP 97.8
[2016-12-11] MEDS: INSULIN LISPRO 100 UNIT/ML SC SCH ×2 (10:07→13:29)
[2016-12-11] MEDS: LIDOCAINE 5% 1 EA PATCH TD SCH (10:09)
[2016-12-11] MEDS: CYANO/VITAMIN B12 1000 MCG TAB PO SCH (10:10)
[2016-12-11] MEDS: PANTOPRAZOLE SODIUM 40 MG TAB PO SCH (10:10)
[2016-12-11] MEDS: SODIUM BICARBONATE 650 MG TAB PO SCH (10:10)
[2016-12-11] MEDS: CHOLECALCIFEROL VIT D3 2,000 UNITS TAB/CAP PO SCH (10:10)
[2016-12-11] MEDS: SENNOSIDES/DOCUSATE SODIUM TAB PO SCH (10:11)
[2016-12-11 11:05] LABS: % IMMATURE GRANULYOCYTES 0.5 % (0.0-1.1); ABSOLUTE IMMATURE GRANULOCYTES 0.05 10^3/uL (0.00-0.10); ADD DIFF? NO; ADD MORPH? NO; ADD SCAN? NO; ATYPICAL LYMPHOCYTE FLAG 10 (0-99); FRAGMENT RBC FLAG 20 (0-99); HEMATOCRIT 30.8 % (38.0-47.0); HEMOGLOBIN 10.2 g/dL (12.6-16.3); LEFT SHIFT FLG 0 (0-99); LIPEMIA HEMOLYSIS FLAG 80 (0-99); MEAN CELL HEMOGLOBIN 29.7 pg (27.9-34.1); MEAN CELL HEMOGLOBIN CONCENTR. 33.1 g/dL (32.4-36.7); MEAN CELL VOLUME 89.5 fL (81.5-99.8); MEAN PLATELET VOLUME 11.7 fL (8.7-11.7); PLATELET CLUMPS FLAG 20 (0-99); PLATELET COUNT 233 10^3/uL (150-400); RED BLOOD CELL COUNT 3.44 10^6/uL (4.18-5.33); RED CELL DISTRIBUTION WIDTH 15.9 % (11.5-15.2)
[2016-12-11 11:12] LABS: INR 1.91 (0.83-1.16)
[2016-12-11 11:28] VITALS: BP 95/67; PULSE 73; RESP 20; O2SAT 94
[2016-12-11 11:29] LABS: ANION GAP 11 mEq/L (8-16); CALCIUM 8.3 mg/dL (8.5-10.4); CARBON DIOXIDE 21 mEq/l (22-31); CHLORIDE 106 mEq/L (97-110); CREATININE 1.4 mg/dL (0.6-1.0); GLOMERULAR FILTRATION RATE 36; GLUCOSE 245 mg/dL (70-100); POTASSIUM 4.1 mEq/L (3.5-5.2); SODIUM 138 mEq/L (134-144)
--- NOTE | 2016-12-11 12:14 | PDIAF ---
- Diagnosis Diagnosis: Hip fracture, heart failure Code Status: Limited Resuscitation - Medication Management Discharge Medications: Medications to Continue on Transfer Atorvastatin Calcium [Lipitor 40 mg (*)] 80 mg PO HS 07/23/16 [Last Taken ] Cholecalciferol Vit D3 [Vitamin D3 (*)] 2,000 units PO DAILY 07/23/16 [Last Taken 12/01/16] Cyanocobalamin [Vitamin B12 (*)] 1,000 mcg PO DAILY 07/23/16 [Last Taken ] Herbals/Supplements -Info Only 1 ea PO DAILY 07/23/16 [Last Taken Unknown] Levothyroxine [Synthroid 100 mcg (*)] 100 mcg PO DAILY06 12/02/16 [Last Taken ] Omeprazole [Prilosec 20 mg] 20 mg PO DAILY PRN 12/02/16 [Last Taken Unknown] Acetaminophen [Tylenol ES 500 mg (*)] 1,000 mg PO Q8 tab 12/11/16 [Last Taken Unknown] Bisacodyl [Bisacodyl (*)] 5 mg PO PRN PRN tab 12/11/16 [Last Taken Unknown] Enoxaparin [Lovenox] 30 mg SC DAILY #13 syr 12/11/16 [Last Taken Unknown] Furosemide [Lasix 40 MG (*)] 20 mg PO DAILY #30 tab 12/11/16 [Last Taken Unknown ] Insulin Glargine,Hum.rec.anlog [Lantus Solostar] 14 unit SQ HS #30 ml 12/11/16 [ Last Taken Unknown] Insulin Lispro [humALOG LISPRO 100 units/ml (*)] 3 unit SC AC unit 12/11/16 [ Last Taken Unknown] Polyethylene Glycol 3350 [Miralax 17 gm (*)] 17 gm PO DAILY PRN pkt 12/11/16 [ Last Taken Unknown] Sennosides/Docusate Sodium [Senokot-S] 1 - 2 tab PO BID tab 12/11/16 [Last Taken Unknown] traMADol [Ultram 50 mg (*)] 25 mg PO Q6H PRN #60 tab 12/11/16 [Last Taken Unknown] Discharge Medications: Refer to the Discharge Home Medication list for PRN reason. PICC Care - Routine: N/A - Orders Services needed: Registered Nurse, Physical Therapy, Occupational Therapy Diet Recommendation: no restrictions on diet Diet Texture: Regular Texture Diet, Thin Liquids, Meds Whole w/Liquids, Meds Whole in Puree, Meds Crushed in Puree Wound Care Instructions: post-op wound care per protocol Activity/Weight Bearing Restrictions: 50% weight bearing LLE until re- evaluation by ortho 12/18 Additional: Resume daily ASA 81 mg po daily in 1 week if no evidence of bleeding - Labs/Radiology BMP Date: 12/15/16 (results to celine REVELES) PT/INR Date: 12/12/16 (results to celine REVELES) - Follow Up Care Current Providers and Referrals: Luis Ellington MD [Medical Doctor] - 12/18/16 2:00 pm Patient,NotPresent [Unknown] - 12/18/16 2:00 pm (Dr. Ellington [address], [address] [facility] [address])
--- NOTE | 2016-12-11 12:19 | PDIAF ---
- Diagnosis Diagnosis: Hip fracture, heart failure Code Status: Limited Resuscitation - Medication Management Discharge Medications: Medications to Continue on Transfer Atorvastatin Calcium [Lipitor 40 mg (*)] 80 mg PO HS 07/23/16 [Last Taken ] Cholecalciferol Vit D3 [Vitamin D3 (*)] 2,000 units PO DAILY 07/23/16 [Last Taken 12/01/16] Cyanocobalamin [Vitamin B12 (*)] 1,000 mcg PO DAILY 07/23/16 [Last Taken ] Herbals/Supplements -Info Only 1 ea PO DAILY 07/23/16 [Last Taken Unknown] Levothyroxine [Synthroid 100 mcg (*)] 100 mcg PO DAILY06 12/02/16 [Last Taken ] Omeprazole [Prilosec 20 mg] 20 mg PO DAILY PRN 12/02/16 [Last Taken Unknown] Acetaminophen [Tylenol ES 500 mg (*)] 1,000 mg PO Q8 tab 12/11/16 [Last Taken Unknown] Bisacodyl [Bisacodyl (*)] 5 mg PO PRN PRN tab 12/11/16 [Last Taken Unknown] Enoxaparin [Lovenox] 30 mg SC DAILY #13 syr 12/11/16 [Last Taken Unknown] Furosemide [Lasix 40 MG (*)] 20 mg PO DAILY #30 tab 12/11/16 [Last Taken Unknown ] Insulin Glargine,Hum.rec.anlog [Lantus Solostar] 14 unit SQ HS #30 ml 12/11/16 [ Last Taken Unknown] Insulin Lispro [humALOG LISPRO 100 units/ml (*)] 3 unit SC AC unit 12/11/16 [ Last Taken Unknown] Polyethylene Glycol 3350 [Miralax 17 gm (*)] 17 gm PO DAILY PRN pkt 12/11/16 [ Last Taken Unknown] Sennosides/Docusate Sodium [Senokot-S] 1 - 2 tab PO BID tab 12/11/16 [Last Taken Unknown] traMADol [Ultram 50 mg (*)] 25 mg PO Q6H PRN #60 tab 12/11/16 [Last Taken Unknown] Discharge Medications: Refer to the Discharge Home Medication list for PRN reason. PICC Care - Routine: N/A - Orders Services needed: Registered Nurse, Physical Therapy, Occupational Therapy Diet Recommendation: no restrictions on diet Diet Texture: Regular Texture Diet, Thin Liquids, Meds Whole w/Liquids, Meds Whole in Puree, Meds Crushed in Puree Wound Care Instructions: post-op wound care per protocol Activity/Weight Bearing Restrictions: 50% weight bearing LLE until re- evaluation by ortho 12/18 Additional: Resume daily ASA 81 mg po daily in 1 week if no evidence of bleeding. Lovenox 30 mg SC daily for PPLX for 13 more days, then stop - Labs/Radiology BMP Date: 12/15/16 (results to celine REVELES) PT/INR Date: 12/12/16 (results to celine REVELES) - Follow Up Care Current Providers and Referrals: Luis Ellington MD [Medical Doctor] - 12/18/16 2:00 pm Patient,NotPresent [Unknown] - 12/18/16 2:00 pm (Dr. Ellington [address], [address] [place] [id number])
--- NOTE | 2016-12-11 16:40 | ASDISCHSUM ---
Discharge Information Plan Status:SNF Medically Cleared to Leave:12/11/2016 Discharge Date:12/11/2016 03:58 PM CM D/C Disposition:Assisted Facility ADT D/C Disposition:Assisted Facility Projected Discharge Date:12/11/2016 12:00 AM Transportation at D/C:Wheelchair Van Discharge Delay Reason: Follow-Up Date:12/11/2016 12:00 AM Discharge Slot: Final Diagnosis: Placement Information Referral Type:*Residential/SNF Referral ID:[id number] Provider Name:[facility] Address 1:[address] Address 2: City:[place] Selection Factors: State:[place] Patient Contact Information Contact Name:JAMAAL Relationship:Daughter Address: Work Phone: City: [facility] Phone: State/Zip Code:[place] Email: Financial Information Financial Class: Primary Plan Desc:MEDICARE INPATIENT Primary Plan Number:[id number] Secondary Plan Desc: OUT [facility] Secondary Plan Number:[id number] Assessment Information [facility] CM Progress Note CM Note CM Note Notes: Patient admitted for hip fracture and hand fracture after having a syncopal event and fall this morning. Patient's daughter, Alejandra, at bedside in the ED and lives with patient. Patient was recently admitted to [facility] in July 2016 (related to syncope, cardiac reasons) and discharged to [facility]. Anticipate patient will have PT/OT evaluations. Exact DC needs unknown at this time. CM to follow. Date Signed: 12/02/2016 03:03 PM Electronically Signed By:Marla Villarreal RN [facility] CM Progress Note CM Note CM Note Notes: CM met w/ pt and daughter for dispo planning. PT is recommending SNF. CM still awaiting recommendation from OT. Pt and daughter would like a referral made to [facility]. Pt was at [facility] recently and had a positive experience. CM faxed over referral to [facility]. CM to follow. Date Signed: 12/04/2016 02:26 PM Electronically Signed By:HARIKA Barker [facility] CM Progress Note CM Note CM Note Notes: 12/06/2016 Case Management Note Updated [facility] with new records. Case Management planning for tentative d/c Thursday. Pt will d/c to [facility] via wheelchair. Case Management to follow. Date Signed: 12/06/2016 02:23 PM Electronically Signed By:Alicia Grace RN [facility] CM Progress Note CM Note CM Note Notes: 12/09/2016 Case Management Note: Spoke w/RN, reviewed chart. Inpatient rehab declined patient. Pt not medically stable for d/c. Met w/Ruthann from [facility] today and updated on pt status. Case Mangement d/c poc: remains [facility] when medically cleared. Case Management to follow. 12/06/2016 Case Management Note Updated [facility] with new records. Case Management planning for tentative d/c Thursday. Pt will d/c to [facility] via wheelchair. Case Management to follow. Date Signed: 12/09/2016 03:31 PM Electronically Signed By:Alicia Grace RN [facility] CM Progress Note CM Note CM Note Notes: CM spoke w/ Jerad Rayo RN and STEVE Araujo regarding d/c POC. CM scheduled pt to f/u with Dr. Ellington for 12/18/16 @ 2PM. CM inputted it into [facility]. Pt will discharge to [facility] when medically stable. CM to follow. Date Signed: 12/10/2016 02:09 PM Electronically Signed By:HARIKA Barker Intervention Information Intervention Type:*Incorrect Registration Date of Service:12/03/2016 08:51 AM Patient Type:Observation Staff Member:STEVE Hearn, Adelina Hours: Discipline: Severity: Comment: Intervention Type:*IM-Signed Date of Service:12/11/2016 10:59 AM Patient Type:Inpatient Staff Member:Antonina Siddiqi Hours: Discipline: Severity: Comment:
--- NOTE | 2016-12-11 18:36 | GDS ---
[f rep st] DISCHARGE SUMMARY DISCHARGE DIAGNOSES: 1. Left hip fracture, status post operative fixation. 2. Left hand fracture. 3. Chronic systolic heart failure. 4. Acute kidney injury, improved with creatinine back to baseline at discharge. 5. Diabetes mellitus. 6. Anemia, status post 1 unit of packed red blood cells. 7. Acute encephalopathy, resolved. 8. Coagulopathy, secondary to Coumadin, resolving. PRECISION MACHINIST: Luis Ellington MD, orthopedic surgery. HISTORY: For details, please see the history and physical dated December 02, 2016. In brief, the sha garibay is an 81-year-old female with a history of coronary artery disease, hypertension, and diabetes, who presented to the emergency department with mechanical fall. She was found to have acute left hi p fracture, was admitted to the hospital for surgical repair. The medicine team was consulted for pr eoperative cardiac evaluation, and we assumed her care given her prolonged hospitalization. HOSPITAL COURSE: Patient was admitted to PCU. She had an indeterminate troponin on arrival in [facility] of acute kidney injury. There was no evidence of acute coronary syndrome. Regarding her heart meño lure, she arrived appearing clinically dry and her acute kidney injury was thought likely secondary t o over-diuresis. She had intermittent problems with hypotension during the hospitalization and, at t he time of discharge, her beta ena and JENNY inhibitor continued to be held as she was unable to to lerate these. Will resume her Lasix at a lower dose to prevent further problems with over-diuresis, at just 20 mg daily. She had an uneventful recovery from her hip surgery. She was given Coumadin fo r DVT prophylaxis postoperatively. She was not a candidate for Lovenox or a novel anticoagulants giv en her elevated creatinine. It seems that for the 1st day she received 2 doses of Coumadin for uncle ar reasons and her INR actually anabel to 7.9. She then developed some hematemesis and had some dark s tools. At this point, Coumadin was held. Her INR has trended down to 1.9 at the time of discharge. Her creatinine is improved at 1.4. At this point, she should be fine to have low-dose Lovenox for D VT prophylaxis. She has had no further episodes of bleeding. Her hemoglobin has remained stable and was 10.2 at discharge. Regarding her diabetes, her Lantus insulin was up titrated to 14 units at bed time. She will be discharged on 3 units AC of lispro insulin. At time of discharge, she is hemodyna mically stable, was not requiring oxygen and appeared euvolemic. DISPOSITION: Patient is discharged to long-term facility for rehab. DISCHARGE MEDICATIONS: Please see [employer] for complete updated outpatient medication list. New med ications upon discharge include: 1. Tylenol 1000 mg p.o. q.8 hours. 2. Tramadol 25 mg p.o. q.6 hours p.r.n., #60, no refills. 3. Lovenox 30 mg subcutaneous daily for 13 more days for total of 21 days postop prophylaxis then st op. 4. Senokot 1-2 tablets p.o. twice daily p.r.n. 5. MiraLAX 17 g p.o. daily p.r.n. 6. Bisacodyl 5 mg p.o. p.r.n. 7. She will continue all outpatient medications as prescribed with the exception of changed medicati ons including Lasix is decreased to 20 mg p.o. daily. Insulin glargine is increased to 14 units subc utaneous at bedtime. At this time, her enalapril and metoprolol are held; she was unable to tolerate these due to hypotension. Would consider reinitiating these medications given her coronary artery di sease if her blood pressure tolerates at a later time. Her aspirin is also held for 1 week; this can be resumed. She has had no further evidence of GI bleeding. FOLLOWUP: 1. She has a followup appointment with Dr. Luis Ellington on December 18 at 2 p.m. 2. She should also follow up with her primary care physician. 3. A repeat INR is planned for tomorrow to ensure this continues to trend down off Coumadin. Gregorio soto plan to start low-dose Lovenox for DVT prophylaxis tomorrow. /[id number]/MODL
--- NOTE | 2016-12-17 05:48 | GCON ---
[f rep st] CONSULTATION DATE OF CONSULTATION: 12/03/2016 HISTORY OF PRESENT ILLNESS: Patient is an 81-year-old female, who was admitted to the trauma service because of a fall, sustaining a left hip fracture. She has been hospitalized for several days and h as had ORIF of her left hip. She, however, has multiple other medical problems including AFib, run o f ventricular tachycardia, and some prerenal azotemia. I was consulted for carotid evaluation. 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 Her right carotid is read as only a 30% stenosis, but her velocities are much higher than a 30% stenosis, which could be a compensatory affect from the fact that her left side is occluded. She does have a scar on her righ t neck suggestive of a previous carotid endarterectomy, but she does not remember. She presently has no neurologic symptoms other than multiple falls and the carotid bruits. PAST MEDICAL HISTORY: WI, diabetes, history of syncope, mild dementia, and congestive heart failure with a low EF. FAMILY HISTORY: Noncontributory. REVIEW OF SYSTEMS: Reveals no other major problems other than the HPI and the past history. SOCIAL HISTORY: She does not smoke. ALLERGIES: Sulfa. MEDICATIONS: Include aspirin, Lipitor, Vasotec, Humalog, Lasix, Lantus, Synthroid, metoprolol, Prilo sec, and vitamins. PHYSICAL EXAMINATION: GENERAL: Reveals an alert, cooperative, 81-year-old female, who is slightly d emented, but in no acute distress. HEAD/NECK: Reveals bilateral carotid bruits. She does have a sc ar on her right side of her neck. Pupils are equal and reactive. She is nonicteric. There are no o ral lesions. Neck is supple. No thyromegaly. CHEST: Clear and symmetric. CARDIAC: Reveals an ir regular rhythm without murmurs. ABDOMEN: Soft and nontender. EXTREMITIES: Reveal recent surgery o n her left hip for a hip fracture. NEUROLOGIC: Reasonably physiologic with limitations since she ca nnot be fully tested with her lower extremities. SKIN: Reveals no major lesions. IMPRESSION: Bilateral carotid bruits with known history of an occluded left carotid and possible his tory of a right carotid endarterectomy and right carotid is patent, but question of the velocities wo uld suggest a more significant stenosis. I would recommend a CT angiogram when her renal function chowdary s improved enough to safely tolerate that. We will review her ultrasound pictures with Radiology, as well. /[id number]/MODL
== END 2016-12-11 15:58 | DRG 480 ==
LOC: EDUNIT# → OBSVTOIN 14:12 → F2W 14:29
PROVIDERS: ADMIT Surgery; ATTEND Surgery
PROC: 0QS735Z Reposition Left Upper Femur with External Fixation Device, Percutaneous Approach (ICD-10-PCS; principal; 2016-12-03 14:45)
PROC: 30233N1 Transfusion of Nonautologous Red Blood Cells into Peripheral Vein, Percutaneous Approach (ICD-10-PCS; 2016-12-09)
DX: S72.002A Fracture of unspecified part of neck of left femur, initial encounter for closed fracture (principal); G93.49 Other encephalopathy; D68.4 Acquired coagulation factor deficiency; I50.22 Chronic systolic (congestive) heart failure; N17.9 Acute kidney failure, unspecified; S62.305A Unspecified fracture of fourth metacarpal bone, left hand, initial encounter for closed fracture; S62.612A Displaced fracture of proximal phalanx of right middle finger, initial encounter for closed fracture; E11.9 Type 2 diabetes mellitus without complications; D64.9 Anemia, unspecified; N18.3 Chronic kidney disease, stage 3 (moderate); E03.9 Hypothyroidism, unspecified; Z79.01 Long term (current) use of anticoagulants; Z87.891 Personal history of nicotine dependence; W19.XXXA Unspecified fall, initial encounter
CPT/HCPCS: 92507-GN; 92523-GN; 92610-GN; 96374; 97116-GP; 97162-GP; 97165-GO; 97530-GO; 97530-GP; 97535-GO; C1713; C1769; G8978-GP-CM; G8979-GP-CJ; G8984-GO-CL; G8985-GO-CJ; G8988-GO-CJ; G8989-GO-CL; G8996-GN-CH; G8997-GN-CH; G8998-GN-CH; G9168-GN-CL; G9169-GN-CL; J0690; J1815; J1940; J2370; J2704; J3010; P9016

== ENCOUNTER 2016-12-19 01:51 | Inpatient (IN) | payer OTHER ==
[2016-12-19] MEDS ORDERED: NS 2,000 ML IV ONE (01:56)
--- NOTE | 2016-12-19 01:58 | CPEKG ---
Heart Rate: 110 RR Interval: 545 QRSD Interval: 106 QT Interval: 352 QTC Interval: 477 QRS [place]: 67 T Wave [place]: 223 EKG Severity - ABNORMAL ECG - EKG Impression: ATRIAL FIBRILLATION, V-RATE 63-149 EKG Impression: VENTRICULAR PREMATURE COMPLEX EKG Impression: BORDERLINE INFERIOR Q WAVES EKG Impression: REPOL ABNRM SUGGESTS ISCHEMIA, DIFFUSE LEADS Electronically Signed By: Dameon Regalado 19-Dec-2016 07:35:51
--- NOTE | 2016-12-19 02:05 | EDPHY ---
H & P HPI/ROS: HPI CHIEF COMPLAINT: Hypotension from rehab, "I feel fine" HISTORY OF PRESENT ILLNESS: This patient 81-year-old female, presents to me by EMS, has DNR with her, she comes from a local rehab facility. She was just in the hospital if she sustained a fall and developed a left hip fracture and left wrist fracture. She was here in hospital from December 02 to December 11. The rehab center was performing around this evening and noticed that she was pale a checked her blood pressure and her blood pressure was 50 systolic. 911 was called. EMS arrived and checked her blood pressure and she was 70 systolic. Upon arrival to the emergency room she is calm, she denies any complaints. Specifically denies chest pain at this time. She states that she "feels fine" "nothing hurts me" However of note her 1st initial blood pressure in the ER 70 systolic. EMS also reports some ST depression on her EKG pre-hospital. Due to hypotension any EKG changes she was placed into ER room 2. Her daughter arrived shortly after the ambulance. Patient this time is no chest pain upon arrival. Past Medical History: Coronary artery disease, mi, systolic congestive heart failure EF 30-35%, acute kidney injury, diabetes, on Coumadin, hypotension in the recent hospitalization, recent left hip fracture, recent left wrist fracture. Mild Dementia. Past Surgical History: Left hip surgery Social History: Daughter at bedside, denies drugs alcohol tobacco products. Currently in rehab. Family History: Noncontributory ROS REVIEW OF SYSTEMS: A comprehensive 10 point review of systems is otherwise negative aside from elements mentioned in the history of present illness. Exam Constitutional appears nontoxic, obese, triage nursing summary reviewed, vital signs reviewed, awake/alert. Initial vital signs noted to be hypotensive in the 70s. Tachycardic in the 120s. Eyes normal conjunctivae and sclera, EOMI, PERRLA. HENT normal inspection, atraumatic, moist mucus membranes, no epistaxis, neck supple/ no meningismus, no raccoon eyes. Respiratory clear to auscultation bilaterally, normal breath sounds, no respiratory distress, no wheezing. Cardiovascular tachycardic, regular rhythm, no murmur, no edema, distal pulses normal. Gastrointestinal soft, non-tender, no rebound, no guarding, normal bowel sounds, no distension, no pulsatile mass. Genitourinary no CVA tenderness. Musculoskeletal no midline vertebral tenderness, full range of motion, no calf swelling, no tenderness of extremities, no meningismus, good pulses, neurovascularly intact. Skin pink, warm, & dry, no rash, skin atraumatic. Neurologic awake, alert and oriented x 3, AAOx3, moves all 4 extremities equally, motor intact, sensory intact, CN II-XII intact, normal cerebellar, normal vision, normal speech. Psychiatric normal mood/affect. Heme/Lymph/Immune no lymphadenopathy. Differential Diagnosis: Includes but is not limited to in a particular order dehydration, electrolyte disturbance, sepsis, UTI, pneumonia, non STEMI, STEMI. Medical Decision Making: Plan for this patient full cardiac monitor technician obtain EKG , 2 large-bore IVs, IV fluid bolus, lactic acid, blood cultures, chest x-ray, urinalysis. Monitor vitals closely. Re-evaluation: EKG interpretation by me on record in [employer] system. Impression time of EKG 1:55 a.m., this is sinus tachycardia rate of [address] depression in lateral leads 1 in aVL. Also additional ST depression V2 V3 V4. Concerning for ischemia. I do not appreciate ST elevation. This is different from her last EKG dated 12/02/2016 of note this EKG is performed when she does not have any chest pain. 0206AM: DNR confirmed on chart. Discussed with patient. 0214AM: I discussed at length about her advance directive and wishes. She specifically request no ventilation. No intubation. No shock or compressions. She would like to be made comfortable. No aggressive resuscitation. 0234AM: H&H noted. Rectal exam performed. Black tarry stool. Will type and screen type and crossmatch for 2 units of PRBCs ordered. 0244AM: Discussed risk versus benefit about blood transfusion with the patient and daughter at bedside patient is acute blood transfusion. HGB reviewed from last hospitalization. Acutely lower. 0257AM: Troponin noted to be elevated. Indicating a NSTEMI. EKG shows ischemic changes in the lateral leads. Patient getting Protonix bolus and Protonix drip for dark tarry stool. Dry blood transfusion given hypotension. Also most likely severe anemia with blood loss anemia from a GI bleed causing a non STEMI. 0307AM: For long discussion with the patient as well as daughter at bedside about central line access for vasopressors given hypotension. At this time she is unsure if she wants central line artificial blood pressure medication. She discussing with her daughter. 0309AM: After extensive discussion with the family and daughter. The patient would like a central line for artificial blood pressure medications. Her wish will perform this. 0339AM: Procedure: Central line placement. Indication: Hypertension, blood loss anemia, need for vasopressors Verbal informed consent was obtained, with the risks explained to include but not be limited to bleeding, infection, and collapsed lung. A timeout was observed and patients identity and correct procedure location confirmed. Full maximal sterile barrier technique was uses including cap, gown, sterile gloves, large sheet, hand washing and chlorhexidine prep. The area anesthetized with 1 % lidocaine. The RIGH IJ was punctured with a 19 gauge finder needle, then a TLC was placed using standard Seldinger technique. There were no complications. Blood return low pressure, dark blood. Patient tolerated procedure well. CXR results: Good Line Placement. X-ray was interpreted by myself. The procedure was performed by myself. Critical Care: Total Critical Care Time Spent Managing this Patient: 85Minutes. This time was spent Exclusively with this patient. This Care was exclusive of procedures. The Organ System/life at risk was severe hypotension, blood loss anemia, non STEMI This Patient was in Critical Condition because non STEMI, severe hypertension, blood loss anemia, GI bleed, refractory hypotension ED x-ray chest one view For cental line placement. The chest x-ray reviewed. Post central line placement. No pneumothorax. Right IJ central line courses down in the correct position into the right atrium right ventricle. Good line position. No complication. 0409AM: Dr. Mullins With Cardiology consulted. Will see and evaluate the patient. 0409AM: Dr. Licea With GI has been consulted. Will see and evaluate the patient. Agrees with current plan and management. ICU admission. 0419AM: Current vital signs blood pressure 106/76, heart rate 80. Pulse ox 97% on a oxygen mask. Levophed at 10. 1st in a blood has been transfused. 430AM: Stable now on Pressors. BP stabilizing. Getting blood. Will transfer to ICU. Source: Patient, EMS - Medical/Surgical History Hx Asthma: No Hx Chronic Respiratory Disease: No Hx Diabetes: Yes Hx Cardiac Disease: Yes Hx Renal Disease: No Hx Cirrhosis: No Hx Alcoholism: No Hx HIV/AIDS: No Hx Splenectomy or Spleen Trauma: No Other PMH: diabetes, HTN, stroke (no defecits), CHF, open heart surgery - Social History Smoking Status: Former smoker Constitutional: Initial Vital Signs Heart Rate 123 H 12/19/16 01:55 Respiratory Rate 16 12/19/16 01:55 Blood Pressure 67/41 L 12/19/16 01:55 O2 Sat (%) 100 12/19/16 01:55 O2 Delivery Mode Oxymask O2 (L/minute) 6 Allergies/Adverse Reactions: banana Allergy (Verified 12/19/16 02:03) Sulfa (Sulfonamide Antibiotics) Allergy (Verified 12/19/16 02:03) Swelling/neck,face,throat Home Medications: Medication Instructions Recorded Atorvastatin Calcium [Lipitor 40 80 mg PO HS 07/23/16 mg (*)] Cyanocobalamin [Vitamin B12 (*)] 1,000 mcg PO DAILY 07/23/16 Levothyroxine [Synthroid 100 mcg 100 mcg PO DAILY06 12/02/16 (*)] Omeprazole [Prilosec 20 mg] 20 mg PO DAILY PRN 12/02/16 Acetaminophen [Tylenol ES 500 mg 1,000 mg PO Q8 tab 12/11/16 (*)] Bisacodyl [Bisacodyl (*)] 5 mg PO PRN PRN tab 12/11/16 Enoxaparin [Lovenox] 30 mg SC DAILY #13 syr 12/11/16 Polyethylene Glycol 3350 [Miralax 17 gm PO DAILY PRN pkt 12/11/16 17 gm (*)] Sennosides/Docusate Sodium 1 - 2 tab PO BID tab 12/11/16 [Senokot-S] traMADol [Ultram 50 mg (*)] 25 mg PO Q6H PRN #60 tab 12/11/16 Cholecalciferol Vit D3 [Vitamin D3 2,000 units PO DAILY 12/19/16 2000 units tab (OTC)] Furosemide [Lasix 20 MG (*)] 20 mg PO DAILY 12/19/16 Insulin Glargine [Lantus 100 7 units SC BID 12/19/16 UNITS/ML (*)] Insulin Lispro [humALOG LISPRO 100 5 unit SC TIDMEAL PRN 12/19/16 units/ml (*)] Multivitamins [Multivitamin (*)] 1 each PO DAILY 12/19/16 Medical Decision Making - Data Points Laboratory Results: Laboratory Results 12/19/16 02:08 12/19/16 02:08 Microbiology Results: MICROBIOLOGY 12/19/16 02:20 Blood Blood Culture - Preliminary 12/19/16 02:08 Blood Blood Culture - Preliminary 12/19/16 02:50 Urine,Clean Catch Urine Culture - Final Klebsiella Pneumoniae Ssp Pneu Medications Given: Acetaminophen (Tylenol Rectal) 650 mg RI Q4HRS PRN PRN Reason: Pain, Mild/Fever,Can't Take PO Stop: 06/17/17 06:16 Last Admin: 12/19/16 11:08 Dose: 650 mg Acetaminophen (Tylenol) 1,000 mg PO Q8 [facility] Stop: 06/17/17 13:59 Last Admin: 12/21/16 14:58 Dose: 1,000 mg Atorvastatin Calcium (Lipitor) 80 mg PO HS [facility] Stop: 06/17/17 20:59 Last Admin: 12/21/16 20:49 Dose: 80 mg Ceftriaxone Sodium/Dextrose (Rocephin 1 Gm (Premix)) 50 mls @ 100 mls/hr IV DAILY@0230 JEFF PRN Reason: Protocol Stop: 01/19/17 02:29 Last Admin: 12/21/16 03:06 Dose: 50 mls Sodium Chloride (Ns) 1,000 mls @ 75 mls/hr IV CONT [facility] Stop: 06/17/17 06:29 Last Admin: 12/21/16 20:48 Dose: 1,000 mls Insulin Glargine (Lantus Syringe) 7 units SC BID [facility] Stop: 06/17/17 20:59 Last Admin: 12/21/16 20:52 Dose: 7 units Insulin Human Lispro (Humalog Lispro) 0 unit SC TIDMEAL JEFF PRN Reason: Protocol Stop: 06/17/17 11:59 Last Admin: 12/21/16 17:37 Dose: Not Given Levothyroxine Sodium (Synthroid) 100 mcg PO DAILY06 [facility] Stop: 06/18/17 05:59 Last Admin: 12/21/16 06:15 Dose: 100 mcg Pantoprazole Sodium (Protonix) 40 mg PO BID [facility] Stop: 06/18/17 20:59 Last Admin: 12/21/16 20:49 Dose: 40 mg Tramadol HCl (Ultram) 25 mg PO Q6H PRN PRN Reason: Pain, Moderate Able to Take PO Stop: 06/17/17 09:56 Last Admin: 12/19/16 20:22 Dose: 25 mg Vitamin B Complex (Vitamin B12) 1,000 mcg PO DAILY JEFF Stop: 06/18/17 08:59 Last Admin: 12/21/16 11:19 Dose: 1,000 mcg Discontinued Medications Fentanyl (Sublimaze) 0 mcg IVP EDNOW ONE Stop: 12/19/16 02:36 Last Admin: 12/19/16 02:36 Dose: 25 mcg Hydrocortisone (Solucortef) 100 mg IVP EDNOW ONE Stop: 12/19/16 02:16 Last Admin: 12/19/16 02:39 Dose: 100 mg Sodium Chloride (Ns) 2,000 mls @ 0 mls/hr IV EDNOW ONE; Wide Open PRN Reason: Protocol Stop: 12/19/16 01:57 Last Admin: 12/19/16 02:38 Dose: 2,000 mls Pantoprazole Sodium 80 mg/ (Sodium Chloride) 100 mls @ 10 mls/hr IV Q10H JEFF Stop: 06/17/17 02:44 Last Admin: 12/19/16 03:14 Dose: 100 mls Pantoprazole Sodium 40 mg/ (Sodium Chloride) 100 mls @ 200 mls/hr IV EDNOW ONE Stop: 12/19/16 03:14 Last Admin: 12/19/16 03:17 Dose: Not Given Norepinephrine/Sodium Chloride (Norepinephrine 8 Mcg/Ml (Premix)) 500 mls @ 0 mls/hr IV EDNOW ONE; Per Protocol PRN Reason: Protocol Stop: 12/19/16 03:40 Last Admin: 12/19/16 04:00 Dose: 500 mls Ceftriaxone Sodium 2 gm/ (Dextrose) 50 mls @ 100 mls/hr IV EDNOW ONE PRN Reason: Protocol Stop: 12/19/16 04:10 Last Admin: 12/19/16 04:35 Dose: 50 mls Pantoprazole Sodium 80 mg/ (Sodium Chloride) 100 mls @ 10 mls/hr IV Q10H JEFF Stop: 06/17/17 12:59 Last Admin: 12/20/16 03:54 Dose: 100 mls Norepinephrine/Sodium Chloride (Norepinephrine 8 Mcg/Ml (Premix)) 500 mls @ 0 mls/hr IV CONT JEFF; Titrate PRN Reason: Protocol Stop: 06/17/17 06:29 Last Admin: 12/20/16 03:55 Dose: 500 mls Sodium Chloride (Ns) 2,400 mls @ 4,800 mls/hr 30 ml/kg infuse over 30 min ( 2400 ml) IV ONCE ONE Stop: 12/19/16 12:49 Last Admin: 12/19/16 12:34 Dose: 2,400 mls Sodium Chloride (Ns) 500 mls @ 1,500 mls/hr IV ONCE ONE Stop: 12/20/16 11:34 Last Admin: 12/20/16 11:53 Dose: 500 mls Departure - Departure Disposition: [facility] Inpatient Acute Clinical Impression: Blood loss anemia, Tachycardia, NSTEMI (non-ST elevated myocardial infarction) GIB (gastrointestinal bleeding) Qualifiers: GI bleed type/associated pathology: melena Qualified Code(s): K92.1 - Melena Hypotension Qualifiers: Hypotension type: other hypotension type Qualified Code(s): I95.89 - Other hypotension UTI (urinary tract infection) Qualifiers: Urinary tract infection type: acute cystitis Hematuria presence: without hematuria Qualified Code(s): N30.00 - Acute cystitis without hematuria Condition: Critical
[2016-12-19] MEDS ORDERED: HYDROCORTISONE 100 MG/2 ML VIAL IVP ONE (02:15)
[2016-12-19 02:20] LABS: % IMMATURE GRANULYOCYTES 0.6 % (0.0-1.1); ADD DIFF? NO; ADD MORPH? NO; ADD SCAN? NO; ATYPICAL LYMPHOCYTE FLAG 0 (0-99); FRAGMENT RBC FLAG 10 (0-99); HEMATOCRIT 23.9 % (38.0-47.0); HEMOGLOBIN 7.6 g/dL (12.6-16.3); LEFT SHIFT FLG 0 (0-99); LIPEMIA HEMOLYSIS FLAG 80 (0-99); MEAN CELL HEMOGLOBIN 29.8 pg (27.9-34.1); MEAN CELL HEMOGLOBIN CONCENTR. 31.8 g/dL (32.4-36.7); MEAN CELL VOLUME 93.7 fL (81.5-99.8); MEAN PLATELET VOLUME 10.8 fL (8.7-11.7); PLATELET CLUMPS FLAG 0 (0-99); PLATELET COUNT 411 10^3/uL (150-400); RED BLOOD CELL COUNT 2.55 10^6/uL (4.18-5.33); RED CELL DISTRIBUTION WIDTH 16.3 % (11.5-15.2)
[2016-12-19] MEDS ORDERED: fentaNYL 100 MCG/2 ML INJ ONE (02:32)
[2016-12-19 02:33] LABS: APTT 33.5 SEC (23.0-38.0); INR 1.11 (0.83-1.16); PROTIME(PATIENT) 14.2 SEC (12.0-15.0)
[2016-12-19 02:35] LABS: ALANINE AMINOTRANSFERASE 28 IU/L (9-52); ALBUMIN 2.6 g/dL (3.5-5.0); ALKALINE PHOSPHATASE 87 IU/L (38-126); ANION GAP 10 mEq/L (8-16); ASPARTATE AMINOTRANSFERASE 37 IU/L (14-46); BILIRUBIN,TOTAL 0.4 mg/dL (0.1-1.4); BILIRUBIN-CONJUGATED 0.3 mg/dL (0.0-0.5); BILIRUBIN-UNCONJUGATED 0.1 mg/dL (0.0-1.1); CALCIUM 8.7 mg/dL (8.5-10.4); CARBON DIOXIDE 19 mEq/l (22-31); CHLORIDE 108 mEq/L (97-110); CREATININE 1.6 mg/dL (0.6-1.0); GLOMERULAR FILTRATION RATE 31; GLUCOSE 83 mg/dL (70-100); MAGNESIUM 1.7 mg/dL (1.6-2.3); POTASSIUM 4.5 mEq/L (3.5-5.2); SODIUM 137 mEq/L (134-144); TOTAL PROTEIN 4.9 g/dL (6.3-8.2)
[2016-12-19] MEDS ORDERED: fentaNYL 100 MCG/2 ML INJ IVP ONE (02:35)
[2016-12-19] MEDS ORDERED: PANTOPRAZOLE SODIUM 80 MG in NS 100 ML IV SCH (02:45)
[2016-12-19] MEDS ORDERED: PANTOPRAZOLE SODIUM 40 MG in NS 100 ML IV ONE (02:45)
[2016-12-19 02:50] LABS: CK-MB INTERPRETATION POSITIVE (NEGATIVE); CREATINE KINASE-MB FRACTION 5.15 ng/mL (0.00-3.19)
[2016-12-19 03:03] LABS: COLOR YELLOW; LEUKOCYTE ESTERASE,URINE 3+ (NEGATIVE); NITRITE,URINE NEGATIVE (NEGATIVE)
[2016-12-19 03:11] LABS: BACTERIA 4+ /hpf (NONE SEEN); MUCUS TRACE /lpf (NONE-1+); WBC,URINE 50-182 /hpf (0-3)
[2016-12-19] MEDS ORDERED: NOREPINEPHRINE/NS 500 ML IV ONE (03:39)
[2016-12-19] MEDS ORDERED: cefTRIAXone 2 GM in D5W 50 ML IV ONE (03:41)
[2016-12-19] MEDS ORDERED: HYDROmorphONE/DILAUDID 1 MG/ML INJ IVP PRN (06:17)
[2016-12-19] MEDS ORDERED: ACETAMINOPHEN 650 MG SUPP PR PRN (06:17)
[2016-12-19] MEDS ORDERED: ONDANSETRON 4 MG/2 ML VIAL IVP PRN (06:17)
[2016-12-19 06:55] LABS: HEMATOCRIT 30.3 % (38.0-47.0); HEMOGLOBIN 9.8 g/dL (12.6-16.3)
[2016-12-19 07:17] LABS: CK-MB INTERPRETATION POSITIVE (NEGATIVE)
[2016-12-19] MEDS ORDERED: D50W 25 GM/50 ML SYR IVP PRN (08:43)
[2016-12-19] MEDS ORDERED: traMADol 50 MG TAB PO PRN (09:57)
--- NOTE | 2016-12-19 09:59 | GCON ---
[f rep st] CONSULTATION DATE OF CONSULTATION: 12/19/2016 REFERRING PHYSICIAN: Toya Harris MD CHIEF COMPLAINT: Melena. HISTORY OF PRESENT ILLNESS: Dear Dr. Harris, thank you very kindly for asking me to evaluate this pat ient in consultation for a chief complaint of melena. She is an 81-year-old female, who was brought to the hospital yesterday evening by EMS for hypotension. She has a somewhat complex recent medical history with a wrist and left hip fracture from a fall that was repaired by Orthopedics in late . She had been on Coumadin for atrial fibrillation at that time, but on discharge to the rehab c enter was not on Coumadin and was in sinus rhythm. She did have an elevated INR prior to her fractur e with a report of an INR of 7. There was no evidence of gastrointestinal bleeding postoperatively, but yesterday developed melena at the rehab center. She was described as having a large dark bowel m ovement. The patient denies any emesis. She has not had any bowel activity since admission. Her he matocrit in the emergency room was 23.9. She was, however, hypotensive, and was begun on pressor the rapies through a central access to improve a systolic blood pressure of 70. She was also found to chowdayr ve ST-segment depressions and an elevated troponin, which is worse this morning. She has received tr ansfusion with this morning's hematocrit at 30. The patient's only GI complaints are for heartburn with substernal burning chest discomfort, a poor a ppetite lately, but otherwise she denies any notable blood in her stool that she has been aware of. She says she feels constipated since her orthopedic repair. She denies any abdominal pain. Her wris t has been wrapped in a bandage and feels okay without a lot of pain, and her hip feels well also. S he denies any fever. She has not had a previous gastrointestinal bleed that she is aware of. I am a sked to assist with further evaluation and management. PAST MEDICAL HISTORY: Significant for known coronary artery disease with a previous history of myoca rdial infarction. She has congestive heart failure with reports of systolic failure with an ejection fraction between 30% and 35%, diabetes mellitus, mild dementia, recent left hip and left wrist fract ure. Atrial fibrillation, with a history of being on Coumadin, but not recently. History of chronic kidney injury with a creatinine about 1.5. PAST SURGICAL HISTORY: Significant surgical repair of her left hip and wrist. SOCIAL HISTORY: The patient lives in [place]. Her daughter has been her primary care provider. No tobacco or alcohol use. She is . She does live with her daughter currently. She is a [employer] rebeccapetr [employer] employee at the [employer]. FAMILY HISTORY: Negative for peptic ulcer disease, bleeding disorders, reflux, gastric cancer or col on cancer. MEDICATIONS: Reviewed from her rehab center and include: Fentanyl patch, Tylenol, morphine IV as ne eded, atorvastatin 80 mg daily, B12 1,000 mcg oral daily, levothyroxine 100 mcg daily, insulin slidin g scale, oxycodone IR 5 mg p.o. every 4 hours. ALLERGIES: Sulfa antibiotics and bananas. REVIEW OF SYSTEMS: CONSTITUTIONAL: The patient says she feels pretty well. She has improved genera lly since last night, where she felt more malaise and weak. HEENT: Denies headache. Denies sore th roat. Denies difficulty with swallowing or throat pain. PULMONARY: Denies shortness of breath or c ough. CARDIOVASCULAR: She does have chest pain. She denies any recent syncope, although has had sy ncope in the past. The chest pain is described as a substernal focal discomfort. She denies worseni ng of the pain with swallowing. GI: She has had an episode of melena described by the rehab center. A rectal exam performed in the emergency room was also reported to me as being black in color. She denies abdominal pain. She has been constipated since her hip fracture repair. She denies diarrhea . She denies nausea, vomiting, or hematemesis. She does feel heartburn that has been several weeks in duration, but no dysphagia. RHEUMATOLOGIC: She denies any hip pain from her surgical site, and s ays this feels quite well to her. She has no other orthopedic complaints or joint pain. DERMATOLOGIC : Denies rash or jaundice. NEUROLOGIC: She denies any paresthesias, weakness. She has had the rec ent fall, which she describes as being somewhat mechanical in nature with a trip and fall injury. EN DOCRINE: Denies heat or cold intolerance. GENITOURINARY: Denies dysuria or hematuria. PHYSICAL EXAM: VITAL SIGNS: Blood pressure is 101/61 with a mean arterial pressure of 68, her heart rate is 74 and regular, respirations are 16, oxygenation is 99% to 100% on 4 L nasal cannula. GENER AL: The patient is alert, cooperative, and able to provide her history. She is tearful. HEENT: No rmocephalic, atraumatic. Sclerae are anicteric. Mucous membranes are dry, but no thrush or blood in the oropharynx. Nares are clear. PULMONARY: Diminished breath sounds laterally. Good air exchang e anteriorly. She does not seem discs neck. CARDIOVASCULAR: Regular rate and rhythm without murmur , rub, or gallop. No chest wall tenderness. GI: Abdomen is soft. Normal bowel sounds to slightly hypoactive bowel sounds. There is no organomegaly, ascites, rebound, guarding, or bruit. EXTREMITIE S: Pale. Capillary refill is slightly delayed. There is lower extremity edema that is mildly pitti ng around the ankles. Dorsalis pedis pulses are good bilateral. NEUROLOGIC: Alert to person, place , and time. She seems well. Her speech is normal. She has good memory for remote events. Nonfocal motor exam. Cranial nerves are grossly normal. LABORATORY DATA: Initial labs on 12/19/2016 at 2:08 a.m. : White blood count of 16.2, hematocrit is 23.9, platelets are 411, post transfusion hematocrit at 6:35 a.m. this morning is 30.3. INR is 1.1 with a PT of 14.2, and a PTT of 33.5, sodium 137, potassium 4.5, chloride 108, bicarbonate is 19, BUN is 71, with a creatinine of 1.6. Glucose is 83, calcium 8.7, AST 37, ALT 28, alkaline phosphatase 8 7. Troponin is 2.2, increased to 7.5 this morning. BNP is 25,500. Lipase is 104. Stool for occult blood is positive. IMPRESSION: 1. Anemia, likely multifactorial and due to recent postoperative loss, but also now with what sounds like gastrointestinal losses. 2. Hypotension. 3. Non-ST elevation myocardial infarction in the setting of known coronary disease. 4. Chest pain. 5. Heartburn. RECOMMENDATIONS: 1. Medical management for now. I believe she would benefit from a cardiology consultation to help m anage the myocardial event. 2. If the plan from a cardiovascular standpoint is for a heart catheterization with possibly anticoa gulation and anti-platelet therapies related to this or even cardiac stenting, then I believe an uppe r endoscopy prior to this will be pivotal to help interrogate the risk of this in the setting of blee ding. 3. If the plan for cardiovascular care is medical management only, then I believe I would also conco mitantly medically manage the GI bleed with proton pump inhibitor therapy and transfusion, with the p elio to intervene endoscopically for diagnostic purposes at a later date, maybe within 72 hours or so after her event, and with giving her time to stabilize. 4. She will need anesthesia assistance for her endoscopy given her recent AR and cardiovascular morb idity. 5. Continuous proton pump inhibitor drip. 6. Hematocrit q.4 hours. 7. It is appropriate if she needs aspirin therapy to provide this given her AR, and I would not with hold that. 8. If there is more brisk bleeding or the plan is for invasive cardiovascular management, then endos copy will be warranted. 9. I have discussed this plan with the patient, as well as the patient's daughter, Libby, who is h er primary care provider, and Dr. Roxana Winter from the medical management perspective. All are in agreement with the current care plan. 10. She can start with clear liquids today and advance as tolerated. 11. Further recommendations depending on her clinical progress. Thank you for allowing me to be involved in her care. /[id number]/MODL
--- NOTE | 2016-12-19 10:19 | GHP ---
[f rep st] HISTORY AND PHYSICAL DATE OF ADMISSION: 12/19/2016 SOURCE: Patient able to provide history and appears reliable. Her daughter is at bedside and supplements history. Case discussed with ED provider prior to admission to ICU. CHIEF COMPLAINT: Hypotension. HISTORY OF PRESENT ILLNESS: This is a very pleasant 81-year-old female with a recent discharge 12/11/2016 following a fall with a left hip fracture and left wrist fracture, who presents to the emergency department today from her half-way facility after staff noted patient appeared to be pale, and checked some vital signs which indicated patient was hypotensive. The patient was also noted to have some EKG changes concerning for ischemia; although, patient denied any complaints or symptoms except for maybe some mild pain around her current incision site on her left hip. The patient denies any fevers or chills. No cough. No chest pain or palpitations. No shortness of breath. She has chronic lower extremity edema, worse on the left compared to the right, and she reports this appears to be stable. Patient denies any lightheadedness. No changes in vision. No numbness or tingling. No focal weakness. REVIEW OF SYSTEMS: Negative except as noted above. Patient denies essentially everything except for some pain in her left hip. ALLERGIES: Bananas and sulfa. HOME MEDICATIONS: As per EMR: Tramadol 25 mg p.o. q.6 hours p.r.n. pain, Senokot S 1-2 tabs p.o. b.i.d., MiraLAX 17 g p.o. daily p.r.n., Prilosec 20 mg p.o. p.r.n., multivitamin 1 tab p.o. daily, levothyroxine 100 mcg p.o. daily, Lantus 7 units subcu b.i.d., Lovenox 30 mg subcu daily, insulin 5 units subcu t.i.d. p.r.n., vitamin D3 2000 units p.o. daily, Lasix 20 mg p.o. daily, vitamin B12 1000 mcg p.o. daily, bisacodyl 5 mg p.o. p.r.n., atorvastatin 80 mg p.o. q.h.s., and Tylenol 1000 mg p.o. q.8 hours. PAST MEDICAL HISTORY: 1. Significant for coronary artery disease, status post CABG, with history of recent N-STEMI following her fall. 2. CKD, stage 3. Baseline appears to be 1.6 to 1.8. 3. Diabetes, type 2, controlled, insulin dependent. 4. Carotid artery stenosis. 5. CVA in 1986 without sequelae. 6. CABG 4-vessel in 1996 without any reports or cardiac catheterizations. 7. Systolic CHF with EF of 30% to 35%. 8. Mild dementia. 9. History of syncope and falls. PAST SURGICAL HISTORY: Significant for left hip ORIF and CABG, 4 vessel. FAMILY HISTORY: Daughter reports she is healthy. SOCIAL HISTORY: Patient is . She was previously living with her daughter, however has been at half-way facility since her discharge on . She denies tobacco, drugs, or alcohol use. CODE STATUS: DNR/DNI, but patient is amenable to central line placement, pressor support, and medical resuscitation. PHYSICAL EXAMINATION: VITAL SIGNS: Upon arrival to the ER, blood pressure 81/ 67, heart rate 114, O2 sat 100% on room air, and respiratory rate 16. At time of interview, blood pressure 126/66, heart rate 80, respiratory rate 16, O2 sat 100% on 4 L OxyMask. GENERAL: No acute distress. Very pleasant obese adult elderly female, appears chronically ill and pale, lying comfortably in bed. She is awake and interactive, in good spirits. Daughter is at bedside. HEAD: Normocephalic atraumatic. EYES: Extraocular muscles are intact. Pupils are equal and round without any scleral icterus or conjunctival injection. ENT: Mucous membranes appear moist. No oropharyngeal erythema or exudates. NECK: Supple. Trachea midline. CV: Regular rate and rhythm. There is a 2/6 holosystolic murmur. No rubs or gallops. No chest wall tenderness to palpation. RESPIRATORY: Diminished at the bases but otherwise clear bilaterally. Exam limited secondary to patient's relative immobility with her recent left hip repair and obesity. ABDOMEN: Obese, soft, nontender to palpation. No rebound, guarding, or masses appreciated. Positive bowel sounds. : Law catheter in place. No suprapubic tenderness to palpation. EXTREMITIES: Patient with 2+ pitting edema bilaterally, slightly more so on the left than the right. She has some surgical scars on her knees. NEURO: Cranial nerves 2 through 12 intact and symmetric bilaterally. Patient is awake , alert, and oriented x4. Sensation intact in upper and lower extremities, bilaterally and symmetric. PSYCH: Thought process, content, and questions are appropriate. LABORATORY STUDIES: WBC 16.29, H and H 7.6 and 23.9, MCV 93.7, platelet count 411. PT is 14.2, INR is 1.11, PTT is 33.5. D-dimer is 313. VBG lactic acid 1.7. Sodium 137, potassium 4.5, chloride 108, CO2 19, BUN 71, creatinine 1.6, and GFR of 31. Patient's baseline appears to be 1.6 to 1.8. Glucose 83, calcium 8.7, magnesium 1.7, total bili 0.4, ALT 28, AST 37, alk phos is 87, CK is 69, CK-MB 5.15. CK is positive. Troponin 2.250. BTNP 25,500. Total protein 4.9, albumin is 2.6, lipase 104. UA: Specific gravity 1.016 with a pH of 6.0, 2+ protein, 3+ leukocyte esterase , RBCs 5-10, WBCs 50-182, bacteria 4+, trace epithelials, trace mucus, negative glucose. Stool occult blood is positive. EKG reviewed by me upon arrival showing T-wave inversions in the inferolateral leads, no acute ST elevations, Q-waves in the inferior leads, QTc 477. On EKG, P-waves are not present for all QRS'; however, on the lunchroom monitor, patient does have visualized P-waves. No previous history of atrial fibrillation. Chest x-ray image and report reviewed. Acute CHF with interstitial pulmonary edema, stable chronic cardiomegaly, rounded retrocardiac density present and consistent with hiatal hernia. ASSESSMENT AND PLAN: A very pleasant 81-year-old female who presents from assisted with noted hypotension. 1. Melena, concerning for upper gastrointestinal bleeding. Patient has been given Protonix. She was found to be anemic and significantly hypotensive. The patient was previously on Coumadin and was found to be supratherapeutic. She was subsequently removed off Coumadin for anticoagulation in the setting of her hip repair and subsequently placed on Lovenox prophylactic dosing at 30, renally dosed. This will be held, and Gastroenterology was consulted from the emergency department. 2. Hypotension and shock. Etiology is hemorrhagic versus possibly even septic , as patient does have urinary tract infection and meets criteria based on qSOFA scoring. She has required central line placement and pressor support. At this time, patient has also received blood and now titrating down on the Levophed. Patient remains largely asymptomatic at this time. 3. Kyz-SW-qsgnqzvbu myocardial infarction with acute ST depressions in the inferolateral leads and an elevated troponin greater than 2. Patient denies any current chest pain. She does have a known history of coronary artery disease, status post coronary artery bypass graft. Cardiology is consulted from the emergency department and will see the patient in the ICU. 4. Coronary artery disease. Will plan to resume appropriate antihypertensives. Holding antiplatelets in setting of gastrointestinal bleeding. Patient is not on any JENNY or ARB, likely with history of chronic kidney disease stage 3 and variability with any acute illnesses. We will plan to continue statin and holding antihypertensives in setting of shock. 5. Sepsis, severe. Patient with hypotension. The patient does qualify with tachycardia and hypotension, and source is positive for likely urinary tract infection; however, patient has denied any symptoms. She does have a history of urinary incontinence, so this could represent colonization versus symptomatic in setting of frequency and complaint of generalized weakness with hypotension. 6. Chronic kidney disease, stage 3. Patient appears to be close to baseline. Will continue to monitor renal function closely. 7. Diabetes, type 2. Controlled, insulin dependent, with kidney involvement. Will plan to use a low-dose sliding scale and patient currently n.p.o. 8. History of Coumadin anticoagulation postoperatively with left hip fracture. Patient had this previously discontinued, and her INR is subtherapeutic. She had, however, been converted to Lovenox injections, and this will also be held in setting of gastrointestinal bleeding. 9. History of left hip fracture, status post open reduction/internal fixation. Patient does complain of a minimal amount of superficial pain at the incision site itself; no significant tenderness to deep palpation. Once patient has been transitioned off pressor support, will plan to order physical therapy and occupational therapy once appropriate. 10. Mild dementia. Patient currently oriented x3 and appears appropriate. 11. Thrombocytosis, likely reactive in setting of multiple medical issues. 12. Acute blood loss anemia, status post transfusion with improvement in H and H. We will continue to monitor serial H and H, given patient's history of coronary artery disease and acute fio-SA-gnvotnzyo myocardial infarction. Goal to transfuse around unless otherwise recommended by Cardiology. 13. Thrombocytosis, likely reactive in setting of patient's multiple medical issues. elevated BTNP in setting of congestive heart failure decompensation with pulmonary edema. Will continue to monitor. Anticipate improved renal perfusion with the Levophed and increased urine output. 14. Hypoalbuminemia, likely multifactorial. Including acute and chronic medical issues and possibly consider some nutritional deficiencies in setting of patient's current status. Will obtain a dietary consult. 15. Fluid/electrolytes/nutrition. Patient receiving Levophed. She is status post 2 units of PRBCs. Hold off on diuresis. Patient will be n.p.o. Monitor urine output closely. 16. Prophylaxis. Sequential compression devices only; no anticoagulation in setting of gastrointestinal bleeding and anemia. CODE STATUS: Nx-Nai-Qctshgxgdlj/Cr-Hlx-Idmpnusl, and patient does not want any aggressive heroic resuscitation, but she is amenable to the central line, the pressor support, and other medical resuscitation options, but no compressions, no intubation, and no defibrillation. DISPOSITION: Patient has been admitted to inpatient status in the ICU and is critically ill. Anticipate a greater than 2-midnight stay. /[id number]/MODL MTDD
[2016-12-19 10:43] LABS: HEMATOCRIT 29.9 % (38.0-47.0); HEMOGLOBIN 9.8 g/dL (12.6-16.3)
[2016-12-19] MEDS: NS 1,000 ML IV SCH (11:10)
--- NOTE | 2016-12-19 11:25 | ASMTCMCOM ---
CM Note CM Note Notes: Chart reviewed and pt discussed during rounds. She is here from [facility] recovering from recent hip and wrist fractures when she became hypotensive questionably r/t melena and anticoagulants. Gastroenterology recommending medical management. Patient also has coronary complications of ACS and irregularity of heart rhythm. Met with pt to discuss dc POC and she is eager to return to [facility] when medically stable. CM to follow. Date Signed: 12/19/2016 11:25 AM Electronically Signed By:Lucrecia Tompkins RN
[2016-12-19] MEDS ORDERED: NS 2,400 ML IV ONE (12:20)
[2016-12-19] MEDS: NOREPINEPHRINE/NS 500 ML IV SCH (12:28)
[2016-12-19] MEDS: INSULIN LISPRO 100 UNIT/ML SC SCH ×2 (12:58→18:50)
[2016-12-19] MEDS: PANTOPRAZOLE SODIUM 80 MG in NS 100 ML IV SCH ×2 (13:20→20:34)
[2016-12-19 14:30] LABS: CK-MB INTERPRETATION POSITIVE (NEGATIVE)
--- NOTE | 2016-12-19 14:40 | GCON ---
[f rep st] CONSULTATION [employer] CONSULTATION DATE OF CONSULTATION: 12/19/2016 REASON FOR ADMISSION: 1. Non-ST elevation myocardial infarction. 2. Melena. 3. Gastrointestinal bleed. 4. Hypotension. 5. Shock. HISTORY OF PRESENT ILLNESS: The patient is a very pleasant, 81-year-old white female with a past med ical history including frequent syncope and falls, dementia, congestive heart failure, coronary arter y disease, status post coronary bypass graft, history of old stroke, diabetes, chronic renal insuffic iency. She presents with hypotension. She was initially discharged from the hospital on November 15 following a fall with a left wrist and left hip fracture. She was brought back to the emergency room today appearing quite pale. She was subsequently diagnosed with a GI bleed, as well as hypotens ion, and admitted to the intensive care unit. In discussion with the patient, she states that overal l she feels somewhat well. She denies any chest pain, pleuritic-type chest pain, or anginal equivale nt. There is no fever or night sweats. No nausea, vomiting, or diarrhea. Her hip pain is tolerable . PAST MEDICAL HISTORY: Again, significant for coronary artery disease, chronic renal insufficiency, d iabetes, history of a stroke, coronary bypass graft, congestive heart failure, dementia. SOCIAL HISTORY: No history of tobacco use. No history of alcohol use. She is . She has cur rently been residing in a group home. Code status DNR. PHYSICAL EXAM: VITAL SIGNS: Blood pressure is 118/49, pulse 69, respirations 17, temperature is 37. 0, oxygen saturation is 100% on room air. GENERAL: She is a thin, somewhat frail elderly white fema le, who is resting comfortably in no acute distress HEENT: Eyes are PERRLA, EOMI. She has bilateral arcus senilis present. Throat shows no erythema or tonsillar hypertrophy. NECK: Supple. No cervi goldie adenopathy. HEART: Regular rate and rhythm with a 2/6 systolic murmur at the left sternal borde r without radiation. LUNGS: Diminished breath sounds, but no wheeze. ABDOMEN: Soft, nontender. B owel sounds present in all 4 quadrants. EXTREMITIES: Her left upper extremity is splinted. LABORATORIES: White count is 16.2, hemoglobin 9.8, hematocrit 29, platelet count is 411. INR 1.11. Sodium 137, potassium 4.5, chloride 108, CO2 is 19, BUN 71, creatinine 1.6, glucose is 83. Troponin s are positive. BNP is markedly elevated 25,500. Urinalysis: pH 6, specific gravity 1.016, 4+ bact eria. Stool for occult blood is positive. IMPRESSION: 1. Gastrointestinal bleed. This is likely upper in origin. 2. Hypotension and shock. This is likely hypovolemic. 3. Acute renal failure. 4. Non-ST elevation myocardial infarction. 5. History of coronary artery disease. 6. Chronic renal insufficiency. 7. Diabetes. 8. Mild dementia. RECOMMENDATIONS: 1. Agree with admission to intensive care unit. 2. IV fluids. 3. Wean pressors as tolerated. 4. GI to see. 5. DVT and PE prophylaxis. 6. Stress ulcer prophylaxis. 7. Agree with Cardiology consult. Thank you very much. /[id number]/MODL
--- NOTE | 2016-12-19 15:20 | ECHO ---
[email or web address] [address] [address] Main: [phone] Fax: [email or web address] Echocardiogram Name: COLLIN MARINELLI MR#: [id number] Study Date: 12/19/2016 Study Time: 12:33 PM Date of : 1935 Age: 81 year(s) Height: 162.6 cm (64 in.) Weight: 79.83 kg (176 lb.) BSA: 1.85 m2 Gender: Female Examination: Echo Indication: Image Quality: Adequate Contrast: Requested by: Roxana Winter BP: 110 mmHg/70 mmHg Heart Rate: Rhythm: Atrial fibrillation Indication: Procedure Staff Customer Services Manager: Renetta Da Silva Reading Physician: Sergio Solomon Requesting Provider: Conclusions: Normal size left ventricle. Moderately reduced systolic LV function. The basal inferoseptal, basal inferior, basal inferolateral, mid inferior and mid inferolateral wall segments are hypokinetic. The left atrium is moderately to severely dilated. The right atrium is moderately dilated. Moderate to severe mitral regurgitation. There is calcification of the subvalvular apparatus. The aortic valve is tri-leaflet. Aortic sclerosis is present. Moderate to severe aortic regurgitation. The tricuspid valve appears normal. Moderate to severe tricuspid valve regurgitation. Measurements: Chambers Valvular Assessment AV/MV Valvular Assessment TV/PV Normal Normal Normal Name Value Range Name Value Range Name Value Range Ao Elen (MM): 2.7 cm (2.2 cm-3.7 AV Vmax: 1.44 m/s (1 m/s-1.7 TR Vmax: 3.69 mm/s ( - ) cm) m/s) TR PGmax: 54 mmHg ( - ) IVSd (2D): 0.9 cm (0.6 cm-1.1 AV maxP mmHg ( - ) syst. PAP: 64 mmHg ( - ) cm) AV meanP mmHg ( - ) PV Vmax: 1.03 m/s (0.6 m/s-0.9 LVDd (2D): 4.7 cm (3.9 cm-5.3 ZACKARY (VTI): 1.1 cm ( - ) m/s) cm) AR (PHT): 361 ms ( - ) PV PGmax: 4 mmHg ( - ) LVDs (2D): 4.0 cm (2.1 cm-4 MV E Vmax: 1.18 m/s ( - ) cm) MV A Vmax: 0.63 m/s ( - ) LVPWd (2D): 0.9 cm ( - ) MV E/A: 1.87 ( - ) LVOTd 1.8 cm 1.8 cm mm MV meanP mmHg ( - ) LVEF (BP): 43 % (>=55 %) MVA (Vmax): 2.5 m/s ( - ) EF Range: 35-40 % Patient: COLLIN MARINELLI Study Date: 12/19/2016 Page 1 of 3 12:33 PM RVDd(2D): 3.5 cm (1.9 cm-3.8 cmmm) Continued Measurements: Chambers Valvular Assessment AV/MV Valvular Assessment TV/PV Name Value Name Value Name Value LADs Lon.4 cm MV Annulus: 3.1 cm CVP (est.): 10 mmHg LA Area: 27.0 cm2 MV DecTime: 158 m/s LA Volume: 97 ml MV E' Septal: 0.05 m/s LA Volume Index: 52.4 ml/m2 MV E/E' Septal: 23.70 TAPSE: 1.1 cm MV E/E' Lateral: 23.30 MV VTI: 18.80 cm MR Vena Contracta: 0.5 cm MR ERO: 0.3 cm2 MR PISA radius: 9 mm MR Reg. Volume: 65 ml MR Reg. Fraction: 46 % AR Vmax: 4.92 cm/s AR ERO: 0.3 cm2 AR PISA radius: 0.5 cm AR Reg. Volume: 76.0 ml AR Reg. Fraction: 162 % AR VTI: 270.0 cm Findings: Left Ventricle: Normal size left ventricle. Moderately reduced systolic LV function. The ejection fraction is estimated to be 35-40 %. The basal inferoseptal, basal inferior, basal inferolateral, mid inferior and mid inferolateral wall segments are hypokinetic. All remaining scored wall segments are normal. Right Ventricle: Normal size right ventricle. Normal RV function. Left Atrium: The left atrium is moderately to severely dilated. Right Atrium: The right atrium is moderately dilated. Mitral Valve: There is mild thickening of the mitral valve leaflets. Moderate to severe mitral regurgitation. Most likely there is papillary muscle dysfunction. There is flow reversal in the pulmonary veins consistent with significant mitral regurgitation. There is Mild posterior annulus calcification. There is Mild anterior annulus calcification. There is calcification of the subvalvular apparatus. Aortic Valve: The aortic valve is tri-leaflet. Aortic sclerosis is present. Moderate to severe aortic regurgitation. Tricuspid Valve: The tricuspid valve appears normal. Moderate to severe tricuspid valve regurgitation. The pulmonary artery pressure is moderately to severely increased. Pulmonic Valve: The pulmonic valve is normal in appearance and function. Moderate pulmonic valve regurgitation is noted. Aorta: Normal size aortic root measuring 2.7 cm. Pericardium: No pericardial effusion. (No Signature Object) Wall Motion Scores Patient: COLLIN MARINELLI Study Date: 12/19/2016 Page 2 of 3 12:33 PM -1 - Not Scored, 0 - Unknown, 1 - Normal or hyperkinesia, 2 - Hypokinesia, 3 - Akinesia, 4 - Dyskinesia, 5 - Aneurysm Patient: COLLIN MARINELLI Study Date: 12/19/2016 Page 3 of 3 12:33 PM [id number]
--- NOTE | 2016-12-19 16:02 | HOSPPROG ---
Hospitalist Progress Note Assessment/Plan: * Hypotension/shock - hypovolemia vs. sepsis -still on pressors - IV norepi gtt -CVP low - needs more fluid * UGIB -d/w Dr Licea - EGD when acute NJ complete -empiric PPI * NSTEMI - CAD s/p previous CABG -d/w cardiology - they will consult -likely unable to cath acutely due to GIB precluding use on anti-coagulants -med mgmt only for now -consider eventual cath once GIB stabilized * Intermittent afib - rate okay * ABL anemia - follow * UTI - possible source of sepsis -IV Rocephin * Chronic systolic CHF - EF chronically 30-35% * CKD - at baseline 1.6 * DM II -Lantus * Recent left hip fracture CC time spent 45 minutes Subjective: No CP or SOB Objective: Vital Signs Temp Pulse Resp BP Pulse Ox 37.0 C 65 17 117/67 100 12/19/16 14:57 12/19/16 14:57 12/19/16 14:57 12/19/16 14:57 12/19/16 14:57 Laboratory Results 12/19/16 10:34 12/18/16 12/19/16 12/20/16 05:59 05:59 05:59 Intake Total 4600 Output Total 1600 Balance 3000 PT 14.2 SEC (12.0-15.0) 12/19/16 02:08 INR 1.11 (0.83-1.16) 12/19/16 02:08 Case d/w Laura Jensen - Dr. Solomon will see patient in consultation d/w Dr. Licea - needs EGD but wants to cool down acute NJ first tele reviewed - intermittent afib but rate not fast ECHO - EF 35% - Physical Exam Constitutional: no apparent distress, appears nourished, not in pain Cardiovascular: regular rate and rhythym, no murmur, rub, or gallop Respiratory: no respiratory distress, no rales or rhonchi, clear to auscultation Gastrointestinal: normoactive bowel sounds, soft, non-tender abdomen, no palpable masses Skin: no rashes or abrasions, no fluctuance, no induration Neurologic: AAOx3, sensation intact bilaterally Psychiatric: interacting appropriately, not anxious, not encephalopathic, thought process linear ICD10 Worksheet Patient Problems: Problems Problem Status Onset Blood loss anemia Acute GIB (gastrointestinal bleeding) Acute Hypotension Acute NSTEMI (non-ST elevated myocardial infarction) Acute Tachycardia Acute UTI (urinary tract infection) Acute Bradycardia Acute CHF (congestive heart failure) Acute CKD (chronic kidney disease) 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
--- NOTE | 2016-12-19 16:44 | PDMN ---
Medical Necessity Medical necessity: est los >2 mn for hypotension & septic shock. Pt critically ill & admitted to ICU. Multiple comorbidites include s/p CABG, NSTEMI, CKD, DM, CVA, CHF, dementia & recent L hip fx, per H&P & order 12/19/16.
[2016-12-19] MEDS: ACETAMINOPHEN 500 MG TAB PO SCH ×2 (17:37→22:13)
[2016-12-19 18:17] LABS: HEMATOCRIT 27.2 % (38.0-47.0)
[2016-12-19] MEDS: INSULIN GLARGINE 100 UNITS/ML SYRINGE SC SCH (20:21)
[2016-12-19] MEDS: ATORVASTATIN CALCIUM 40 MG TAB PO SCH (20:22)
[2016-12-20 03:38] LABS: % IMMATURE GRANULYOCYTES 0.6 % (0.0-1.1); ABSOLUTE IMMATURE GRANULOCYTES 0.06 10^3/uL (0.00-0.10); ADD DIFF? NO; ADD MORPH? NO; ADD SCAN? NO; ATYPICAL LYMPHOCYTE FLAG 0 (0-99); FRAGMENT RBC FLAG 20 (0-99); HEMATOCRIT 26.4 % (38.0-47.0); HEMOGLOBIN 8.6 g/dL (12.6-16.3); LEFT SHIFT FLG 0 (0-99); LIPEMIA HEMOLYSIS FLAG 80 (0-99); MEAN CELL HEMOGLOBIN 28.9 pg (27.9-34.1); MEAN CELL HEMOGLOBIN CONCENTR. 32.6 g/dL (32.4-36.7); MEAN CELL VOLUME 88.6 fL (81.5-99.8); MEAN PLATELET VOLUME 10.2 fL (8.7-11.7); PLATELET CLUMPS FLAG 30 (0-99); PLATELET COUNT 325 10^3/uL (150-400); RED BLOOD CELL COUNT 2.98 10^6/uL (4.18-5.33); RED CELL DISTRIBUTION WIDTH 18.7 % (11.5-15.2)
[2016-12-20 03:47] LABS: INR 1.21 (0.83-1.16); PROTIME(PATIENT) 15.3 SEC (12.0-15.0)
[2016-12-20 03:48] LABS: APTT 32.6 SEC (23.0-38.0)
[2016-12-20 03:54] LABS: ALANINE AMINOTRANSFERASE 29 IU/L (9-52); ALBUMIN 2.2 g/dL (3.5-5.0); ALKALINE PHOSPHATASE 73 IU/L (38-126); ANION GAP 8 mEq/L (8-16); ASPARTATE AMINOTRANSFERASE 84 IU/L (14-46); BILIRUBIN,TOTAL 0.4 mg/dL (0.1-1.4); CALCIUM 7.8 mg/dL (8.5-10.4); CARBON DIOXIDE 17 mEq/l (22-31); CHLORIDE 116 mEq/L (97-110); CHOLESTEROL 84 mg/dL (140-220); CHOLESTEROL/HDL RATIO 2.71 RATIO (1.00-4.44); CREATININE 1.4 mg/dL (0.6-1.0); GLOMERULAR FILTRATION RATE 36; GLUCOSE 160 mg/dL (70-100); HIGH DENSITY LIPOPROTEIN 31 mg/dL (40-85); LDL/HDL RATIO 1.26 RATIO (1.00-3.22); LOW DENSITY LIPOPROTEIN 39 mg/dL (80-100); MAGNESIUM 1.6 mg/dL (1.6-2.3); NON-HIGH DENSITY LIPOPROTEIN 53 mg/dL (90-129); POTASSIUM 4.2 mEq/L (3.5-5.2); SODIUM 141 mEq/L (134-144); TOTAL PROTEIN 4.3 g/dL (6.3-8.2); TRIGLYCERIDE 72 mg/dL (35-135); VERY LOW DENSITY LIPOPROTEINS 14 mg/dL (8-25)
[2016-12-20] MEDS: PANTOPRAZOLE SODIUM 80 MG in NS 100 ML IV SCH (03:54)
[2016-12-20] MEDS: NOREPINEPHRINE/NS 500 ML IV SCH (03:55)
[2016-12-20] MEDS: NS 1,000 ML IV SCH ×3 (03:55→18:00)
[2016-12-20 04:24] LABS: CORTISOL-AM 10.6 ug/dL (4.5-22.7)
[2016-12-20] MEDS: ACETAMINOPHEN 500 MG TAB PO SCH ×3 (07:09→21:25)
[2016-12-20] MEDS: LEVOTHYROXINE 100 MCG TAB PO SCH (09:17)
[2016-12-20] MEDS: CYANO/VITAMIN B12 1000 MCG TAB PO SCH (09:17)
--- NOTE | 2016-12-20 09:17 | SOAPPROG ---
SOAP Progress Note Assessment/Plan: Assessment: 1. Melena. No recurrence 2. Anemia- stable 3. Dysphagia improved 4. Anorexia 5. Constipation 6. Non-ST elevation FL Plan: 1. Medical management of UGI bleed unless invasive cardiovascular procedure planned. 2. Then would recommend pre-angio EGD to insure safety for intervention 3. BID PPI 4. ADAT 5. Will sign off. Please call if need for EGD, further bleeding or problems with nutrition 12/20/16 09:14 Subjective: CC: No melena Eating better without dysphagia Objective: Vital Signs Temp Pulse Resp BP Pulse Ox 36.6 C 66 16 105/53 L 90 L 12/20/16 06:00 12/20/16 07:00 12/20/16 07:00 12/20/16 07:00 12/20/16 07:00 Laboratory Results 12/20/16 03:30 12/20/16 03:30 12/19/16 12/20/16 12/21/16 05:59 05:59 05:59 Intake Total 4600 5354 Output Total 1600 775 Balance 3000 4579 PT 15.3 SEC (12.0-15.0) H 12/20/16 03:30 INR 1.21 (0.83-1.16) H 12/20/16 03:30 Physical Exam - Physical Exam General Appearance: no apparent distress EENT: normal ENT inspection Neck: supple Respiratory: chest non-tender, lungs clear Cardiac/Chest: regular rate, rhythm Abdomen: normal bowel sounds, non-tender, soft, No organomegaly, No distended, No guarding, No rebound Skin: warm/dry ICD10 Worksheet Patient Problems: Problems Problem Status Onset Blood loss anemia Acute GIB (gastrointestinal bleeding) Acute Hypotension Acute NSTEMI (non-ST elevated myocardial infarction) Acute Tachycardia Acute UTI (urinary tract infection) Acute Bradycardia Acute CHF (congestive heart failure) Acute CKD (chronic kidney disease) 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
[2016-12-20] MEDS: INSULIN GLARGINE 100 UNITS/ML SYRINGE SC SCH ×2 (09:18→21:29)
[2016-12-20] MEDS: INSULIN LISPRO 100 UNIT/ML SC SCH ×3 (09:18→19:00)
[2016-12-20] MEDS ORDERED: NS 500 ML IV ONE (11:15)
--- NOTE | 2016-12-20 11:19 | HOSPPROG ---
Hospitalist Progress Note Assessment/Plan: 81 yo F w cad, recent hip fracture admitted w weakness, ABLA, hypotension, NSTEMI nstem: H/O BYPASS IN 90'S declining angiography start aspirin 12/21 low bp precludes bb, lauren on statin abla: presumably due to upper source given elevated bun, purported melena change ppi to po declining scope at this point need to restart prophylactic LMWH we have discussed that if she rebleeds on lMWH, it is reasonable to scope hypotension: suspect she is nearing her baseline cvp 11 1. bolus 500 cc 2. rapid wean of levophed proph : as above code: DNR dispo: to pcu once off pressors Subjective: case d/w alysa garcia. tele: 6 beats NSVT Objective: Vital Signs Temp Pulse Resp BP Pulse Ox 36.6 C 73 17 93/63 L 100 12/20/16 06:00 12/20/16 11:00 12/20/16 11:00 12/20/16 11:00 12/20/16 11:00 Laboratory Results 12/20/16 03:30 12/20/16 03:30 12/19/16 12/20/16 12/21/16 05:59 05:59 05:59 Intake Total 4600 5354 Output Total 1600 775 Balance 3000 4579 PT 15.3 SEC (12.0-15.0) H 12/20/16 03:30 INR 1.21 (0.83-1.16) H 12/20/16 03:30 - Physical Exam Constitutional: no apparent distress, appears nourished Eyes: PERRL, anicteric sclera Ears, Nose, Mouth, Throat: moist mucous membranes, hearing normal Cardiovascular: regular rate and rhythym, no murmur, rub, or gallop, systolic murmur Respiratory: no respiratory distress, no rales or rhonchi Gastrointestinal: normoactive bowel sounds, soft, non-tender abdomen Genitourinary: mcarthur in urethra, No no bladder fullness Skin: warm, normal color Musculoskeletal: full muscle strength, no muscle tenderness, other (hip soft, L hand NV intact) Neurologic: AAOx3, sensation intact bilaterally Psychiatric: interacting appropriately Lymph, Heme, Immunologic: no cervical LAD ICD10 Worksheet Patient Problems: Problems Problem Status Onset Blood loss anemia Acute GIB (gastrointestinal bleeding) Acute Hypotension Acute NSTEMI (non-ST elevated myocardial infarction) Acute Tachycardia Acute UTI (urinary tract infection) Acute Bradycardia Acute CHF (congestive heart failure) Acute CKD (chronic kidney disease) 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
--- NOTE | 2016-12-20 11:41 | PDINTPN ---
[employer] Progress Note Assessment/Plan: Assessment: * Non STEMI * GI bleed * Hypotension- pressors * Coronary disease * Chronic renal insufficiency * Diabetes * Mild dementia * Recent hip fracture and left wrist fracture Plan: Agree with weaning off pressors Follow H&H closely DVT PE prophylaxis Stress ulcer prophylaxis Adequate pain PT and OT Subjective: Resting comfortably. Pain is well controlled. She feels markedly improved. Objective: Vital Signs Temp Pulse Resp BP Pulse Ox 36.6 C 73 17 93/63 L 100 12/20/16 06:00 12/20/16 11:00 12/20/16 11:00 12/20/16 11:00 12/20/16 11:00 Laboratory Results 12/20/16 03:30 12/20/16 03:30 12/19/16 12/20/16 12/21/16 05:59 05:59 05:59 Intake Total 4600 5354 Output Total 1600 775 Balance 3000 4579 PT 15.3 SEC (12.0-15.0) H 12/20/16 03:30 INR 1.21 (0.83-1.16) H 12/20/16 03:30 Physical Exam - Physical Exam General Appearance: WD/WN, alert, no apparent distress EENT: PERRL/EOMI, normal ENT inspection Neck: non-tender, full range of motion, supple, normal inspection Respiratory: chest non-tender, lungs clear, normal breath sounds Cardiac/Chest: normal peripheral pulses, regular rate, rhythm, systolic murmur Abdomen: normal bowel sounds, non-tender, soft Pelvic Exam: deferred Rectal: deferred Skin: normal color, warm/dry Neuro/Psych: no motor/sensory deficits, alert, normal mood/affect, oriented x 3 ICD10 Worksheet Patient Problems: Problems Problem Status Onset Blood loss anemia Acute GIB (gastrointestinal bleeding) Acute Hypotension Acute NSTEMI (non-ST elevated myocardial infarction) Acute Tachycardia Acute UTI (urinary tract infection) Acute Bradycardia Acute CHF (congestive heart failure) Acute CKD (chronic kidney disease) 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
--- NOTE | 2016-12-20 11:53 | GCON ---
[f rep st] CONSULTATION DATE OF CONSULTATION: 12/19/2016 REASON FOR CONSULT: Elevated troponin. HISTORY OF PRESENT ILLNESS: This is a very pleasant 81-year-old female, who was recently hospitalize d due to a fall fracturing her left hip and left wrist, and discharged on 12/11/2016 to a skilled [facility] facility. It was noticed by staff at the [facility] facility that she had become very pale and quiet, and found her to be hypotensive. She was then brought to the emergency room for further evaluation. She has denied chest pain, shortness of breath, or irregular heart rates. At the time o f my visit, she is resting comfortably with mask oxygen in place. She responds appropriately to ques tions. At time of my visit, she is in no distress. REVIEW OF SYSTEM: Negative except that in the HPI. MEDICATIONS ON ADMISSION: Tramadol 25 mg every 6 hours for pain, Senokot 1-2 tabs orally twice daily , MiraLAX 17 g orally daily as needed, Prilosec 20 mg as needed, multivitamin 1 daily, levothyroxine 100 mcg daily, Lantus 7 units subcu twice daily, Lovenox 30 mg subcu daily, insulin 5 units subcu 3 t imes a day as needed, vitamin D3 2,000 units daily, Lasix 20 mg daily, vitamin B12 daily, bisacodyl 5 mg as needed, Atorvastatin 80 mg daily at bedtime, Tylenol 1,000 mg every 8 hours. PAST MEDICAL HISTORY: 1. She does have a history of coronary artery disease with CABG and recent non-STEMI. 2. Chronic kidney disease. 3. Diabetes type 2. 4. Carotid artery disease. 5. CVA in 1986. 6. CABG 4 vessel in 1996. 7. Systolic CHF with EF of 30% to 35%. 8. Mild dementia. PAST SURGICAL HISTORY: 1. Left hip ORIF. 2. A 4 vessel CABG. SOCIAL HISTORY: She is . She currently is at a [facility] facility. No use of tobacco, drugs, or alcohol. FAMILY HISTORY: No significant information. PHYSICAL EXAM: VITAL SIGNS: Today 112/64, heart rate 69, oxygen 92%. Telemetry showing intermitten t atrial fibrillation. Heart rate is regular. GENERAL: Resting comfortably, appears pale. EYES: Pupils are equal and round. ENT: Mucous membranes moist. No oropharyngeal exudate. NECK: Supple. Trachea midline. CARDIAC: Rate regular 2/6 systolic murmur. No rubs or gallops. No chest wall t enderness. RESPIRATORY: Lungs sounds are clear in the upper lobes, diminished in lower lobes bilate rally. ABDOMEN: Soft and nontender. Positive bowel sounds. : Catheter in place. EXTREMITIES: 1+ edema bilaterally. Lower extremity. NEURO: The patient awake and alert. PSYCH: Pleasant with appropriate responses. IMAGING: EKG showed T-wave inversions in the inferolateral leads. No acute ST elevations. Q-waves i n the inferior leads. Chest x-ray acute CHF with interstitial pulmonary edema, stable chronic cardiomegaly. Rounded retroc ardiac density present and consistent with hiatal hernia. LAB STUDIES: On 12/19/2016 at 1755 hours: Hemoglobin 9.0, hematocrit 27.2, INR 1.11, D-dimer 3.13. Chemistry on admission 12/19/2016: Sodium 137, potassium 4.5, carbon dioxide 19, anion gap 10, BUN 7 1, creatinine 1.6. CK-MB 5.15, CK-MB percent 7.5, creatine kinase inter positive, troponin 2.250, NT proBNP 25,500, total protein 4.9, albumin 2.6, lipase 104. On 12/19/2016 at 1345 hours: Creatine kinase 454, CK-MB fraction 39.10, CK-MB percent 8.6, creatine kinase inter positive, troponin 22.1. Urine on admit urine protein 2+, leukocyte esterase 3+, urine RBC 5-10, urine WBC 50-182, epithelial cells trace, urine bacteria 4+. Echocardiogram on 12/19/2016 showed moderately reduced systolic LV function. Basal inferior septal, basal inferior, basal inferolateral, mid inferior, and mid inferior lateral wa ll segments are hypokinetic. Left atrium moderate to severe dilatation, right atrium moderate dilata tion. Moderate to severe mitral regurgitation. Calcification of this subvalvular apparatus. Aortic valve trileaflet. Aortic sclerosis present. Moderate to severe aortic regurgitation. Tricuspid valve bruno ears normal. Moderate to severe tricuspid valve regurgitation. Heart rate during the procedure, atr ial fibrillation. Extremity venous study 12/19/2016: Impression no deep venous thrombus in the right and left lower le g aches. IMPRESSION AND PLAN: 1. Intermittent atrial fibrillation. She is tolerating it well. Heart rate is well controlled at 6 9 beats per minute at time of visit. 2. ST segment elevation myocardial infarction with troponin at 22.10. Continue with medical managem ent per patient wishes for conservative treatment. 3. Hypotension, currently well managed. 4. Gastrointestinal bleed. Treated by the hospitalist with red blood cell replacement. 5. Urinary tract infection. Treated with Rocephin per hospitalist's cardiomyopathy. Continue with conservative medical management. PLAN: She is a DNR with wishes for conservative treatment. We will honor her desire for conservativ e treatment. We will continue to follow along. Review plan with Dr. Jose Manuel Butt with no further recommendations at this time. Thank you very much for asking us to be a part of this nice lady's care. /[id number]/MODL
[2016-12-20] MEDS: ATORVASTATIN CALCIUM 40 MG TAB PO SCH (21:26)
[2016-12-20] MEDS: PANTOPRAZOLE SODIUM 40 MG TAB PO SCH (21:26)
[2016-12-21] MEDS: NS 1,000 ML IV SCH ×2 (06:15→20:48)
[2016-12-21] MEDS: LEVOTHYROXINE 100 MCG TAB PO SCH (06:15)
[2016-12-21] MEDS: ACETAMINOPHEN 500 MG TAB PO SCH ×3 (06:16→22:14)
[2016-12-21] MEDS: INSULIN LISPRO 100 UNIT/ML SC SCH ×3 (10:59→17:37)
[2016-12-21] MEDS: PANTOPRAZOLE SODIUM 40 MG TAB PO SCH ×2 (11:19→20:49)
[2016-12-21] MEDS: CYANO/VITAMIN B12 1000 MCG TAB PO SCH (11:19)
[2016-12-21] MEDS: INSULIN GLARGINE 100 UNITS/ML SYRINGE SC SCH ×2 (12:00→20:52)
--- NOTE | 2016-12-21 12:08 | HOSPPROG ---
Hospitalist Progress Note Assessment/Plan: 81 yo F w cad, recent hip fracture admitted w weakness, ABLA, hypotension, NSTEMI nstem: H/O BYPASS IN 90'S declining angiography start aspirin 12/21 if hct stable low bp precludes bb, lauren on statin abla: presumably due to upper source given elevated bun, purported melena change ppi to po declining scope at this point need to restart prophylactic LMWH we have discussed that if she rebleeds on LMWH, it is reasonable to scope UTI: day 05/20 abx largely herrera sens klebsiella hypotension: she has bp's in 80's-90's which have been the case since 10/30 her echo in 07/30 was largely the same as the one on this admit however her MR has increased query playing a role in lower bp's per daughter, her bp in L arm is higher so will check that mentating, follow off pressors proph : as above code: DNR dispo: inpatient Subjective: tele: some AF (interp by me). case d/w dr barrios Objective: Vital Signs Temp Pulse Resp BP Pulse Ox 36.4 C 67 18 83/61 L 97 12/21/16 08:00 12/21/16 08:00 12/21/16 08:00 12/21/16 10:00 12/21/16 08:00 Laboratory Results 12/20/16 03:30 12/20/16 03:30 12/20/16 12/21/16 12/22/16 05:59 05:59 05:59 Intake Total 5354 939 Output Total 775 Balance 4579 939 PT 15.3 SEC (12.0-15.0) H 12/20/16 03:30 INR 1.21 (0.83-1.16) H 12/20/16 03:30 - Physical Exam Constitutional: no apparent distress, appears nourished Eyes: PERRL, anicteric sclera Ears, Nose, Mouth, Throat: moist mucous membranes, hearing normal Cardiovascular: regular rate and rhythym, no murmur, rub, or gallop, No systolic murmur, No irregularly irregular Respiratory: no respiratory distress, no rales or rhonchi Gastrointestinal: normoactive bowel sounds, soft, non-tender abdomen Genitourinary: no bladder fullness, No mcarthur in urethra Skin: warm, normal color Musculoskeletal: full muscle strength, no muscle tenderness Neurologic: AAOx3 Psychiatric: interacting appropriately, not anxious ICD10 Worksheet Patient Problems: Problems Problem Status Onset Blood loss anemia Acute GIB (gastrointestinal bleeding) Acute Hypotension Acute NSTEMI (non-ST elevated myocardial infarction) Acute Tachycardia Acute UTI (urinary tract infection) Acute Bradycardia Acute CHF (congestive heart failure) Acute CKD (chronic kidney disease) 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
[2016-12-21 12:43] LABS: % IMMATURE GRANULYOCYTES 0.3 % (0.0-1.1); ABSOLUTE IMMATURE GRANULOCYTES 0.02 10^3/uL (0.00-0.10); ADD DIFF? NO; ADD MORPH? NO; ADD SCAN? NO; ATYPICAL LYMPHOCYTE FLAG 0 (0-99); FRAGMENT RBC FLAG 20 (0-99); HEMATOCRIT 26.9 % (38.0-47.0); HEMOGLOBIN 8.5 g/dL (12.6-16.3); LEFT SHIFT FLG 0 (0-99); LIPEMIA HEMOLYSIS FLAG 80 (0-99); MEAN CELL HEMOGLOBIN 28.9 pg (27.9-34.1); MEAN CELL HEMOGLOBIN CONCENTR. 31.6 g/dL (32.4-36.7); MEAN CELL VOLUME 91.5 fL (81.5-99.8); MEAN PLATELET VOLUME 10.5 fL (8.7-11.7); PLATELET CLUMPS FLAG 0 (0-99); PLATELET COUNT 264 10^3/uL (150-400); RED BLOOD CELL COUNT 2.94 10^6/uL (4.18-5.33); RED CELL DISTRIBUTION WIDTH 18.9 % (11.5-15.2)
[2016-12-21 13:02] LABS: ANION GAP 8 mEq/L (8-16); CARBON DIOXIDE 17 mEq/l (22-31); CHLORIDE 118 mEq/L (97-110); CREATININE 1.4 mg/dL (0.6-1.0); GLOMERULAR FILTRATION RATE 36; GLUCOSE 68 mg/dL (70-100); POTASSIUM 4.1 mEq/L (3.5-5.2); SODIUM 143 mEq/L (134-144)
[2016-12-21] MEDS: ATORVASTATIN CALCIUM 40 MG TAB PO SCH (20:49)
[2016-12-22] MEDS: LEVOTHYROXINE 100 MCG TAB PO SCH (06:15)
[2016-12-22] MEDS: ACETAMINOPHEN 500 MG TAB PO SCH ×3 (06:15→20:59)
[2016-12-22 06:26] LABS: % IMMATURE GRANULYOCYTES 0.3 % (0.0-1.1); ABSOLUTE IMMATURE GRANULOCYTES 0.02 10^3/uL (0.00-0.10); ADD DIFF? NO; ADD MORPH? NO; ADD SCAN? NO; ATYPICAL LYMPHOCYTE FLAG 0 (0-99); FRAGMENT RBC FLAG 20 (0-99); HEMATOCRIT 25.3 % (38.0-47.0); HEMOGLOBIN 8.1 g/dL (12.6-16.3); LEFT SHIFT FLG 0 (0-99); LIPEMIA HEMOLYSIS FLAG 80 (0-99); MEAN CELL HEMOGLOBIN 29.3 pg (27.9-34.1); MEAN CELL VOLUME 91.7 fL (81.5-99.8); MEAN PLATELET VOLUME 10.4 fL (8.7-11.7); PLATELET CLUMPS FLAG 0 (0-99); PLATELET COUNT 254 10^3/uL (150-400); RED BLOOD CELL COUNT 2.76 10^6/uL (4.18-5.33); RED CELL DISTRIBUTION WIDTH 18.8 % (11.5-15.2)
[2016-12-22 06:47] LABS: ANION GAP 3 mEq/L (8-16); CARBON DIOXIDE 19 mEq/l (22-31); CHLORIDE 117 mEq/L (97-110); CREATININE 1.4 mg/dL (0.6-1.0); GLOMERULAR FILTRATION RATE 36; GLUCOSE 78 mg/dL (70-100); SODIUM 139 mEq/L (134-144)
--- NOTE | 2016-12-22 10:08 | ASMTCMCOM ---
CM Note CM Note Notes: 12/22/2016 Case Management Note: Reviewed chart, spoke w/RN. Case Management d/c plan remains return to [facility] when medically stable. D/C date unclear at this time. Case Management to follow. 12/19/2016 Case Management Note by Lindsay Tompkins Chart reviewed and pt discussed during rounds. She is here from [facility] recovering from recent hip and wrist fractures when she became hypotensive questionably r/t melena and anticoagulants. Gastroenterology recommending medical management. Patient also has coronary complications of ACS and irregularity of heart rhythm. Met with pt to discuss dc POC and she is eager to return to [facility] when medically stable. CM to follow Date Signed: 12/22/2016 10:07 AM Electronically Signed By:Alicia Grace RN
[2016-12-22] MEDS: PANTOPRAZOLE SODIUM 40 MG TAB PO SCH ×2 (10:16→21:00)
[2016-12-22] MEDS: INSULIN LISPRO 100 UNIT/ML SC SCH ×3 (10:17→18:29)
[2016-12-22] MEDS: CYANO/VITAMIN B12 1000 MCG TAB PO SCH (10:17)
[2016-12-22] MEDS: INSULIN GLARGINE 100 UNITS/ML SYRINGE SC SCH ×2 (10:17→20:59)
--- NOTE | 2016-12-22 13:13 | HOSPPROG ---
Hospitalist Progress Note Assessment/Plan: 81 yo F w cad, recent hip fracture admitted w weakness, ABLA, hypotension, NSTEMI nstem: H/O BYPASS IN 90'S declining angiography aspirin started 12/21 low bp precludes bb, lauren on statin abla: presumably due to upper source given elevated bun, purported melena change ppi to po declining scope at this point LMWH restarted we have discussed that if she rebleeds on LMWH, it is reasonable to scope UTI: day 06/20 abx largely herrera sens klebsiella hypotension: she has bp's in 80's-90's which have been the case since 10/30 her echo in 07/30 was largely the same as the one on this admit however her MR has increased query playing a role in lower bp's per daughter, her bp in L arm is higher so will check that mentating, follow off pressors proph : as above code: DNR dispo: inpatient Subjective: started on asa and prophylactic LMWH. no melena Objective: Vital Signs Temp Pulse Resp BP Pulse Ox 37.0 C 70 18 134/66 H 97 12/22/16 11:35 12/22/16 11:35 12/22/16 11:35 12/22/16 11:35 12/22/16 11:35 Laboratory Results 12/22/16 06:20 12/22/16 06:20 12/21/16 12/22/16 12/23/16 05:59 05:59 05:59 Intake Total 939 1474 719 Balance 939 1474 719 PT 15.3 SEC (12.0-15.0) H 12/20/16 03:30 INR 1.21 (0.83-1.16) H 12/20/16 03:30 - Physical Exam Constitutional: no apparent distress, appears nourished Eyes: PERRL, anicteric sclera Ears, Nose, Mouth, Throat: moist mucous membranes, hearing normal Cardiovascular: regular rate and rhythym, no murmur, rub, or gallop Respiratory: no respiratory distress, no rales or rhonchi Gastrointestinal: normoactive bowel sounds, soft, non-tender abdomen Genitourinary: no bladder fullness, No mcarthur in urethra Skin: warm, normal color Musculoskeletal: full muscle strength, no muscle tenderness Neurologic: AAOx3 Psychiatric: interacting appropriately, not anxious ICD10 Worksheet Patient Problems: Problems Problem Status Onset Blood loss anemia Acute GIB (gastrointestinal bleeding) Acute Hypotension Acute NSTEMI (non-ST elevated myocardial infarction) Acute Tachycardia Acute UTI (urinary tract infection) Acute Bradycardia Acute CHF (congestive heart failure) Acute CKD (chronic kidney disease) 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
[2016-12-22] MEDS: ENOXAPARIN 30 MG/0.3 ML SYR SC SCH (17:36)
[2016-12-22] MEDS: ASPIRIN EC 81 MG TAB PO SCH (17:39)
[2016-12-22] MEDS: ATORVASTATIN CALCIUM 40 MG TAB PO SCH (20:59)
[2016-12-23 04:12] LABS: % IMMATURE GRANULYOCYTES 0.4 % (0.0-1.1); ABSOLUTE IMMATURE GRANULOCYTES 0.03 10^3/uL (0.00-0.10); ADD DIFF? NO; ADD MORPH? NO; ADD SCAN? NO; ATYPICAL LYMPHOCYTE FLAG 10 (0-99); FRAGMENT RBC FLAG 20 (0-99); HEMATOCRIT 27.4 % (38.0-47.0); HEMOGLOBIN 8.7 g/dL (12.6-16.3); LEFT SHIFT FLG 0 (0-99); LIPEMIA HEMOLYSIS FLAG 80 (0-99); MEAN CELL HEMOGLOBIN 29.2 pg (27.9-34.1); MEAN CELL HEMOGLOBIN CONCENTR. 31.8 g/dL (32.4-36.7); MEAN CELL VOLUME 91.9 fL (81.5-99.8); MEAN PLATELET VOLUME 10.7 fL (8.7-11.7); PLATELET CLUMPS FLAG 0 (0-99); PLATELET COUNT 280 10^3/uL (150-400); RED BLOOD CELL COUNT 2.98 10^6/uL (4.18-5.33); RED CELL DISTRIBUTION WIDTH 18.4 % (11.5-15.2)
[2016-12-23 04:27] LABS: ANION GAP 6 mEq/L (8-16); CALCIUM 8.3 mg/dL (8.5-10.4); CARBON DIOXIDE 16 mEq/l (22-31); CHLORIDE 119 mEq/L (97-110); CREATININE 1.3 mg/dL (0.6-1.0); GLOMERULAR FILTRATION RATE 39; POTASSIUM 3.9 mEq/L (3.5-5.2); SODIUM 141 mEq/L (134-144)
[2016-12-23 04:42] LABS: GLUCOSE 39 mg/dL (70-100)
[2016-12-23] MEDS: ACETAMINOPHEN 500 MG TAB PO SCH (04:49)
[2016-12-23] MEDS: LEVOTHYROXINE 100 MCG TAB PO SCH (04:50)
[2016-12-23 09:03] VITALS: BP 166/75; PULSE 61; RESP 15; TEMP 97.7; O2SAT 99
--- NOTE | 2016-12-23 09:48 | HOSPPROG ---
Hospitalist Progress Note Assessment/Plan: 81 yo F w cad, recent hip fracture admitted w weakness, ABLA, hypotension, NSTEMI hypoglycemia: decrease lantus to 7 daily (from 7 bid) nstem: H/O BYPASS IN 90'S declining angiography aspirin started 12/21 low bp precludes bb, lauren on statin abla: presumably due to upper source given elevated bun, purported melena change ppi to po declining scope at this point LMWH restarted we have discussed that if she rebleeds on LMWH, it is reasonable to scope UTI: day 07/20 abx largely herrera sens klebsiella hypotension: she has bp's in 80's-90's which have been the case since 10/30 her echo in 07/30 was largely the same as the one on this admit however her MR has increased query playing a role in lower bp's per daughter, her bp in L arm is higher so will check that mentating, follow off pressors proph : as above code: DNR dispo: to SNF > 30 minutes on dc Subjective: hypoglycemic w resutant confusion. hct stable on lmwh, asa Objective: Vital Signs Temp Pulse Resp BP Pulse Ox 36.5 C 61 15 166/75 H 99 12/23/16 08:00 12/23/16 08:00 12/23/16 08:00 12/23/16 08:00 12/23/16 08:00 Laboratory Results 12/23/16 03:36 12/23/16 03:36 12/22/16 12/23/16 12/24/16 05:59 05:59 05:59 Intake Total 1474 1194 Output Total 950 450 Balance 1474 244 -450 PT 15.3 SEC (12.0-15.0) H 12/20/16 03:30 INR 1.21 (0.83-1.16) H 12/20/16 03:30 - Physical Exam Constitutional: no apparent distress, appears nourished Eyes: PERRL, anicteric sclera Ears, Nose, Mouth, Throat: moist mucous membranes, hearing normal Cardiovascular: regular rate and rhythym, no murmur, rub, or gallop Respiratory: no respiratory distress, no rales or rhonchi Gastrointestinal: normoactive bowel sounds, soft, non-tender abdomen Genitourinary: no bladder fullness, No mcarthur in urethra Skin: warm Musculoskeletal: full muscle strength Neurologic: AAOx3 ICD10 Worksheet Patient Problems: Problems Problem Status Onset Blood loss anemia Acute GIB (gastrointestinal bleeding) Acute Hypotension Acute NSTEMI (non-ST elevated myocardial infarction) Acute Tachycardia Acute UTI (urinary tract infection) Acute Bradycardia Acute CHF (congestive heart failure) Acute CKD (chronic kidney disease) 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
--- NOTE | 2016-12-23 09:54 | PDIAF ---
- Diagnosis Diagnosis: UGIB, NSTEMI Code Status: Do Not Resuscitate - Medication Management Discharge Medications: Medications to Continue on Transfer Atorvastatin Calcium [Lipitor 40 mg (*)] 80 mg PO HS 07/23/16 [Last Taken ] Cyanocobalamin [Vitamin B12 (*)] 1,000 mcg PO DAILY 07/23/16 [Last Taken ] Levothyroxine [Synthroid 100 mcg (*)] 100 mcg PO DAILY06 12/02/16 [Last Taken ] Omeprazole [Prilosec 20 mg] 20 mg PO DAILY PRN 12/02/16 [Last Taken Unknown] Acetaminophen [Tylenol ES 500 mg (*)] 1,000 mg PO Q8 tab 12/11/16 [Last Taken Unknown] Bisacodyl [Bisacodyl (*)] 5 mg PO PRN PRN tab 12/11/16 [Last Taken Unknown] Polyethylene Glycol 3350 [Miralax 17 gm (*)] 17 gm PO DAILY PRN pkt 12/11/16 [ Last Taken Unknown] Sennosides/Docusate Sodium [Senokot-S] 1 - 2 tab PO BID tab 12/11/16 [Last Taken Unknown] traMADol [Ultram 50 mg (*)] 25 mg PO Q6H PRN #60 tab 12/11/16 [Last Taken Unknown] Cholecalciferol Vit D3 [Vitamin D3 2000 units tab (OTC)] 2,000 units PO DAILY [Last Taken Unknown] Furosemide [Lasix 20 MG (*)] 20 mg PO DAILY 12/19/16 [Last Taken Unknown] Insulin Lispro [humALOG LISPRO 100 units/ml (*)] 5 unit SC TIDMEAL PRN 12/19/16 [Last Taken Unknown] Multivitamins [Multivitamin (*)] 1 each PO DAILY 12/19/16 [Last Taken Unknown] Cephalexin [Keflex (*)] 500 mg PO TID #9 cap 12/23/16 [Last Taken Unknown] Enoxaparin [Lovenox] 30 mg SC DAILY syr 12/23/16 [Last Taken Unknown] Insulin Glargine [Lantus 100 UNITS/ML (*)] 7 units SC DAILY #1 ml 12/23/16 [ Last Taken Unknown] Discharge Medications: Refer to the Discharge Home Medication list for PRN reason. - Orders Services needed: Registered Nurse, Physical Therapy, Occupational Therapy, Speech Language Pathologist - Follow Up Care Current Providers and Referrals: Patient,NotPresent [Unknown] - As per Instructions
--- NOTE | 2016-12-23 10:20 | ASMTCMCOM ---
CM Note CM Note Notes: 12/23/2016 Case Management Note Pt to d/c to [facility]. [facility] to arrange and provide transport wheelchair and oxygen. Notified [facility]. Faxed final d/c orders. Date Signed: 12/23/2016 10:19 AM Electronically Signed By:Alicia Grace RN
[2016-12-23] MEDS: INSULIN LISPRO 100 UNIT/ML SC SCH (10:21)
--- NOTE | 2016-12-23 10:26 | GDS ---
[f rep st] DISCHARGE SUMMARY DISCHARGE DIAGNOSES: 1. Upper gastrointestinal bleed. 2. Acute blood loss anemia. 3. Recent hip fracture. 4. Byo-MP-penjhod elevation myocardial infarction. 5. History of coronary artery disease. 6. Urinary tract infection. 7. Not sepsis. 8. Diabetes with hypoglycemia. 9. History of stroke. 10. Chronic kidney disease with baseline creatinine of 1.6 to 1.8. HOSPITAL COURSE: Please see admission history and physical by Dr. Toya Harris. The patient present ed overnight on the 19 of December with diaphoresis, pallor, and hypotension, as well as ischemic EKG changes. Upon presentation, she was found to be anemic with a hemoglobin of 7.6. She declined uppe r endoscopy. She did receive 2 units of packed cells with subsequent stable hematocrit. Her enoxapa rin and aspirin were held but restarted prior to discharge with stable hematocrit. The patient also had an NSTEMI. EKG showed lateral ST depressions. She declined cardiac catheteriza tion. Medical management, she was started on a statin and had been on an aspirin. It was held. Keiko shaw was felt to be a type 2 UT with demand ischemia. Her symptoms largely improved. Her troponin was 2.2 and it anabel to 22 and peaked there. She did not have arrhythmia or heart failure symptoms. The patient also had a UTI and was treated with ceftriaxone. It was largely pansensitive klebsiella, and she was transferred to [facility] for completion of a 7-day course. The patient did have some hypoglycemia with poor p.o. intake. Her Lantus of 7 b.i.d. was decreased t o 7 daily. The patient is moving her bowels and alert and mentating. Her daughter participated in her care. Lizzie ashford is a do not resuscitate. The patient understands that if she rebleeds on the remainder of her VT prophylaxis, which would be a bout another 2 weeks, then it would be reasonable to perform endoscopy versus stopping low-molecular weight heparin prophylaxis and accepting the risks of VTE. Extensive conversations were held with celia ashford patient and her daughter regarding this. She is discharged back to [facility], where she is receiving rehabilitation therapy. /[id number]/MODL
[2016-12-23] MEDS: ENOXAPARIN 30 MG/0.3 ML SYR SC SCH (10:53)
[2016-12-23] MEDS: INSULIN GLARGINE 100 UNITS/ML SYRINGE SC SCH (10:54)
[2016-12-23] MEDS: PANTOPRAZOLE SODIUM 40 MG TAB PO SCH (10:55)
[2016-12-23] MEDS: CYANO/VITAMIN B12 1000 MCG TAB PO SCH (10:55)
[2016-12-23] MEDS: ASPIRIN EC 81 MG TAB PO SCH (10:55)
--- NOTE | 2016-12-23 13:59 | ASDISCHSUM ---
Discharge Information Plan Status:SNF Medically Cleared to Leave:12/23/2016 Discharge Date:12/23/2016 12:16 PM D/C Disposition:Long Term Facility ADT D/C Disposition:Other Rehab, Not [facility] Projected Discharge Date:12/23/2016 11:00 AM Transportation at D/C:Wheelchair Van Discharge Delay Reason: Follow-Up Date:12/23/2016 11:00 AM Discharge Slot: Final Diagnosis: Placement Information Referral Type:*[facility]/SNF Referral ID:[id number] Provider Name:[facility] Address 1:[address] Address 2: City:[place]: State:[place] Patient Contact Information Contact Name:JAMAAL Relationship:Daughter Address: Work Phone: City: [facility] Phone: State/Zip Code:[place] Email: Financial Information Financial Class: Primary Plan Desc:MEDICARE INPATIENT Primary Plan Number:[id number] Secondary Plan Desc:[employer]RI[employer] PPO Secondary Plan Number:[id number] Assessment Information [facility] CM Progress Note CM Note CM Note Notes: Chart reviewed and pt discussed during rounds. She is here from [facility] recovering from recent hip and wrist fractures when she became hypotensive questionably r/t melena and anticoagulants. Gastroenterology recommending medical management. Patient also has coronary complications of ACS and irregularity of heart rhythm. Met with pt to discuss dc POC and she is eager to return to [facility] when medically stable. CM to follow. Date Signed: 12/19/2016 11:25 AM Electronically Signed By:Lucrecia Tompkins RN [facility] CM Progress Note CM Note CM Note Notes: 12/22/2016 Case Management Note: Reviewed chart, spoke w/RN. Case Management d/c plan remains return to [facility] when medically stable. D/C date unclear at this time. Case Management to follow. 12/19/2016 Case Management Note by Lindsay Turner Chart reviewed and pt discussed during rounds. She is here from [facility] recovering from recent hip and wrist fractures when she became hypotensive questionably r/t melena and anticoagulants. Gastroenterology recommending medical management. Patient also has coronary complications of ACS and irregularity of heart rhythm. Met with pt to discuss dc POC and she is eager to return to [facility] when medically stable. CM to follow Date Signed: 12/22/2016 10:07 AM Electronically Signed By:Alicia Grace RN [facility] CM Progress Note CM Note CM Note Notes: 12/23/2016 Case Management Note Pt to d/c to [facility]. [facility] to arrange and provide transport wheelchair and oxygen. Notified [facility]. Faxed final d/c orders. Date Signed: 12/23/2016 10:19 AM Electronically Signed By:Alicia Grace RN Intervention Information Intervention Type:*IM-Signed Date of Service:12/23/2016 10:09 AM Patient Type:Inpatient Staff Member:Antonina Siddiqi Hours: Discipline: Severity: Comment:
== END 2016-12-23 12:16 | DRG 377 ==
LOC: EDUNIT# → F2N 05:45 → F2W 12-20 16:35
PROVIDERS: ADMIT Family Medicine; ATTEND Family Medicine
PROC: 30233N1 Transfusion of Nonautologous Red Blood Cells into Peripheral Vein, Percutaneous Approach (ICD-10-PCS; principal; 2016-12-19)
PROC: 02H633Z Insertion of Infusion Device into Right Atrium, Percutaneous Approach (ICD-10-PCS; 2016-12-19)
DX: K92.2 Gastrointestinal hemorrhage, unspecified (principal); I21.4 Non-ST elevation (NSTEMI) myocardial infarction; D62 Acute posthemorrhagic anemia; N39.0 Urinary tract infection, site not specified; I50.20 Unspecified systolic (congestive) heart failure; E11.649 Type 2 diabetes mellitus with hypoglycemia without coma; I12.9 Hypertensive chronic kidney disease with stage 1 through stage 4 chronic kidney disease, or unspecified chronic kidney disease; N18.3 Chronic kidney disease, stage 3 (moderate); I25.10 Atherosclerotic heart disease of native coronary artery without angina pectoris; A49.8 Other bacterial infections of unspecified site; S72.002D Fracture of unspecified part of neck of left femur, subsequent encounter for closed fracture with routine healing; F03.90 Unspecified dementia, unspecified severity, without behavioral disturbance, psychotic disturbance, mood disturbance, and anxiety; K59.00 Constipation, unspecified; Z66 Do not resuscitate; Z86.73 Personal history of transient ischemic attack (TIA), and cerebral infarction without residual deficits; Z79.01 Long term (current) use of anticoagulants; Z87.891 Personal history of nicotine dependence; Z95.1 Presence of aortocoronary bypass graft; Z79.4 Long term (current) use of insulin
CPT/HCPCS: 96365; 97161-GP; 97165-GO; 97530-GP; 97535-GO; G8978-GP-CL; G8979-GP-CK; G8980-GP-CK; G8987-GO-CL; G8988-GO-CJ; J0696; J1650; J1815; J3010; P9016

== ENCOUNTER 2017-01-26 10:15 | Emergency (ER) | payer OTHER, BC ==
[2017-01-26 10:24] VITALS: TEMP 97.5
[2017-01-26 10:38] LABS: % IMMATURE GRANULYOCYTES 0.4 % (0.0-1.1); ABSOLUTE IMMATURE GRANULOCYTES 0.03 10^3/uL (0.00-0.10); ADD DIFF? NO; ADD MORPH? NO; ADD SCAN? NO; ATYPICAL LYMPHOCYTE FLAG 10 (0-99); FRAGMENT RBC FLAG 20 (0-99); HEMATOCRIT 27.5 % (38.0-47.0); HEMOGLOBIN 8.5 g/dL (12.6-16.3); LEFT SHIFT FLG 0 (0-99); LIPEMIA HEMOLYSIS FLAG 80 (0-99); MEAN CELL HEMOGLOBIN 28.1 pg (27.9-34.1); MEAN CELL HEMOGLOBIN CONCENTR. 30.9 g/dL (32.4-36.7); MEAN CELL VOLUME 91.1 fL (81.5-99.8); MEAN PLATELET VOLUME 11.3 fL (8.7-11.7); PLATELET CLUMPS FLAG 0 (0-99); PLATELET COUNT 260 10^3/uL (150-400); RED BLOOD CELL COUNT 3.02 10^6/uL (4.18-5.33); RED CELL DISTRIBUTION WIDTH 17.9 % (11.5-15.2)
[2017-01-26 10:49] LABS: ANION GAP 10 mEq/L (8-16); CALCIUM 8.6 mg/dL (8.5-10.4); CARBON DIOXIDE 19 mEq/l (22-31); CHLORIDE 112 mEq/L (97-110); CREATININE 1.6 mg/dL (0.6-1.0); GLOMERULAR FILTRATION RATE 31; GLUCOSE 201 mg/dL (70-100); POTASSIUM 4.9 mEq/L (3.5-5.2); SODIUM 141 mEq/L (134-144)
--- NOTE | 2017-01-26 11:11 | EDPHY ---
H & P Stated Complaint: Abnormal Labs (Low H&H) HPI/ROS: CHIEF COMPLAINT: Sent by doc for low Hgb HISTORY OF PRESENT ILLNESS: The patient is an 81 y/o female arriving with her daughter and friend at the referral of her rehab doctor with concern for a GI bleed due to low Hgb. She was admitted here 5 weeks ago for hypotension related to upper GI bleed. She was discharged back to [facility] to continue her left hip ORIF recovery where she has been doing well. She was anemic upon discharge from our facility. Today she says, "I feel fine." She denies chest pain, dyspnea, vomiting, abdominal pain, fever, or any acute symptoms. She has had some mild intermittent diarrhea. She has not noticed black tarry or bloody stools, but per her daughter the facility "had some concern about that." REVIEW OF SYSTEMS: A ten point review of systems was performed and is negative with the exception of the items mentioned in the HPI. Past medical history: 1. CAD, N-STEMI 2. CKD stage 3, baseline creatinine 1.6-1.8 3. Diabetes type 2, insulin dependent 4. Carotid artery steosis 5. CVA in 1986 without sequelae 6. Systolic CHF with EF of 30-35% 7. Mild dementia 8. Hx syncope and falls Past surgical history: 1. CABG x4 2. 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 Daughter and friend at bedside. Currently staying at [facility]. Prior medical records reviewed including admission 12/19/16 for hypotension, GI bleed. General Appearance: Alert. Vital signs reviewed. Blood pressure 105/70, heart rate 56. Eyes: Pupils equal and round, no conjunctival injection, no discharge. Anicteric. ENT, Mouth: Mucous membranes are moist, no oropharyngeal erythema or edema. Neck: No lymphadenopathy, supple. Respiratory: Lungs are clear to auscultation; no wheezes, rales, or rhonchi. Cardiovascular: Regular rate and rhythm; no murmur, rub, or gallop. Gastrointestinal: Abdomen is soft and nontender, no masses or organomegaly, bowel sounds normal. Rectal: Black stool on the examining glove. No brock blood. No tenderness or mass. Skin: Warm and dry, no rashes on exposed skin, Pale. Back: Nontender to palpation over the thoracolumbar spine. No CVAT. Extremities: No lower extremity edema, no calf tenderness or swelling. Neurological: Alert and oriented to person and place. Moving all four extremities easily and equally. Psychiatric: Normal affect. - Personal History Current Tetanus Diphtheria and Acellular Pertussis (TDAP): Unsure - Medical/Surgical History Hx Asthma: No Hx Chronic Respiratory Disease: No Hx Diabetes: Yes Hx Cardiac Disease: Yes Hx Renal Disease: No Hx Cirrhosis: No Hx Alcoholism: No Hx HIV/AIDS: No Hx Splenectomy or Spleen Trauma: No Other PMH: diabetes, HTN, stroke (no defecits), CHF, open heart surgery, [place], ASCVD, Dementia - Social History Smoking Status: Former smoker Constitutional: Initial Vital Signs Temperature (C) 36.4 C 01/26/17 10:21 Heart Rate 56 L 01/26/17 10:21 Respiratory Rate 18 01/26/17 10:21 Blood Pressure 105/70 01/26/17 10:21 O2 Sat (%) 96 01/26/17 10:21 O2 Delivery Mode Room Air Allergies/Adverse Reactions: banana Allergy (Verified 12/19/16 02:03) Sulfa (Sulfonamide Antibiotics) Allergy (Verified 12/19/16 02:03) Swelling/neck,face,throat Home Medications: Medication Instructions Recorded Atorvastatin Calcium [Lipitor 40 80 mg PO HS 07/23/16 mg (*)] Cyanocobalamin [Vitamin B12 (*)] 1,000 mcg PO DAILY 07/23/16 Levothyroxine [Synthroid 100 mcg 100 mcg PO DAILY06 12/02/16 (*)] Omeprazole [Prilosec 20 mg] 20 mg PO DAILY PRN 12/02/16 Acetaminophen [Tylenol ES 500 mg 1,000 mg PO Q8 tab 12/11/16 (*)] Bisacodyl [Bisacodyl (*)] 5 mg PO PRN PRN tab 12/11/16 Polyethylene Glycol 3350 [Miralax 17 gm PO DAILY PRN pkt 12/11/16 17 gm (*)] Sennosides/Docusate Sodium 1 - 2 tab PO BID tab 12/11/16 [Senokot-S] traMADol [Ultram 50 mg (*)] 25 mg PO Q6H PRN #60 tab 12/11/16 Cholecalciferol Vit D3 [Vitamin D3 2,000 units PO DAILY 12/19/16 2000 units tab (OTC)] Furosemide [Lasix 20 MG (*)] 20 mg PO DAILY 12/19/16 Insulin Lispro [humALOG LISPRO 100 5 unit SC TIDMEAL PRN 12/19/16 units/ml (*)] Multivitamins [Multivitamin (*)] 1 each PO DAILY 12/19/16 Cephalexin [Keflex (*)] 500 mg PO TID #9 cap 12/23/16 Enoxaparin [Lovenox] 30 mg SC DAILY syr 12/23/16 Insulin Glargine [Lantus 100 7 units SC DAILY #1 ml 12/23/16 UNITS/ML (*)] Medical Decision Making ED Course/Re-evaluation: This is an 81 y/o female who arrives from her rehab facility for a reported low Hgb. She has no complaints and has an unremarkable exam. No occult blood on stool smear. She is taking iron supplementation which I think accounts for the black stool. Her H&H today is comparable to values taken on 12/23/16. I will attempt to contact the facility for more information. 1400: Spoke with nurse from [facility]. They sent her to the ED because her H&H was slightly low and she seemed more fatigued than previously. Reassessed patient and discussed workup with her and with her family. She is hemodynamically stable and continues to deny complaints. I recommended having her H&H checked again within the next week and follow up with GI through her rehab facility if needed. She may need additional workup for ongoing anemia. There are no at there is no evidence of hemodynamic instability. She is not hypotensive or tachycardic. Patient does not want to be admitted. Family is comfortable with this plan. Differential Diagnosis: Lower GI bleeding including but not limited to diverticulosis, tumor, AVM, hemorrhoid and anal fissure.Upper GI bleeding including but not limited to ulcer disease, gastritis, Ml-Jimenez tear, and esophageal varices. - Data Points Laboratory Results: Laboratory Results 01/26/17 10:25 01/26/17 10:25 Departure - Departure Disposition: Home, Routine, Self-Care Clinical Impression: Anemia Qualifiers: Anemia type: unspecified type Qualified Code(s): D64.9 - Anemia, unspecified Condition: Good Instructions: Anemia (ED) Additional Instructions: Your facility should check your Hct & Hgb again within the next week. You do not have blood in your stool today. The iron that you are taking can make your stool black. You might need to have additional testing done to figure out the cause of your anemia. You may require follow up with a fabric stretcher, which your rehab facility will be able to help arrange for you. Return to the ED for worsening of condition. Referrals: DENNY CARCAMO [Retired Resigned] - As per Instructions Report Scribed for: Albania Freeman Report Scribed by: Jael Daniels Date of Report: 01/26/17 Time of Report: 12:14 Physician Review and Approval Statement: 01/26/17 11:11 Portions of this note were transcribed by the medical associate. I, Dr. Albania Freeman, personally performed the history, physical exam, and medical decision- making; and confirmed the accuracy of the information in the transcribed note.
[2017-01-26 15:35] VITALS: BP 124/72; PULSE 79; RESP 18; O2SAT 97
--- NOTE | 2017-01-26 18:24 | ASMTCMCOM ---
CM Note CM Note Notes: Patient ready to discharge back to [facility]; spoke with Eric at & and they are able to send [facility] for wheelchair transport. CM available for further assistance. Date Signed: 01/26/2017 06:23 PM Electronically Signed By:Marla Villarreal RN
--- NOTE | 2017-01-26 18:25 | ASDISCHSUM ---
Discharge Information Plan Status:SNF Medically Cleared to Leave: Discharge Date:01/26/2017 05:18 PM D/C [facility] ADT D/C Disposition:Home, Routine, Self-Care Projected Discharge Date:01/26/2017 05:18 PM Transportation at D/C:Wheelchair Van Discharge Delay Reason: Follow-Up Date:01/26/2017 05:18 PM Discharge Slot: Final Diagnosis: Placement Information Patient Contact Information Contact Name:JAMAAL Relationship:Daughter Address: Work Phone: City: [facility] Phone: State/Zip Code:[place] Email: Financial Information Financial Class: Primary Plan Desc:MEDICARE OUTPATIENT Primary Plan Number:[id number] Secondary Plan Desc: [facility] Secondary Plan Number:[id number] Assessment Information [facility] CM Progress Note CM Note CM Note Notes: Patient ready to discharge back to [facility]; spoke with Eric at [facility] and they are able to send [employer] for wheelchair transport. CM available for further assistance. Date Signed: 01/26/2017 06:23 PM Electronically Signed By:Marla Villarreal RN LACE LACE Acuity / Level of Care Answers: No. Emergency dept visits in Answers: 4+ last 6 months Score: 4 Date Signed: 01/26/2017 06:24 PM Electronically Signed By:Marla Villarreal RN Intervention Information
== END 2017-01-26 17:18 | disposition home or self-care (01) ==
LOC: EDUNIT#
DX: D64.9 Anemia, unspecified (principal); I25.10 Atherosclerotic heart disease of native coronary artery without angina pectoris; I25.2 Old myocardial infarction; N18.3 Chronic kidney disease, stage 3 (moderate); E11.22 Type 2 diabetes mellitus with diabetic chronic kidney disease; I50.20 Unspecified systolic (congestive) heart failure; Z79.4 Long term (current) use of insulin; Z86.73 Personal history of transient ischemic attack (TIA), and cerebral infarction without residual deficits; Z87.891 Personal history of nicotine dependence; Z95.1 Presence of aortocoronary bypass graft